=== PATIENT | female | born 1965 | race Caucasian/White ===

== ENCOUNTER 2018-06-06 13:19 | Inpatient (IN) | payer MEDICARE ==
[2018-06-06] VITALS (11 sets, daily range): BP systolic 134–181; BP diastolic 75–103; BMI 54.3
[~2018-06-06] VITALS: Ht 157.5 cm; Wt 132.0 kg
--- NOTE | ~2018-06-06 | MORECARE ---
CASE MANAGEMENT DISCHARGE SUMMARY PATIENT: DARLINE HUDDLESTON UNIT: [id number] ADM DATE: 06/06/18 AGE: 53 : 65 SEX: F ROOM/BED: D.2235 AUTHOR: RIGO,DOC PHYSICIAN: REFERRING PHYSICIAN: KACY HENSON MD DATE OF SERVICE: 06/12/18 Discharge Plan Patient Name: DARLINE HUDDLESTON Facility: [facility]:[place] : 1965 Planned Disposition: Home Anticipated Discharge Date: Discharge Date: Expected LOS: Initial Reviewer: [email or web address] Initial Review Date: 06/06/2018 Generated: 06/12/18 1:59 pm Comments DCP- Discharge Planning Updated by [email or web address]: Yomaira Lenz on 06/12/18 11:[address] Met with patient, she does not have home oxygen. Walk test ordered and I spoke with Javon with RT. Her DME company for CPAP and her nebulizer is [employer]. I will order oxygen if she qualifies. CM will continue to follow and assist with discharge planning/needs. DCP- Discharge Planning Updated by [email or web address]: Isabel Olivo on 06/09/18 5:[address] Patient Name: DARLINE HUDDLESTON Admission Status: ER Accout number: [id number] Admission Date: 06-06-2018 : 1965 Admission Diagnosis: Attending: KACY HENSON Current LOS: 3 Anticipated DC Date: Planned Disposition: Home Primary Insurance: MEDICARE A & B Discharge Planning Comments: CM met with patient at bedside. Patient plans on returning to her home. She states that she lives alone. She does have home 02 , nebulizer and a cane. Patient denies any discharge needs at this time. CM will continue to follow and assist as needed with discharge planning / needs. Nitroglycerin Neutralizer: Isabel Olivo DCPIA - Discharge Planning Initial Assessment Updated by [email or web address]: Isabel Olivo on 06/09/18 6:26 pm * Is the patient Alert and Oriented? Yes * How many steps to enter\exit or inside your home? * PCP Dr Glass * Pharmacy [facility] * Preadmission Environment Home Alone * ADLs Independent * Equipment Nebulizer * Other Equipment 02 , cane * List name and contact numbers for known caregivers / representatives who currently or will assist patient after discharge: Christina Flower [phone] * Verbal permission to speak to the caregivers and representatives has been obtained from the patient. N/A * Community resources currently utilized None * Additional services required to return to the preadmission environment? No * Can the patient safely return to the preadmission environment? Yes * Has this patient been hospitalized within the prior 30 days at any hospital? No Last DP export: 06/09/18 5:30 p Patient Name: DARLINE HUDDLESTON Page 58059 at 1259 All edits/amendments must be made on the electronic document DICTATION DATE: 06/12/181257 MESH CUTTER: ESCOBAR 06/12/181257 RPT#: [id number] DC DATE: STATUS: ADM IN [facility] [address] [place] [address] END OF REPORT
--- NOTE | ~2018-06-06 | CN ---
PATIENT NAME:DARLINE LOPEZ MEDICAL RECORD: [id number] : 65 LOCATION:[id number] ADMIT DATE: 06/06/18 ACCOUNT: [id number] CONSULTING PHYSICIAN: BRYAN HARDIN MD REFERRING PHYSICIAN: KACY HENSON MD DATE OF CONSULTATION: 06/07/2018 CONSULT REQUESTING PHYSICIAN: Kacy Henson MD REASON FOR CONSULTATION: Acute exacerbation of COPD, pneumonia. HISTORY OF PRESENT ILLNESS: Ms. Lopez is a 53-year-old female who has a history of obstructive sleep apnea, COPD. According to the patient, she is sick for the last 2 weeks, but this week she has a low-grade fever and her breathing was getting worse. EMS was called and the patient was brought into the ER. She was put on BiPAP. Now, she is feeling a little bit better. She coughed without much sputum production. Denies any chest pain. She has gained significant amount of weight over the last few weeks. REVIEW OF SYSTEMS: As in history of present illness. PAST MEDICAL HISTORY: 1. Obstructive sleep apnea, on CPAP. 2. COPD. 3. Diabetes mellitus. 4. Chronic back ache. ALLERGIES: There are no known drug allergy. MEDICATIONS: On [employer] is reviewed. PERSONAL AND SOCIAL HISTORY: The patient is an ex-smoker. She is a nondrinker. FAMILY HISTORY: Noncontributory. PHYSICAL EXAMINATION: GENERAL: Now, the patient is lying comfortably in bed. She is not in acute distress. VITAL SIGNS: The blood pressure is 159/88, pulse is 83, respiration is 20, temperature is 98.4, and SpO2 is 97% on 35% BiPAP. HEENT: Conjunctivae are pink. Sclerae are not icteric. NECK: Supple, no JVD. CHEST: There are wheeze on forceful expiration. There are crackles at the left base. HEART: Rhythm regular, normal sound, no murmur. ABDOMEN: Soft, bowel sounds present. No hepatosplenomegaly. RECTAL: Deferred. EXTREMITIES: No cyanosis, no clubbing. There is 1+ pedal edema. CENTRAL NERVOUS SYSTEM: The patient is awake and alert. There are no obvious cranial nerve abnormality. The gait was not tested. CHEST RADIOGRAPH: There is a patchy infiltrate in the left mid lung and left lower lobe. The D-dimer is positive. CONSULT REPORT [id number] DARLINE LOPEZ OTHER LABORATORY DATA: CBC: The WBC is 10.1, hemoglobin 10.8, hematocrit 35, the platelet count 140. Chemistry: Sodium 136, potassium 4.5, BUN is 13, creatinine 0.7. ABG: The pH is 7.37, pCO2 of 52.6, pO2 is 77, bicarbonate is 30.7. IMPRESSION: 1. Acute hypoxic respiratory failure. 2. Acute exacerbation of COPD. 3. Pneumonia, left mid lung, most likely community-acquired pneumonia. 4. Dyspnea on exertion. 5. Obstructive sleep apnea. 6. Morbid obesity. 7. Positive D-dimer, rule out PTE. RECOMMENDATION: 1. Continue Levaquin. I will add Rocephin IV to cover for Gram-negative laith and CAP. 2. Methylprednisolone IV. 3. Brovana, budesonide nebulizer. 4. Albuterol/ipratropium nebulizer. 5. Check ultrasound of the lower extremity. 6. Lovenox noted. 7. The patient can use her own CPAP machine. Dr. Henson, thank you for involving me in the care of Ms. Lopez. TRANSINT:[id number] Voice Confirmation ID: [id number] DOCUMENT ID: [id number] BRYAN HARDIN MD CC: [id number] DICTATION DATE: 06/07/18 1151 VOCATIONAL PSYCHOLOGIST: 06/07/18 1359 ADM IN [facility] [address] [place] [address]
--- NOTE | ~2018-06-06 | MORECARE ---
CASE MANAGEMENT DISCHARGE SUMMARY PATIENT: DARLINE HUDDLESTON UNIT: [id number] ADM DATE: 06/06/18 AGE: 53 : 65 SEX: F ROOM/BED: D.2725 AUTHOR: RIGO,DOC PHYSICIAN: REFERRING PHYSICIAN: KACY HENSON MD DATE OF SERVICE: 06/13/18 Discharge Plan Patient Name: DARLINE HUDDLESTON Facility: [facility]:[place] : 1965 Planned Disposition: Home Anticipated Discharge Date: Discharge Date: Expected LOS: Initial Reviewer: [email or web address] Initial Review Date: 06/06/2018 Generated: 06/13/18 12:30 pm Comments DCP- Discharge Planning Updated by [email or web address]: Yomaira Lenz on 06/13/18 10:[address] Received order for discharge. States her sister is picking her up at 3:00. perinatal coordinator informed. Refuses home health. States "I get around pretty good and my sister can help me if I need it." She does have her portable oxygen, I told her she needed to notify [employer] when she leaves for home oxygen to be set up. CM will continue to follow and assist with discharge planning/needs. DCP- Discharge Planning Updated by [email or web address]: Yomaira Lenz on 06/12/18 3:[address] Portable oxygen has been delivered to patient for home use. CM will continue to follow and assist with discharge planning/needs. DCP- Discharge Planning Updated by [email or web address]: Yomaira Lenz on 06/12/18 1:[address] She does qualify for home oxygen per walk test. I called [employer], they are delivering it to her room today. Clinical faxed to [facility]. CM will continue to follow and assist with discharge planning/needs. DCP- Discharge Planning Updated by [email or web address]: Yomaira Lenz on 06/12/18 11:[address] Met with patient, she does not have home oxygen. Walk test ordered and I spoke with Javon with RT. Her DME company for CPAP and her nebulizer is [employer]. I will order oxygen if she qualifies. CM will continue to follow and assist with discharge planning/needs. DCP- Discharge Planning Updated by [email or web address]: Isabel Olivo on 06/09/18 5:[address] Patient Name: DARLINE HUDDLESTON Admission Status: ER Accout number: [id number] Admission Date: 06-06-2018 : 1965 Admission Diagnosis: Attending: KACY HENSON Current LOS: 3 Anticipated DC Date: Planned Disposition: Home Primary Insurance: MEDICARE A & B Discharge Planning Comments: CM met with patient at bedside. Patient plans on returning to her home. She states that she lives alone. She does have home 02 , nebulizer and a cane. Patient denies any discharge needs at this time. CM will continue to follow and assist as needed with discharge planning / needs. Manuscripts Archivist: Isabel Olivo DCPIA - Discharge Planning Initial Assessment Updated by [email or web address]: Isabel Olivo on 06/09/18 6:26 pm * Is the patient Alert and Oriented? Yes * How many steps to enter\\exit or inside your home? * PCP Dr Glass * Pharmacy [facility] [place] * Preadmission Environment Home Alone * ADLs Independent * Equipment Nebulizer * Other Equipment 02 , cane * List name and contact numbers for known caregivers / representatives who currently or will assist patient after discharge: Christina Flower [phone] * Verbal permission to speak to the caregivers and representatives has been obtained from the patient. N/A * Community resources currently utilized None * Additional services required to return to the preadmission environment? No * Can the patient safely return to the preadmission environment? Yes * Has this patient been hospitalized within the prior 30 days at any hospital? No Coverage Notice Reviewer: [id number] Thierno Lenz Notice Issued Date-Time: 06/13/2018 11:07 Notice Type: IM Discharge Notice Notice Delivered To: Patient Relationship to Patient: Self Fluorescent Solution Mixer Name: Delivery Method: HAND - Hand Delivered Luli Days: Prior Verbal Notification: Recipient Understood Notice: Yes Recipient Signature: Yes Med Rec Note Co-signed by Attending: Coverage Notice Comment: IMM explained, signed, copy given, original placed in MR Last DP export: 06/12/18 3:08 p Patient Name: DARLINE HUDDLESTON Page 24814 at 1131 All edits/amendments must be made on the electronic document DICTATION DATE: 06/13/181129 RESEARCH ASSISTANT PROFESSOR: ESCOBAR 06/13/18 113 RPT#: [id number] NE DATE: STATUS: ADM IN [facility] [address] [place] [address] END OF REPORT
--- NOTE | ~2018-06-06 | MORECARE ---
CASE MANAGEMENT DISCHARGE SUMMARY PATIENT: DARLINE HUDDLESTON UNIT: [id number] ADM DATE: 06/06/18 AGE: 53 : 65 SEX: F ROOM/BED: D.2235 AUTHOR: NATALIYA SIERRA PHYSICIAN: REFERRING PHYSICIAN: KACY HENSON MD DATE OF SERVICE: 06/12/18 Discharge Plan Patient Name: DARLINE HUDDLESTON Facility: [facility]:[place] : 1965 Planned Disposition: Home Anticipated Discharge Date: Discharge Date: Expected LOS: Initial Reviewer: [email or web address] Initial Review Date: 06/06/2018 Generated: 06/12/18 5:08 pm Comments DCP- Discharge Planning Updated by [email or web address]: Yomaira Lenz on 06/12/18 3:[address] Portable oxygen has been delivered to patient for home use. CM will continue to follow and assist with discharge planning/needs. DCP- Discharge Planning Updated by [email or web address]: Yomaira Lenz on 06/12/18 1:[address] She does qualify for home oxygen per walk test. I called [facility], they are delivering it to her room today. Clinical faxed to [facility]. CM will continue to follow and assist with discharge planning/needs. DCP- Discharge Planning Updated by [email or web address]: Yomaira Lenz on 06/12/18 11:[address] Met with patient, she does not have home oxygen. Walk test ordered and I spoke with Javon with RT. Her DME company for CPAP and her nebulizer is [employer]. I will order oxygen if she qualifies. CM will continue to follow and assist with discharge planning/needs. DCP- Discharge Planning Updated by [email or web address]: Isabel Olivo on 06/09/18 5:[address] Patient Name: DARLINE HUDDLESTON Admission Status: ER Accout number: [id number] Admission Date: 06-06-2018 : 1965 Admission Diagnosis: Attending: KACY HENSON Current LOS: 3 Anticipated DC Date: Planned Disposition: Home Primary Insurance: MEDICARE A & B Discharge Planning Comments: CM met with patient at bedside. Patient plans on returning to her home. She states that she lives alone. She does have home 02 , nebulizer and a cane. Patient denies any discharge needs at this time. CM will continue to follow and assist as needed with discharge planning / needs. Stablehand: Isabel Olivo DCPIA - Discharge Planning Initial Assessment Updated by [email or web address]: Isabel Olivo on 06/09/18 6:26 pm * Is the patient Alert and Oriented? Yes * How many steps to enter\exit or inside your home? * PCP Dr Glass * Pharmacy [facility] [place] * Preadmission Environment Home Alone * ADLs Independent * Equipment Nebulizer * Other Equipment 02 , cane * List name and contact numbers for known caregivers / representatives who currently or will assist patient after discharge: Christina Flower [phone] * Verbal permission to speak to the caregivers and representatives has been obtained from the patient. N/A * Community resources currently utilized None * Additional services required to return to the preadmission environment? No * Can the patient safely return to the preadmission environment? Yes * Has this patient been hospitalized within the prior 30 days at any hospital? No Last DP export: 06/12/18 1:15 p Patient Name: DARLINE HUDDLESTON Page 01675 at 1608 All edits/amendments must be made on the electronic document DICTATION DATE: 06/12/181607 SSN/SSBN WEAPONS EQUIPMENT OPERATOR: ESCOBAR 06/12/181607 RPT#: [id number] DC DATE: STATUS: ADM IN [facility] [address] [place] [address] END OF REPORT
--- NOTE | ~2018-06-06 | MORECARE ---
CASE MANAGEMENT DISCHARGE SUMMARY PATIENT: DARLINE HUDDLESTON UNIT: [id number] ADM DATE: 06/06/18 AGE: 53 : 65 SEX: F ROOM/BED: D.2313 AUTHOR: RIGO,DOC PHYSICIAN: REFERRING PHYSICIAN: KACY HENSON MD DATE OF SERVICE: 06/09/18 Discharge Plan Patient Name: DARLINE HUDDLESTON Facility: [facility]:[place] : 1965 Planned Disposition: Home Anticipated Discharge Date: Discharge Date: Expected LOS: Initial Reviewer: [email or web address] Initial Review Date: 06/06/2018 Generated: 06/09/18 7:30 pm Comments DCP- Discharge Planning Updated by [email or web address]: Isabel Olivo on 06/09/18 5:[address] Patient Name: DARLINE HUDDLESTON Admission Status: ER Accout number: [id number] Admission Date: 06-06-2018 : 1965 Admission Diagnosis: Attending: KACY HENSON Current LOS: 3 Anticipated DC Date: Planned Disposition: Home Primary Insurance: MEDICARE A & B Discharge Planning Comments: CM met with patient at bedside. Patient plans on returning to her home. She states that she lives alone. She does have home 02 , nebulizer and a cane. Patient denies any discharge needs at this time. CM will continue to follow and assist as needed with discharge planning / needs. Forwarder Operator: Isabel Olivo DCPIA - Discharge Planning Initial Assessment Updated by [email or web address]: Isabel Olivo on 06/09/18 6:26 pm * Is the patient Alert and Oriented? Yes * How many steps to enter\exit or inside your home? * PCP Dr Glass * Pharmacy [facility] [place] * Preadmission Environment Home Alone * ADLs Independent * Equipment Nebulizer * Other Equipment 02 , cane * List name and contact numbers for known caregivers / representatives who currently or will assist patient after discharge: Christina Flower [phone] * Verbal permission to speak to the caregivers and representatives has been obtained from the patient. N/A * Community resources currently utilized None * Additional services required to return to the preadmission environment? No * Can the patient safely return to the preadmission environment? Yes * Has this patient been hospitalized within the prior 30 days at any hospital? No Patient Name: DARLINE HUDDLESTON Page 84544 at 1830 All edits/amendments must be made on the electronic document DICTATION DATE: 06/09/181828 MIRROR MAKER: ESCOBAR 06/09/181828 RPT#: [id number] DC DATE: STATUS: ADM IN [facility] [address] [place] [address] END OF REPORT
--- NOTE | ~2018-06-06 | MORECARE ---
CASE MANAGEMENT DISCHARGE SUMMARY PATIENT: DARLINE HUDDLESTON UNIT: [id number] ADM DATE: 06/06/18 AGE: 53 : 65 SEX: F ROOM/BED: D.2235 AUTHOR: RIGO,DOC PHYSICIAN: REFERRING PHYSICIAN: KACY HENSON MD DATE OF SERVICE: 06/12/18 Discharge Plan Patient Name: DARLINE HUDDLESTON Facility: [facility]:[place] : 1965 Planned Disposition: Home Anticipated Discharge Date: Discharge Date: Expected LOS: Initial Reviewer: [id number] Initial Review Date: 06/06/2018 Generated: 06/12/18 3:15 pm Comments DCP- Discharge Planning Updated by [email or web address]: Yomaira Lenz on 06/12/18 1:[address] She does qualify for home oxygen per walk test. I called [employer], they are delivering it to her room today. Clinical faxed to [facility]. CM will continue to follow and assist with discharge planning/needs. DCP- Discharge Planning Updated by [email or web address]: Yomaira Lenz on 06/12/18 11:[address] Met with patient, she does not have home oxygen. Walk test ordered and I spoke with Javon with RT. Her DME company for CPAP and her nebulizer is [employer]. I will order oxygen if she qualifies. CM will continue to follow and assist with discharge planning/needs. DCP- Discharge Planning Updated by [email or web address]: Isabel Olivo on 06/09/18 5:[address] Patient Name: DARLINE HUDDLESTON Admission Status: ER Accout number: [id number] Admission Date: 06-06-2018 : 1965 Admission Diagnosis: Attending: KACY HENSON Current LOS: 3 Anticipated DC Date: Planned Disposition: Home Primary Insurance: MEDICARE A & B Discharge Planning Comments: CM met with patient at bedside. Patient plans on returning to her home. She states that she lives alone. She does have home 02 , nebulizer and a cane. Patient denies any discharge needs at this time. CM will continue to follow and assist as needed with discharge planning / needs. Pricing Consultant: Isabel Olivo DCPIA - Discharge Planning Initial Assessment Updated by [email or web address]: Isabel Olivo on 06/09/18 6:26 pm * Is the patient Alert and Oriented? Yes * How many steps to enter\exit or inside your home? * PCP Dr Glass * Pharmacy [facility] [place] * Preadmission Environment Home Alone * ADLs Independent * Equipment Nebulizer * Other Equipment 02 , cane * List name and contact numbers for known caregivers / representatives who currently or will assist patient after discharge: Christina Flower [phone] * Verbal permission to speak to the caregivers and representatives has been obtained from the patient. N/A * Community resources currently utilized None * Additional services required to return to the preadmission environment? No * Can the patient safely return to the preadmission environment? Yes * Has this patient been hospitalized within the prior 30 days at any hospital? No External Providers [facility] Next Contact Date: Service Request Date: Service Type: Resolution: Reviewer: Comments: Last DP export: 06/12/18 11:59 a Patient Name: DARLINE HUDDLESTON Page 81703 at 1415 All edits/amendments must be made on the electronic document DICTATION DATE: 06/12/181414 RIG MECHANIC: ESCOBAR 06/12/181414 RPT#: [id number] [place] DATE: STATUS: ADM IN [place] [address] [place] [address] END OF REPORT
[2018-06-06] MEDS ORDERED: NOVOLOG100 UNIT/1 SQ (13:27)
[2018-06-06] MEDS ORDERED: ZOFRAN ODT4 MG/UDTAB PO (13:27)
[2018-06-06] MEDS ORDERED: LEVEMIR IN100 UNITS/ SC (13:27)
[2018-06-06] MEDS ORDERED: NORCO 10-325 TA1 TAB PO (13:27)
[2018-06-06] MEDS ORDERED: ZOLOFT100 MG PO (13:28)
[2018-06-06] MEDS ORDERED: PROPYLTHIOURACI50 MG PO (13:28)
[2018-06-06] MEDS ORDERED: OXYBUTYNIN10 MG/BOTT PO (13:28)
[2018-06-06] MEDS ORDERED: TESSALON PERLE100 MG PO (13:28)
[2018-06-06] MEDS ORDERED: VICTOZA0.6 MG/0.1 SQ (13:29)
[2018-06-06] MEDS ORDERED: VENTOLIN HFA18 GM INH (13:29)
[2018-06-06 14:20] LABS: BASOPHILS 0.4 % (0-2); EOSINOPHILS 0.7 % (0-7); HEMOGLOBIN 10.8 g/dL (12-16); IMMATURE GRANULOCYTES 0.3 % (0-5); LYMPHOCYTES 11.4 % (15-50); MCH 27.9 pg (26.0-34.0); MCHC 30.9 g/dL (31.0-37.0); MCV 90.4 fL (80.0-100.0); MEAN PLATELET VOLUME 11.1 fL (7.4-10.4); MONOCYTES 8.6 % (2-11); NEUTROPHILS 78.6 % (40-80); PLATELET COUNT 140 10x3/uL (130-400); RBC 3.87 10x6/uL (4.00-5.40); RDW 15.2 % (11.5-14.5); WBC 10.1 10x3/uL (4.8-10.8)
[2018-06-06 14:31] LABS: APTT 28.7 SECONDS (22.8-39.4); INR 1.13 (0.85-1.17)
[2018-06-06 14:36] LABS: ALKALINE PHOSPHATASE 84 U/L (46-116); ALT (SGPT) 36 U/L (10-68); BILIRUBIN - TOTAL 0.35 mg/dL (0.2-1.3); CALC OSMOLALITY 281 mosm/kg (275-300); CHLORIDE - SERUM 104 mmol/L (98-107); CREATININE - SERUM 0.8 mg/dL (0.6-1.3); GLUCOSE 191 mg/dL (74-106); POTASSIUM - SERUM 4.4 mmol/L (3.5-5.1); PROTEIN - SERUM 7.1 g/dL (6.4-8.2); SODIUM 138 mmol/L (136-145); UREA NITROGEN 15 mg/dL (7-18); eGFR NON AFRICAN AMERICAN 79 mL/min (90-120)
[2018-06-06 14:46] LABS: CKMB 1.2 U/L (0.0-3.6); CREATINE KINASE 311 UL (21-215); PRO BNP 155 pg/mL (0-125); TROPONIN-I < 0.017 ng/mL (0.000-0.060)
[2018-06-06 15:55] LABS: APPEARANCE CLEAR (CLEAR); BILIRUBIN NEGATIVE (NEGATIVE); COLOR YELLOW (YELLOW); GLUCOSE NEGATIVE (NEGATIVE); KETONE NEGATIVE (NEGATIVE); NITRITE NEGATIVE (NEGATIVE); PROTEIN NEGATIVE (NEGATIVE); UROBILINOGEN NORMAL (NORMAL)
[2018-06-06 15:56] LABS: BACTERIA FEW /hpf (NONE SEEN); EPITHELIAL CELLS 0-5 /hpf (0-5); RED CELLS - URINE 0-5 /hpf (0-5); WHITE CELLS - URINE 0-5 /hpf (0-5)
[2018-06-07] VITALS (24 sets, daily range): BP systolic 130–175; BP diastolic 76–107; BMI 54.1
[2018-06-07 04:02] LABS: ALBUMIN 3.1 g/dL (3.4-5.0); ALKALINE PHOSPHATASE 85 U/L (46-116); CALCIUM 8.4 mg/dL (8.5-10.1); CARBON DIOXIDE 29.3 mmol/L (21.0-32.0); CHLORIDE - SERUM 99 mmol/L (98-107); CREATININE - SERUM 0.7 mg/dL (0.6-1.3); MAGNESIUM - SERUM 2.1 mg/dL (1.8-2.4); POTASSIUM - SERUM 4.5 mmol/L (3.5-5.1); PROTEIN - SERUM 7.6 g/dL (6.4-8.2); SODIUM 136 mmol/L (136-145); UREA NITROGEN 13 mg/dL (7-18); eGFR NON AFRICAN AMERICAN > 90 mL/min (90-120)
[2018-06-07 04:07] LABS: ALT (SGPT) 48 U/L (10-68); CALC OSMOLALITY 280 mosm/kg (275-300); GLUCOSE 260 mg/dL (74-106)
[2018-06-07 04:10] LABS: BASOPHILS 0.3 % (0-2); EOSINOPHILS 0 % (0-7); HEMATOCRIT 37.9 % (36.0-48.0); HEMOGLOBIN 11.9 g/dL (12-16); IMMATURE GRANULOCYTES 0.6 % (0-5); LYMPHOCYTES 7.6 % (15-50); MCHC 31.4 g/dL (31.0-37.0); MCV 89.2 fL (80.0-100.0); MEAN PLATELET VOLUME 11.7 fL (7.4-10.4); MONOCYTES 2.8 % (2-11); NEUTROPHILS 88.7 % (40-80); PLATELET COUNT 156 10x3/uL (130-400); RBC 4.25 10x6/uL (4.00-5.40); RDW 14.8 % (11.5-14.5); WBC 10.2 10x3/uL (4.8-10.8)
[2018-06-08] VITALS (25 sets, daily range): BP systolic 94–164; BP diastolic 66–118; Ht 157.5 cm; Wt 132.0 kg
[2018-06-08 04:30] LABS: BASOPHILS 0.1 % (0-2); EOSINOPHILS 0 % (0-7); HEMATOCRIT 37.6 % (36.0-48.0); HEMOGLOBIN 11.8 g/dL (12-16); IMMATURE GRANULOCYTES 0.6 % (0-5); LYMPHOCYTES 8.8 % (15-50); MCHC 31.4 g/dL (31.0-37.0); MCV 89.1 fL (80.0-100.0); MEAN PLATELET VOLUME 11.3 fL (7.4-10.4); MONOCYTES 6.2 % (2-11); NEUTROPHILS 84.3 % (40-80); PLATELET COUNT 153 10x3/uL (130-400); RBC 4.22 10x6/uL (4.00-5.40); RDW 14.7 % (11.5-14.5)
[2018-06-08 04:31] LABS: WBC 15.6 10x3/uL (4.8-10.8)
[2018-06-08 04:59] LABS: ALBUMIN 2.9 g/dL (3.4-5.0); ANION GAP 11.5 mmol/L (8-16); BILIRUBIN - TOTAL 0.29 mg/dL (0.2-1.3); CALCIUM 8.6 mg/dL (8.5-10.1); MAGNESIUM - SERUM 2.4 mg/dL (1.8-2.4); POTASSIUM - SERUM 4.5 mmol/L (3.5-5.1); PROTEIN - SERUM 6.9 g/dL (6.4-8.2)
[2018-06-08 05:00] LABS: CREATININE - SERUM 0.9 mg/dL (0.6-1.3)
[2018-06-09] VITALS (15 sets, daily range): BP systolic 130–166; BP diastolic 76–98
[2018-06-09 04:23] LABS: BASOPHILS 0.2 % (0-2); EOSINOPHILS 0 % (0-7); HEMATOCRIT 37.4 % (36.0-48.0); HEMOGLOBIN 11.6 g/dL (12-16); IMMATURE GRANULOCYTES 1.4 % (0-5); LYMPHOCYTES 9.4 % (15-50); MCH 27.9 pg (26.0-34.0); MCV 89.9 fL (80.0-100.0); MEAN PLATELET VOLUME 11.8 fL (7.4-10.4); MONOCYTES 5.6 % (2-11); NEUTROPHILS 83.4 % (40-80); PLATELET COUNT 176 10x3/uL (130-400); RBC 4.16 10x6/uL (4.00-5.40); RDW 14.7 % (11.5-14.5); WBC 19.4 10x3/uL (4.8-10.8)
[2018-06-09 04:45] LABS: ALBUMIN 2.7 g/dL (3.4-5.0); ALKALINE PHOSPHATASE 81 U/L (46-116); ALT (SGPT) 35 U/L (10-68); BILIRUBIN - TOTAL 0.17 mg/dL (0.2-1.3); CALCIUM 8.6 mg/dL (8.5-10.1); CARBON DIOXIDE 29.6 mmol/L (21.0-32.0); CHLORIDE - SERUM 103 mmol/L (98-107); CREATININE - SERUM 0.8 mg/dL (0.6-1.3); MAGNESIUM - SERUM 2.3 mg/dL (1.8-2.4); POTASSIUM - SERUM 4.2 mmol/L (3.5-5.1); SODIUM 139 mmol/L (136-145); UREA NITROGEN 27 mg/dL (7-18); eGFR NON AFRICAN AMERICAN 79 mL/min (90-120)
[2018-06-09 04:46] LABS: CALC OSMOLALITY 293 mosm/kg (275-300); GLUCOSE 302 mg/dL (74-106)
[2018-06-10 03:00] VITALS: BP 147/85
[2018-06-10 04:47] LABS: BASOPHILS 0.2 % (0-2); EOSINOPHILS 0 % (0-7); HEMATOCRIT 38.7 % (36.0-48.0); LYMPHOCYTES 11.5 % (15-50); MCH 28.1 pg (26.0-34.0); MCV 90.6 fL (80.0-100.0); MEAN PLATELET VOLUME 11.3 fL (7.4-10.4); MONOCYTES 7.1 % (2-11); NEUTROPHILS 78.2 % (40-80); PLATELET COUNT 186 10x3/uL (130-400); RBC 4.27 10x6/uL (4.00-5.40); RDW 14.6 % (11.5-14.5); WBC 19.8 10x3/uL (4.8-10.8)
[2018-06-10 05:06] LABS: ALBUMIN 2.6 g/dL (3.4-5.0); ALKALINE PHOSPHATASE 73 U/L (46-116); ALT (SGPT) 33 U/L (10-68); BILIRUBIN - TOTAL 0.17 mg/dL (0.2-1.3); CALCIUM 8.6 mg/dL (8.5-10.1); CARBON DIOXIDE 31.3 mmol/L (21.0-32.0); CREATININE - SERUM 0.8 mg/dL (0.6-1.3); GLUCOSE 274 mg/dL (74-106); MAGNESIUM - SERUM 2.2 mg/dL (1.8-2.4); PROTEIN - SERUM 6.9 g/dL (6.4-8.2); UREA NITROGEN 30 mg/dL (7-18); eGFR NON AFRICAN AMERICAN 79 mL/min (90-120)
[2018-06-10 07:00] VITALS: BP 164/89
[2018-06-10 07:10] LABS: CALC OSMOLALITY 298 mosm/kg (275-300); CHLORIDE - SERUM 105 mmol/L (98-107); POTASSIUM - SERUM 4.6 mmol/L (3.5-5.1); SODIUM 142 mmol/L (136-145)
[2018-06-10 08:00] VITALS: BP 172/99
[2018-06-10 11:00] VITALS: BP 177/98
[2018-06-10 21:31] VITALS: BP 141/71
[2018-06-11 06:19] VITALS: BP 132/69
[2018-06-11 06:27] LABS: BASOPHILS 0.2 % (0-2); EOSINOPHILS 0.1 % (0-7); HEMATOCRIT 38.4 % (36.0-48.0); IMMATURE GRANULOCYTES 5.6 % (0-5); LYMPHOCYTES 15.2 % (15-50); MCHC 31.3 g/dL (31.0-37.0); MCV 89.7 fL (80.0-100.0); MEAN PLATELET VOLUME 11.3 fL (7.4-10.4); MONOCYTES 8.2 % (2-11); NEUTROPHILS 70.7 % (40-80); PLATELET COUNT 186 10x3/uL (130-400); RBC 4.28 10x6/uL (4.00-5.40); RDW 14.4 % (11.5-14.5); WBC 19.9 10x3/uL (4.8-10.8)
[2018-06-11 06:45] LABS: ALBUMIN 2.8 g/dL (3.4-5.0); ALKALINE PHOSPHATASE 73 U/L (46-116); ALT (SGPT) 32 U/L (10-68); BILIRUBIN - TOTAL 0.17 mg/dL (0.2-1.3); CALCIUM 8.8 mg/dL (8.5-10.1); CARBON DIOXIDE 30.4 mmol/L (21.0-32.0); CREATININE - SERUM 0.8 mg/dL (0.6-1.3); GLUCOSE 262 mg/dL (74-106); UREA NITROGEN 29 mg/dL (7-18); eGFR NON AFRICAN AMERICAN 79 mL/min (90-120)
[2018-06-11 07:03] LABS: CALC OSMOLALITY 293 mosm/kg (275-300); CHLORIDE - SERUM 103 mmol/L (98-107); POTASSIUM - SERUM 4.5 mmol/L (3.5-5.1); SODIUM 140 mmol/L (136-145)
[2018-06-11 09:08] VITALS: BP 176/78
[2018-06-11 12:13] VITALS: BP 156/76
[2018-06-11 12:17] LABS: IMMUNOGLOBULIN A 332 mg/dL (87-352); IMMUNOGLOBULIN G 1069 mg/dL (700-1600)
[2018-06-11 17:07] VITALS: BP 140/74
[2018-06-11 20:45] VITALS: BP 173/83
[2018-06-12 01:09] VITALS: BP 164/74
[2018-06-12 04:49] VITALS: BP 154/70
[2018-06-12 05:23] LABS: ALBUMIN 2.8 g/dL (3.4-5.0); ALKALINE PHOSPHATASE 68 U/L (46-116); ALT (SGPT) 32 U/L (10-68); BILIRUBIN - TOTAL 0.28 mg/dL (0.2-1.3); CALCIUM 8.8 mg/dL (8.5-10.1); CARBON DIOXIDE 36.7 mmol/L (21.0-32.0); CHLORIDE - SERUM 101 mmol/L (98-107); CREATININE - SERUM 0.8 mg/dL (0.6-1.3); PHOSPHOROUS 4.7 mg/dL (2.5-4.9); POTASSIUM - SERUM 4.6 mmol/L (3.5-5.1); PROTEIN - SERUM 7.1 g/dL (6.4-8.2); SODIUM 143 mmol/L (136-145); UREA NITROGEN 26 mg/dL (7-18); eGFR NON AFRICAN AMERICAN 79 mL/min (90-120)
[2018-06-12 05:25] LABS: CALC OSMOLALITY 293 mosm/kg (275-300); GLUCOSE 176 mg/dL (74-106)
[2018-06-12 05:37] LABS: BASOPHILS 0.2 % (0-2); EOSINOPHILS 0 % (0-7); HEMOGLOBIN 12.6 g/dL (12-16); IMMATURE GRANULOCYTES 6.4 % (0-5); LYMPHOCYTES 14.5 % (15-50); MCHC 31.5 g/dL (31.0-37.0); MCV 88.9 fL (80.0-100.0); MEAN PLATELET VOLUME 11.3 fL (7.4-10.4); MONOCYTES 7.1 % (2-11); NEUTROPHILS 71.8 % (40-80); PLATELET COUNT 183 10x3/uL (130-400); RDW 14.2 % (11.5-14.5); WBC 20.8 10x3/uL (4.8-10.8)
[2018-06-12 08:33] VITALS: BP 185/94
[2018-06-12 14:35] VITALS: BP 156/82
[2018-06-12 20:31] VITALS: BP 162/69
[2018-06-12 21:08] LABS: IMMUNOGLOBULIN E 383 IU/mL (0-100)
[2018-06-13 00:50] VITALS: BP 135/77
[2018-06-13 05:03] VITALS: BP 164/74
[2018-06-13 08:57] VITALS: BP 105/57
[2018-06-13] MEDS ORDERED: OMNICEF300 MG PO (10:41)
[2018-06-13] MEDS ORDERED: LISINOPRIL10 MG PO (10:43)
[2018-06-13] MEDS ORDERED: PREDNISONE10 MG PO (10:49)
[2018-06-13 12:48] VITALS: BP 93/50
== END 2018-06-13 18:05 | disposition home or self-care (01) | DRG 193 ==
LOC: D.ER 13:19 → D.EDHOLD 16:10 → D.ICU 16:10 → D.MS 06-10 16:15
PROVIDERS: Family Medicine; Internal Medicine Pulmonary Disease
PROC: 5A09357 Assistance with Respiratory Ventilation, Less than 24 Consecutive Hours, Continuous Positive Airway Pressure (ICD-10-PCS; principal; 2018-06-06)
DX: J18.9 Pneumonia, unspecified organism (principal); J96.01 Acute respiratory failure with hypoxia; J96.02 Acute respiratory failure with hypercapnia; Z68.43 Body mass index [BMI] 50.0-59.9, adult; J47.1 Bronchiectasis with (acute) exacerbation; I11.0 Hypertensive heart disease with heart failure; I50.9 Heart failure, unspecified; E66.01 Morbid (severe) obesity due to excess calories; G47.33 Obstructive sleep apnea (adult) (pediatric); E11.9 Type 2 diabetes mellitus without complications; G25.2 Other specified forms of tremor; G89.29 Other chronic pain; E04.9 Nontoxic goiter, unspecified; Z86.59 Personal history of other mental and behavioral disorders

== ENCOUNTER 2018-06-30 00:07 | Inpatient (IN) | payer MEDICARE ==
[2018-06-30] VITALS (7 sets, daily range): BP systolic 101–144; BP diastolic 56–89; Ht 157.5 cm; Wt 124.5 kg
[~2018-06-30] VITALS: Ht 157.5 cm; Wt 124.5 kg
--- NOTE | ~2018-06-30 | MORECARE ---
CASE MANAGEMENT DISCHARGE SUMMARY PATIENT: DARLINE HUDDLESTON UNIT: [id number] ADM DATE: 06/30/18 AGE: 53 : 65 SEX: F ROOM/BED: D.2202 AUTHOR: NATALIYA SIERRA PHYSICIAN: REFERRING PHYSICIAN: MIL FUNEZ MD DATE OF SERVICE: 07/03/18 Discharge Plan Patient Name: DARLINE HUDDLESTON Facility: [facility]:[place] : 1965 Planned Disposition: Home Anticipated Discharge Date: Discharge Date: 07/03/2018 Expected LOS: 0 Initial Reviewer: [email or web address] Initial Review Date: 06/30/2018 Generated: 07/03/18 5:07 pm Comments DCP- Discharge Planning Updated by [email or web address]: Yomaira Delfin on 07/03/18 11:[address] Received order for discharge. States she is going home and one of her friends will pick her up. She has her portable oxygen here. States she has oxygen and nebulizer from [employer] States "I don't think I need it though, my oxygen level is always good without it." States she receives her neb meds from the pharmacy and it is 100% paid. Declines home health. States "I have big dogs and I don't need it." CM will continue to follow and assist with discharge planning/needs. DCP- Discharge Planning Updated by [email or web address]: Susan Benson on 06/30/18 11:[address] Patient Name: DARLINE HUDDLESTON Admission Status: ER Accout number: [id number] Admission Date: 06-30-2018 : 1965 Admission Diagnosis: Attending: MIL FUNEZ Current LOS: 1 Anticipated DC Date: Planned Disposition: Home Primary Insurance: MEDICARE A & B Discharge Planning Comments: CM met with patient to assess discharge planning needs. Patient stated that she lives independently at home where she plans to return. She states that she will drive herself home. She does have portable O2 from [employer]. She also has a nebulizer and grab bars in her shower. She stated that she does not want home health. There are 5 steps to enter in her home. She states that her home is safe to return home. CM will continue to follow and assist with DC planning as needed Nurse Clinical: Susan Benson DCPIA - Discharge Planning Initial Assessment Updated by [email or web address]: Susan Benson on 06/30/18 12:17 pm * Is the patient Alert and Oriented? Yes * How many steps to enter\\exit or inside your home? * PCP Lisa reed apn * Pharmacy [facility] * Preadmission Environment Home Alone * ADLs Independent * Equipment Grab Bars Nebulizer Oxygen * Other Equipment portable O2 ONLY- [place] * List name and contact numbers for known caregivers / representatives who currently or will assist patient after discharge: Marisol Flower (sister) [phone] * Verbal permission to speak to the caregivers and representatives has been obtained from the patient. N/A * Community resources currently utilized None * Additional services required to return to the preadmission environment? No * Can the patient safely return to the preadmission environment? Yes * Has this patient been hospitalized within the prior 30 days at any hospital? Yes Coverage Notice Reviewer: [id number] Thierno Lenz Notice Issued Date-Time: 07/03/2018 12:17 Notice Type: IM Discharge Notice Notice Delivered To: Patient Relationship to Patient: Self Director Medical Affairs Name: Delivery Method: HAND - Hand Delivered Luli Days: Prior Verbal Notification: Recipient Understood Notice: Yes Recipient Signature: Yes Med Rec Note Co-signed by Attending: Coverage Notice Comment: IMM explained, signed, copy given, original placed in MR Last DP export: 07/03/18 11:23 Patient Name: DARLINE HUDDLESTON Page 20697 at 1607 All edits/amendments must be made on the electronic document DICTATION DATE: 07/03/18 1606 DATA VIRTUALIZATION CONSULTANT: ESCOBAR 07/03/18 1606 RPT#: [id number] DC DATE:07/03/18 STATUS: DIS IN [facility] [address] [facility] [address] END OF REPORT
--- NOTE | ~2018-06-30 | CN ---
PATIENT NAME:DARLINE LOPEZ MEDICAL RECORD: [id number] : 65 LOCATION:D[facility] [address] ADMIT DATE: 06/30/18 ACCOUNT: [id number] CONSULTING PHYSICIAN: BRYAN HARDIN MD REFERRING PHYSICIAN: MIL FUNEZ MD DATE OF CONSULTATION: 07/01/2018 REQUESTING PHYSICIAN: Keith Ibarra MD REASON FOR CONSULTATION: Acute exacerbation of chronic obstructive pulmonary disease, tracheobronchitis. HISTORY OF PRESENT ILLNESS: Ms. Lopez is a 53-year-old female, very well known to me. The patient was hospitalized in first week of June with pneumonia as well as acute exacerbation of COPD. The patient discharged home. According to the patient, as her steroid finished, she developed worsening shortness of breath and coughing. She was given a course of antibiotic and she was not getting any better. The patient came into the ER and admitted with a questionable pneumonia, COPD exacerbation. REVIEW OF SYSTEMS: As in history of present illness. PAST MEDICAL HISTORY: 1. Obstructive sleep apnea. 2. Chronic obstructive pulmonary disease. 3. Pneumonia. 4. Diabetes mellitus. 5. Chronic backache. 6. Morbid obesity. ALLERGIES: There are no known drug allergy. MEDICATIONS: On Alaris is reviewed. PERSONAL AND SOCIAL HISTORY: The patient is an ex-smoker. She is a nondrinker. FAMILY HISTORY: Noncontributory. PHYSICAL EXAMINATION: GENERAL: The patient is now lying comfortably in bed. She is not in acute distress. VITAL SIGNS: The blood pressure is 118/69, pulse is 109, respiration is 20, temperature 97.9, SpO2 of 99% on 2 liters nasal cannula. HEENT: Conjunctivae are pink. Sclerae are not icteric. NECK: Neck is supple, no JVD. CHEST: The chest excursion is minimal on both sides. There are wheeze on forceful expiration. HEART: Rhythm regular, normal sound, no murmur. ABDOMEN: Abdomen is soft, bowel sounds present. No hepatosplenomegaly. RECTAL: Deferred. EXTREMITIES: No cyanosis, no clubbing, no pedal edema. SKIN: The skin is warm, normal turgor. CENTRAL NERVOUS SYSTEM: The patient is awake and alert. There are no obvious cranial nerve abnormality. The gait was not tested. CONSULT REPORT [id number] DARLINE LOPEZ CHEST RADIOGRAPH: There is no acute infiltrate. LABORATORY DATA: CBC on admission, the WBC was 9.6, hemoglobin 12.1, hematocrit 38.5, the platelet count is 143. The repeat WBC is 16.6. ABG: The pH is 7.39, pCO2 of 49.2, the pO2 is 76, bicarbonate is 30. IMPRESSION: 1. Cujwl-wp-ixcrikv hypoxic respiratory failure. 2. Acute bronchitis. No pneumonia on the 2 chest x-rays. 3. Leukocytosis. 4. Acute febrile illness. 5. Obstructive sleep apnea. The patient is using her CPAP machine regularly. 6. Morbid obesity. RECOMMENDATION: 1. Start Brovana and budesonide nebulizer. 2. Albuterol and ipratropium nebulizer. 3. Continue Levaquin, adjust the dosage. 4. Methylprednisolone IV. 5. Check alpha-1. 6. Follow up labs and chest radiograph. 7. The patient can use her own BiPAP machine. Dr. Ibarra, thank you for involving me in the care of Ms. Lopez. TRANSINT:[id number] Voice Confirmation ID: [id number] DOCUMENT ID: [id number] BRYAN HARDIN MD at 1507 CC: [id number] DICTATION DATE: 07/01/181626 COUNCILOR: 07/01/18 1655 ADM IN [place] [address] [place] [address]
--- NOTE | ~2018-06-30 | MORECARE ---
CASE MANAGEMENT DISCHARGE SUMMARY PATIENT: DARLINE HUDDLESTON UNIT: [id number] ADM DATE: 06/30/18 AGE: 53 : 65 SEX: F ROOM/BED: D.2202 AUTHOR: RIGODOC PHYSICIAN: REFERRING PHYSICIAN: MIL FUNEZ MD DATE OF SERVICE: 06/30/18 Discharge Plan Patient Name: DARLINE HUDDLESTON Facility: [facility]:[place] : 1965 Planned Disposition: Home Anticipated Discharge Date: Discharge Date: Expected LOS: Initial Reviewer: [email or web address] Initial Review Date: 06/30/2018 Generated: 06/30/18 1:22 pm Comments DCP- Discharge Planning Updated by [email or web address]: Susan Benson on 06/30/18 11:[address] Patient Name: DARLINE HUDDLESTON Admission Status: ER Accout number: [id number] Admission Date: 06-30-2018 : 1965 Admission Diagnosis: Attending: MIL FUNEZ Current LOS: 1 Anticipated DC Date: Planned Disposition: Home Primary Insurance: MEDICARE A & B Discharge Planning Comments: CM met with patient to assess discharge planning needs. Patient stated that she lives independently at home where she plans to return. She states that she will drive herself home. She does have portable O2 from [employer]. She also has a nebulizer and grab bars in her shower. She stated that she does not want home health. There are 5 steps to enter in her home. She states that her home is safe to return home. CM will continue to follow and assist with DC planning as needed Car Oiler: Susan Benson DCPIA - Discharge Planning Initial Assessment Updated by [email or web address]: Susan Benson on 06/30/18 12:17 pm * Is the patient Alert and Oriented? Yes * How many steps to enter\exit or inside your home? * PCP Lisa reed apn * Pharmacy [facility] * Preadmission Environment Home Alone * ADLs Independent * Equipment Grab Bars Nebulizer Oxygen * Other Equipment portable O2 ONLY- Bryanna * List name and contact numbers for known caregivers / representatives who currently or will assist patient after discharge: Marisol Mundo (sister) [phone] * Verbal permission to speak to the caregivers and representatives has been obtained from the patient. N/A * Community resources currently utilized None * Additional services required to return to the preadmission environment? No * Can the patient safely return to the preadmission environment? Yes * Has this patient been hospitalized within the prior 30 days at any hospital? Yes Patient Name: DARLINE HUDDLESTON Page 13447 at 1222 All edits/amendments must be made on the electronic document DICTATION DATE: 06/30/18 1221 INFORMATION ENGINEER: ESCOBAR 06/30/18 1221 RPT#: [id number] DC DATE: STATUS: ADM IN [facility] [address] [place] [address] END OF REPORT
--- NOTE | ~2018-06-30 | MORECARE ---
CASE MANAGEMENT DISCHARGE SUMMARY PATIENT: DARLINE HUDDLESTON UNIT: [id number] ADM DATE: 06/30/18 AGE: 53 : 65 SEX: F ROOM/BED: D.2202 AUTHOR: NATALIYA SIERRA PHYSICIAN: REFERRING PHYSICIAN: MIL FUNEZ MD DATE OF SERVICE: 07/03/18 Discharge Plan Patient Name: DARLINE HUDDLESTON Facility: [facility]:[place] : 1965 Planned Disposition: Home Anticipated Discharge Date: Discharge Date: Expected LOS: Initial Reviewer: [email or web address] Initial Review Date: 06/30/2018 Generated: 07/03/18 1:23 pm Comments DCP- Discharge Planning Updated by [email or web address]: Yomaira Delfin on 07/03/18 11:[address] Received order for discharge. States she is going home and one of her friends will pick her up. She has her portable oxygen here. States she has oxygen and nebulizer from [employer]. States "I don't think I need it though, my oxygen level is always good without it." States she receives her neb meds from the pharmacy and it is 100% paid. Declines home health. States "I have big dogs and I don't need it." CM will continue to follow and assist with discharge planning/needs. DCP- Discharge Planning Updated by [email or web address]: Susan Benson on 06/30/18 11:[address] Patient Name: DARLINE HUDDLESTON Admission Status: ER Accout number: [id number] Admission Date: 06-30-2018 : 1965 Admission Diagnosis: Attending: MIL FUNEZ Current LOS: 1 Anticipated DC Date: Planned Disposition: Home Primary Insurance: MEDICARE A & B Discharge Planning Comments: CM met with patient to assess discharge planning needs. Patient stated that she lives independently at home where she plans to return. She states that she will drive herself home. She does have portable O2 from [employer]. She also has a nebulizer and grab bars in her shower. She stated that she does not want home health. There are 5 steps to enter in her home. She states that her home is safe to return home. CM will continue to follow and assist with DC planning as needed Liquor Establishment Manager: Susan Benson DCPIA - Discharge Planning Initial Assessment Updated by [email or web address]: Susan Benson on 06/30/18 12:17 pm * Is the patient Alert and Oriented? Yes * How many steps to enter\\exit or inside your home? * PCP Lisa reed apn * Pharmacy [facility] * Preadmission Environment Home Alone * ADLs Independent * Equipment Grab Bars Nebulizer Oxygen * Other Equipment portable O2 ONLY- Bryanna * List name and contact numbers for known caregivers / representatives who currently or will assist patient after discharge: Marisol Flower (sister) [phone] * Verbal permission to speak to the caregivers and representatives has been obtained from the patient. N/A * Community resources currently utilized None * Additional services required to return to the preadmission environment? No * Can the patient safely return to the preadmission environment? Yes * Has this patient been hospitalized within the prior 30 days at any hospital? Yes Coverage Notice Reviewer: [email or web address] Thierno Lenz Notice Issued Date-Time: 07/03/2018 12:17 Notice Type: IM Discharge Notice Notice Delivered To: Patient Relationship to Patient: Self Agricultural Economist Name: Delivery Method: HAND - Hand Delivered Luli Days: Prior Verbal Notification: Recipient Understood Notice: Yes Recipient Signature: Yes Med Rec Note Co-signed by Attending: Coverage Notice Comment: IMM explained, signed, copy given, original placed in MR Last DP export: 06/30/18 11:22 Patient Name: DARLINE HUDDLESTON Page 18598 at 1223 All edits/amendments must be made on the electronic document DICTATION DATE: 07/03/18 1223 DISH MAKER: ESCOBAR 07/03/18 1223 RPT#: [id number] DC DATE: STATUS: ADM IN [facility] [address] [place] [address] END OF REPORT
[~2018-06-30 00:07] MED LIST: LEVEMIR IN100 UNITS/ SC; LISINOPRIL10 MG PO; NORCO 10-325 TA1 TAB PO; NOVOLOG100 UNIT/1 SQ; OMNICEF300 MG PO; OXYBUTYNIN10 MG/BOTT PO; PREDNISONE10 MG PO; PROPYLTHIOURACI50 MG PO; TESSALON PERLE100 MG PO; VENTOLIN HFA18 GM INH; VICTOZA0.6 MG/0.1 SQ; ZOFRAN ODT4 MG/UDTAB PO; ZOLOFT100 MG PO
[2018-06-30 00:32] LABS: BASOPHILS 0.2 % (0-2); EOSINOPHILS 6.6 % (0-7); HEMATOCRIT 38.5 % (36.0-48.0); HEMOGLOBIN 12.1 g/dL (12-16); IMMATURE GRANULOCYTES 0.3 % (0-5); LYMPHOCYTES 28.5 % (15-50); MCH 27.9 pg (26.0-34.0); MCHC 31.4 g/dL (31.0-37.0); MCV 88.7 fL (80.0-100.0); MEAN PLATELET VOLUME 10.9 fL (7.4-10.4); MONOCYTES 8.8 % (2-11); NEUTROPHILS 55.6 % (40-80); RBC 4.34 10x6/uL (4.00-5.40); RDW 15.1 % (11.5-14.5); WBC 9.6 10x3/uL (4.8-10.8)
[2018-06-30 00:40] LABS: PLATELET COUNT 143 10x3/uL (130-400)
[2018-06-30 00:41] LABS: ALBUMIN 3.1 g/dL (3.4-5.0); ANION GAP 11.1 mmol/L (8-16); BILIRUBIN - TOTAL 0.31 mg/dL (0.2-1.3); CALCIUM 9.1 mg/dL (8.5-10.1); CREATININE - SERUM 0.9 mg/dL (0.6-1.3); POTASSIUM - SERUM 4.1 mmol/L (3.5-5.1); PROTEIN - SERUM 7.1 g/dL (6.4-8.2)
[2018-06-30] MEDS ORDERED: LISINOPRIL5 MG PO (05:02)
[2018-06-30] MEDS ORDERED: LYRICA100 MG PO ×2 (05:05→05:06)
[2018-07-01] VITALS (7 sets, daily range): BP systolic 105–135; BP diastolic 51–71
[2018-07-01 06:11] LABS: BASOPHILS 0.1 % (0-2); EOSINOPHILS 0 % (0-7); HEMATOCRIT 36.2 % (36.0-48.0); HEMOGLOBIN 11.3 g/dL (12-16); IMMATURE GRANULOCYTES 0.4 % (0-5); LYMPHOCYTES 7.4 % (15-50); MCH 27.6 pg (26.0-34.0); MCHC 31.2 g/dL (31.0-37.0); MCV 88.5 fL (80.0-100.0); MEAN PLATELET VOLUME 10.6 fL (7.4-10.4); MONOCYTES 5.9 % (2-11); NEUTROPHILS 86.2 % (40-80); PLATELET COUNT 149 10x3/uL (130-400); RBC 4.09 10x6/uL (4.00-5.40); RDW 15.1 % (11.5-14.5)
[2018-07-01 06:19] LABS: WBC 16.6 10x3/uL (4.8-10.8)
[2018-07-01 06:36] LABS: CALC OSMOLALITY 289 mosm/kg (275-300); CALCIUM 8.8 mg/dL (8.5-10.1); CARBON DIOXIDE 25.6 mmol/L (21.0-32.0); CHLORIDE - SERUM 104 mmol/L (98-107); CREATININE - SERUM 0.8 mg/dL (0.6-1.3); GLUCOSE 259 mg/dL (74-106); POTASSIUM - SERUM 4.3 mmol/L (3.5-5.1); SODIUM 140 mmol/L (136-145); UREA NITROGEN 19 mg/dL (7-18); eGFR NON AFRICAN AMERICAN 79 mL/min (90-120)
[2018-07-02 04:18] LABS: BASOPHILS 0 % (0-2); EOSINOPHILS 0 % (0-7); HEMATOCRIT 34.6 % (36.0-48.0); HEMOGLOBIN 10.8 g/dL (12-16); IMMATURE GRANULOCYTES 0.4 % (0-5); LYMPHOCYTES 9.4 % (15-50); MCHC 31.2 g/dL (31.0-37.0); MCV 89.6 fL (80.0-100.0); MEAN PLATELET VOLUME 10.8 fL (7.4-10.4); MONOCYTES 6.1 % (2-11); NEUTROPHILS 84.1 % (40-80); PLATELET COUNT 165 10x3/uL (130-400); RBC 3.86 10x6/uL (4.00-5.40); RDW 15.2 % (11.5-14.5); WBC 16.2 10x3/uL (4.8-10.8)
[2018-07-02 04:37] LABS: ALBUMIN 2.5 g/dL (3.4-5.0); ALKALINE PHOSPHATASE 60 U/L (46-116); ALT (SGPT) 20 U/L (10-68); BILIRUBIN - TOTAL 0.17 mg/dL (0.2-1.3); CALC OSMOLALITY 292 mosm/kg (275-300); CALCIUM 8.4 mg/dL (8.5-10.1); CARBON DIOXIDE 28.1 mmol/L (21.0-32.0); CHLORIDE - SERUM 106 mmol/L (98-107); CREATININE - SERUM 0.8 mg/dL (0.6-1.3); GLUCOSE 287 mg/dL (74-106); POTASSIUM - SERUM 4.5 mmol/L (3.5-5.1); PROTEIN - SERUM 6.2 g/dL (6.4-8.2); SODIUM 140 mmol/L (136-145); eGFR NON AFRICAN AMERICAN 79 mL/min (90-120)
[2018-07-02 04:48] LABS: UREA NITROGEN 24 mg/dL (7-18)
[2018-07-02 08:17] VITALS: BP 129/93
[2018-07-02 12:30] VITALS: BP 121/74
[2018-07-02 16:20] VITALS: BP 126/80
[2018-07-02 21:34] VITALS: BP 140/78
[2018-07-03 00:44] VITALS: BP 191/77
[2018-07-03 01:24] VITALS: BP 151/78
[2018-07-03 04:41] LABS: BASOPHILS 0 % (0-2); EOSINOPHILS 0.1 % (0-7); HEMATOCRIT 36.2 % (36.0-48.0); HEMOGLOBIN 11.1 g/dL (12-16); IMMATURE GRANULOCYTES 1.1 % (0-5); LYMPHOCYTES 15.5 % (15-50); MCH 27.2 pg (26.0-34.0); MCHC 30.7 g/dL (31.0-37.0); MCV 88.7 fL (80.0-100.0); MEAN PLATELET VOLUME 11.3 fL (7.4-10.4); MONOCYTES 8.5 % (2-11); NEUTROPHILS 74.8 % (40-80); PLATELET COUNT 188 10x3/uL (130-400); RBC 4.08 10x6/uL (4.00-5.40); RDW 15.4 % (11.5-14.5)
[2018-07-03 04:49] LABS: WBC 11.8 10x3/uL (4.8-10.8)
[2018-07-03 04:58] LABS: ALBUMIN 2.7 g/dL (3.4-5.0); ALKALINE PHOSPHATASE 74 U/L (46-116); BILIRUBIN - TOTAL 0.21 mg/dL (0.2-1.3); CALCIUM 8.6 mg/dL (8.5-10.1); CARBON DIOXIDE 27.1 mmol/L (21.0-32.0); CHLORIDE - SERUM 104 mmol/L (98-107); CREATININE - SERUM 0.8 mg/dL (0.6-1.3); POTASSIUM - SERUM 4.3 mmol/L (3.5-5.1); PROTEIN - SERUM 6.4 g/dL (6.4-8.2); SODIUM 139 mmol/L (136-145); UREA NITROGEN 24 mg/dL (7-18); eGFR NON AFRICAN AMERICAN 79 mL/min (90-120)
[2018-07-03 05:02] LABS: ALT (SGPT) 28 U/L (10-68); CALC OSMOLALITY 288 mosm/kg (275-300); GLUCOSE 217 mg/dL (74-106)
[2018-07-03 05:10] VITALS: BP 180/74
[2018-07-03 08:48] VITALS: BP 130/72
[2018-07-03] MEDS ORDERED: TESSALON PERLE100 MG PO (11:13)
[2018-07-03] MEDS ORDERED: BROVANA15 MCG/2 M INH (11:13)
[2018-07-03] MEDS ORDERED: COLACE100 MG PO (11:13)
[2018-07-03] MEDS ORDERED: MUCINEX DM ER1 EAC1 PO (11:13)
[2018-07-03] MEDS ORDERED: LEVAQUIN750 MG PO (11:14)
[2018-07-03] MEDS ORDERED: PREDNISONE10 MG PO (11:14)
[2018-07-03 12:45] VITALS: BP 153/85
== END 2018-07-03 15:12 | disposition short-term general hospital (02) | DRG 189 ==
LOC: D.ER 00:07 → D.MS 01:39
PROVIDERS: Emergency Medicine; Family Medicine
DX: J96.01 Acute respiratory failure with hypoxia (principal); J44.0 Chronic obstructive pulmonary disease with (acute) lower respiratory infection; Z68.43 Body mass index [BMI] 50.0-59.9, adult; E11.65 Type 2 diabetes mellitus with hyperglycemia; E66.01 Morbid (severe) obesity due to excess calories; F25.9 Schizoaffective disorder, unspecified; J20.9 Acute bronchitis, unspecified

== ENCOUNTER 2018-07-04 00:36 | Inpatient (IN) | payer MEDICARE ==
[~2018-07-04] VITALS: Ht 157.5 cm; Wt 125.5 kg
[2018-07-04] VITALS (26 sets, daily range): BP systolic 92–200; BP diastolic 57–121; BMI 55.1; BMI 55.0
[~2018-07-04 00:36] MED LIST changes: +BROVANA15 MCG/2 M INH; +COLACE100 MG PO; +LEVAQUIN750 MG PO; +LISINOPRIL5 MG PO; +LYRICA100 MG PO; +MUCINEX DM ER1 EAC1 PO
[2018-07-04 01:18] LABS: HEMATOCRIT 45.2 % (36.0-48.0); HEMOGLOBIN 13.8 g/dL (12-16); MCH 27.7 pg (26.0-34.0); MCHC 30.5 g/dL (31.0-37.0); MCV 90.8 fL (80.0-100.0); MEAN PLATELET VOLUME 11.2 fL (7.4-10.4); PLATELET COUNT 286 10x3/uL (130-400); RBC 4.98 10x6/uL (4.00-5.40); RDW 15.3 % (11.5-14.5); WBC 25.6 10x3/uL (4.8-10.8)
[2018-07-04 01:34] LABS: ALBUMIN 3.3 g/dL (3.4-5.0); ALKALINE PHOSPHATASE 125 U/L (46-116); ALT (SGPT) 59 U/L (10-68); BILIRUBIN - TOTAL 0.15 mg/dL (0.2-1.3); CALC OSMOLALITY 293 mosm/kg (275-300); CALCIUM 8.8 mg/dL (8.5-10.1); CARBON DIOXIDE 28.5 mmol/L (21.0-32.0); CHLORIDE - SERUM 103 mmol/L (98-107); CKMB 2.4 U/L (0.0-3.6); GLUCOSE 305 mg/dL (74-106); POTASSIUM - SERUM 4.9 mmol/L (3.5-5.1); PRO BNP 306 pg/mL (0-125); PROTEIN - SERUM 7.9 g/dL (6.4-8.2); SODIUM 140 mmol/L (136-145); TROPONIN-I 0.022 ng/mL (0.000-0.060); UREA NITROGEN 24 mg/dL (7-18); eGFR NON AFRICAN AMERICAN 61 mL/min (90-120)
[2018-07-04 01:40] LABS: APPEARANCE CLEAR (CLEAR); COLOR YELLOW (YELLOW); GLUCOSE 50 mg/dL (NEGATIVE); KETONE NEGATIVE (NEGATIVE); NITRITE NEGATIVE (NEGATIVE); PROTEIN NEGATIVE (NEGATIVE); SPECIFIC GRAVITY 1.015 (1.005-1.020)
[2018-07-04 01:41] LABS: BILIRUBIN NEGATIVE (NEGATIVE); UROBILINOGEN NORMAL (NORMAL)
[2018-07-04 01:48] LABS: BASOPHILS 8 % (0-2); EOSINOPHILS 2 % (0-7); LYMPHOCYTES 39 % (15-50); MONOCYTES 4 % (2-11); NEUTROPHILS 47 % (40-80); PLATELET ESTIMATE NORMAL
[2018-07-05] VITALS (24 sets, daily range): BP systolic 96–166; BP diastolic 54–109; Ht 157.5 cm; Wt 125.5 kg
[2018-07-05 04:10] LABS: BASOPHILS 0.2 % (0-2); EOSINOPHILS 0.3 % (0-7); HEMATOCRIT 35.6 % (36.0-48.0); HEMOGLOBIN 11.1 g/dL (12-16); LYMPHOCYTES 7.4 % (15-50); MCH 28.2 pg (26.0-34.0); MCHC 31.2 g/dL (31.0-37.0); MCV 90.6 fL (80.0-100.0); MEAN PLATELET VOLUME 11.5 fL (7.4-10.4); MONOCYTES 5.9 % (2-11); NEUTROPHILS 84.2 % (40-80); PLATELET COUNT 152 10x3/uL (130-400); RBC 3.93 10x6/uL (4.00-5.40); RDW 15.3 % (11.5-14.5); WBC 11.3 10x3/uL (4.8-10.8)
[2018-07-05 04:18] LABS: CALC OSMOLALITY 283 mosm/kg (275-300); CALCIUM 8.1 mg/dL (8.5-10.1); CHLORIDE - SERUM 102 mmol/L (98-107); CREATININE - SERUM 0.8 mg/dL (0.6-1.3); GLUCOSE 325 mg/dL (74-106); POTASSIUM - SERUM 5.2 mmol/L (3.5-5.1); SODIUM 134 mmol/L (136-145); UREA NITROGEN 21 mg/dL (7-18); eGFR NON AFRICAN AMERICAN 79 mL/min (90-120)
[2018-07-06] VITALS (16 sets, daily range): BP systolic 131–176; BP diastolic 78–99
[2018-07-06 07:58] LABS: BASOPHILS 0.1 % (0-2); EOSINOPHILS 0.1 % (0-7); HEMATOCRIT 36.9 % (36.0-48.0); HEMOGLOBIN 12.1 g/dL (12-16); IMMATURE GRANULOCYTES 2.3 % (0-5); MCH 28.1 pg (26.0-34.0); MCHC 32.8 g/dL (31.0-37.0); MONOCYTES 5.3 % (2-11); NEUTROPHILS 81.2 % (40-80); PLATELET COUNT 168 10x3/uL (130-400); RDW 15.3 % (11.5-14.5)
[2018-07-06 08:00] LABS: MCV 85.8 fL (80.0-100.0); WBC 15.9 10x3/uL (4.8-10.8)
[2018-07-06 08:19] LABS: CALC OSMOLALITY 297 mosm/kg (275-300); CALCIUM 8.9 mg/dL (8.5-10.1); CARBON DIOXIDE 28.6 mmol/L (21.0-32.0); CHLORIDE - SERUM 106 mmol/L (98-107); CREATININE - SERUM 0.8 mg/dL (0.6-1.3); GLUCOSE 303 mg/dL (74-106); POTASSIUM - SERUM 4.7 mmol/L (3.5-5.1); SODIUM 143 mmol/L (136-145); UREA NITROGEN 18 mg/dL (7-18); eGFR NON AFRICAN AMERICAN 79 mL/min (90-120)
[2018-07-07] VITALS: BP 174/99
[2018-07-07 04:00] VITALS: BP 184/74
[2018-07-07 06:39] LABS: BASOPHILS 0.1 % (0-2); EOSINOPHILS 0.4 % (0-7); HEMATOCRIT 36.8 % (36.0-48.0); HEMOGLOBIN 11.7 g/dL (12-16); IMMATURE GRANULOCYTES 4.8 % (0-5); LYMPHOCYTES 22.3 % (15-50); MCH 28.2 pg (26.0-34.0); MCHC 31.8 g/dL (31.0-37.0); MEAN PLATELET VOLUME 11.1 fL (7.4-10.4); MONOCYTES 9.1 % (2-11); NEUTROPHILS 63.3 % (40-80); PLATELET COUNT 166 10x3/uL (130-400); RBC 4.15 10x6/uL (4.00-5.40); RDW 15.8 % (11.5-14.5); WBC 14.9 10x3/uL (4.8-10.8)
[2018-07-07 06:42] LABS: CALC OSMOLALITY 299 mosm/kg (275-300); CALCIUM 9.2 mg/dL (8.5-10.1); CARBON DIOXIDE 30.4 mmol/L (21.0-32.0); CHLORIDE - SERUM 107 mmol/L (98-107); CREATININE - SERUM 0.8 mg/dL (0.6-1.3); GLUCOSE 312 mg/dL (74-106); SODIUM 143 mmol/L (136-145); UREA NITROGEN 21 mg/dL (7-18); eGFR NON AFRICAN AMERICAN 79 mL/min (90-120)
[2018-07-07 06:44] LABS: MCV 88.7 fL (80.0-100.0)
[2018-07-07 09:39] VITALS: BP 151/91
[2018-07-07 13:21] VITALS: BP 166/75
--- NOTE | 2018-07-07 15:15 | MORECARE ---
CASE MANAGEMENT DISCHARGE SUMMARY PATIENT: DARLINE HUDDLESTON UNIT: [id number] ADM DATE: 07/04/18 AGE: 53 : 65 SEX: F ROOM/BED: D.2235 AUTHOR: NATALIYA SIERRA PHYSICIAN: REFERRING PHYSICIAN: ALEXYS CRUZ MD DATE OF SERVICE: 07/07/18 Discharge Plan Patient Name: DARLINE HUDDLESTON [facility] [facility] 1965 Planned Disposition: Home with Home Health Anticipated Discharge Date: Discharge Date: Expected LOS: Initial Reviewer: [email or web address] Initial Review Date: 07/07/2018 Generated: 07/07/18 4:15 pm DCPIA - Discharge Planning Initial Assessment Updated by [email or web address]: Yomaira Lenz on 07/07/18 3:13 pm * Is the patient Alert and Oriented? Yes * How many steps to enter\exit or inside your home? 5/0 * PCP Lisa Glass APN with Dr. Ayesha Burdick * Pharmacy [facility] on [address] * Preadmission Environment Home Alone * ADLs Independent * Equipment Grab Bars Nebulizer Other * Other Equipment Portable oxygen * List name and contact numbers for known caregivers / representatives who currently or will assist patient after discharge: Marisol Flower sister - [phone] [facility] - [phone] Devika Littlejohn [facility] - [phone] [facility] * Verbal permission to speak to the caregivers and representatives has been obtained from the patient. Yes * Community resources currently utilized None * Please name any agencies selected above. [facility] for portable oxygen * Additional services required to return to the preadmission environment? Yes * Can the patient safely return to the preadmission environment? Yes * Has this patient been hospitalized within the prior 30 days at any hospital? Yes Patient Name: DARLINE HUDDLESTON Page 12911 at 1516 All edits/amendments must be made on the electronic document DICTATION DATE: 07/07/18 1519 FURNACE COOLER: ESCOBAR 07/07/18 1513 RPT#: [id number] DC DATE: STATUS: ADM IN [facility] [address] [place] [address] END OF REPORT
--- NOTE | 2018-07-07 15:25 | MORECARE ---
CASE MANAGEMENT DISCHARGE SUMMARY PATIENT: DARLINE HUDDLESTON UNIT: [id number] ADM DATE: 07/04/18 AGE: 53 : 65 SEX: F ROOM/BED: D.6105 AUTHOR: NATALIYA SIERRA PHYSICIAN: REFERRING PHYSICIAN: ALEXYS CRUZ MD DATE OF SERVICE: 07/07/18 Discharge Plan Patient Name: DARLINE HUDDLESTON Facility: [facility]:[place] : 1965 Planned Disposition: Home with Home Health Anticipated Discharge Date: Discharge Date: Expected LOS: Initial Reviewer: [email or web address] Initial Review Date: 07/07/2018 Generated: 07/07/18 4:25 pm Comments DCP- Discharge Planning Updated by [email or web address]: Yomaira Lenz on 07/07/18 2:[address] Patient Name: DARLINE HUDDLESTON Admission Status: ER Accout number: [id number] Admission Date: 07-04-2018 : 1965 Admission Diagnosis:ACUTE RESPIRATORY FAILURE WITH HYPOXIA Attending: ALEXYS CRUZ Current LOS: 3 Anticipated DC Date: Planned Disposition: Home with Home Health Primary Insurance: MEDICARE A & B Discharge Planning Comments: CM met with patient and her family per request to discuss discharge planning. She was home from the hospital for 6 hours before returning with respiratory failure. She states she has CPAP and portable oxygen from [employer]. States will use [facility] for oxygen needs. She states she may need a BIPAP or Trilogy. I called [employer], but they are closed for the day. I will call back on Saturday once order is received for Trilogy or BIPAP. Patient states she will use another company if needed for Trilogy. She asked for information on POA, I gave her an Advanced Directive packet with the number to HIM for notary if needed. Life Alert information with number provided. I told her to check with [facility] about applying for HUD housing. Family in the room states they will get the application for her. Her sister asked if she could have dietary counseling and patient agrees. Dietary consult ordered. I will continue to follow along and order Trilogy or BIPAP if needed. She will also need a walk test for oxygen (she already has portable oxygen from [employer]). Cm will continue to follow and assist with discharge planning/needs. Animal Trapper: Yomaira Lenz DCPIA - Discharge Planning Initial Assessment Updated by [email or web address]: Yomaira Delfin on 07/07/18 3:13 pm * Is the patient Alert and Oriented? Yes * How many steps to enter\\exit or inside your home? 5/0 * PCP Lisa Glass APN with Dr. Ayesha Burdick * Pharmacy [facility] on [address] * Preadmission Environment Home Alone * ADLs Independent * Equipment Grab Bars Nebulizer Other * Other Equipment Portable oxygen * List name and contact numbers for known caregivers / representatives who currently or will assist patient after discharge: Marisol Flower sister - [phone] [place] Chris - sister - [phone] Devika Littlejohn mother - [phone] [facility] * Verbal permission to speak to the caregivers and representatives has been obtained from the patient. Yes * Community resources currently utilized None * Please name any agencies selected above. [facility] for portable oxygen * Additional services required to return to the preadmission environment? Yes * Can the patient safely return to the preadmission environment? Yes * Has this patient been hospitalized within the prior 30 days at any hospital? Yes Last DP export: 07/07/18 2:15 Patient Name: DARLINE HUDDLESTON Page 91439 at 1525 All edits/amendments must be made on the electronic document DICTATION DATE: 07/07/181524 PBX INSPECTOR: ESCOBAR 07/07/181524 RPT#: [id number] DC DATE: STATUS: ADM IN [facility] [address] [place] [address] END OF REPORT
[2018-07-07 17:20] VITALS: BP 168/95
[2018-07-08 00:08] VITALS: BP 177/76
[2018-07-08 04:22] VITALS: BP 171/89
[2018-07-08 07:23] LABS: BASOPHILS 0.1 % (0-2); EOSINOPHILS 0.1 % (0-7); HEMATOCRIT 35.8 % (36.0-48.0); HEMOGLOBIN 11.1 g/dL (12-16); MCH 27.5 pg (26.0-34.0); MCV 88.8 fL (80.0-100.0); MEAN PLATELET VOLUME 11.3 fL (7.4-10.4); MONOCYTES 8.7 % (2-11); NEUTROPHILS 69.1 % (40-80); PLATELET COUNT 168 10x3/uL (130-400); RBC 4.03 10x6/uL (4.00-5.40); RDW 15.4 % (11.5-14.5); WBC 15.2 10x3/uL (4.8-10.8)
[2018-07-08 07:43] LABS: CARBON DIOXIDE 27.5 mmol/L (21.0-32.0); CREATININE - SERUM 0.9 mg/dL (0.6-1.3); POTASSIUM - SERUM 4.5 mmol/L (3.5-5.1)
[2018-07-08 08:40] VITALS: BP 181/94
[2018-07-08 12:40] VITALS: BP 161/98
[2018-07-08 16:00] VITALS: BP 138/61
[2018-07-08 20:00] VITALS: BP 115/58
[2018-07-09] VITALS: BP 161/84
[2018-07-09 04:00] VITALS: BP 144/66
[2018-07-09 05:57] LABS: HEMATOCRIT 40.3 % (36.0-48.0); HEMOGLOBIN 12.5 g/dL (12-16); MCH 27.7 pg (26.0-34.0); MCV 89.4 fL (80.0-100.0); MEAN PLATELET VOLUME 11.1 fL (7.4-10.4); PLATELET COUNT 150 10x3/uL (130-400); RBC 4.51 10x6/uL (4.00-5.40); RDW 15.2 % (11.5-14.5); WBC 16.1 10x3/uL (4.8-10.8)
[2018-07-09 06:59] LABS: CALC OSMOLALITY 296 mosm/kg (275-300); CARBON DIOXIDE 29.4 mmol/L (21.0-32.0); CHLORIDE - SERUM 102 mmol/L (98-107); CREATININE - SERUM 0.8 mg/dL (0.6-1.3); GLUCOSE 364 mg/dL (74-106); POTASSIUM - SERUM 4.7 mmol/L (3.5-5.1); SODIUM 139 mmol/L (136-145); UREA NITROGEN 25 mg/dL (7-18); eGFR NON AFRICAN AMERICAN 79 mL/min (90-120)
[2018-07-09 08:09] LABS: ANISOCYTOSIS OCC; LYMPHOCYTES 20 % (15-50); MONOCYTES 9 % (2-11); NEUTROPHILS 61 % (40-80); PLATELET ESTIMATE NORMAL
[2018-07-09 08:51] VITALS: BP 179/84
--- NOTE | 2018-07-09 10:39 | MORECARE ---
CASE MANAGEMENT DISCHARGE SUMMARY PATIENT: DARLINE HUDDLESTON UNIT: [id number] ADM DATE: 07/04/18 AGE: 53 : 65 SEX: F ROOM/BED: D.2235 AUTHOR: NATALIYA SIERRA PHYSICIAN: REFERRING PHYSICIAN: ALEXYS CRUZ MD DATE OF SERVICE: 07/09/18 Discharge Plan Patient Name: DARLINE HUDDLESTON Facility: [facility]:[place] : 1965 Planned Disposition: Home with Home Health Anticipated Discharge Date: Discharge Date: Expected LOS: Initial Reviewer: [email or web address] Initial Review Date: 07/07/2018 Generated: 07/09/18 11:39 am Comments DCP- Discharge Planning Updated by [id number]: Yomaira Lenz on 07/09/18 9:[address] Spoke with Callie, they will be her oxygen provider and will call if they need clinical sent. I spoke with Darlene with [employer] and she will be here today for Trilogy ([facility] does not supply Trilogy). Clinical faxed to [employer]. CM will continue to follow and assist with discharge planning/needs. DCP- Discharge Planning Updated by [email or web address]: Yomaira Lenz on 07/07/18 2:[address] Patient Name: DARLINE HUDDLESTON Admission Status: ER Accout number: [id number] Admission Date: 07-04-2018 : 1965 Admission Diagnosis:ACUTE RESPIRATORY FAILURE WITH HYPOXIA Attending: ALEXYS CRUZ Current LOS: 3 Anticipated DC Date: Planned Disposition: Home with Home Health Primary Insurance: MEDICARE A & B Discharge Planning Comments: CM met with patient and her family per request to discuss discharge planning. She was home from the hospital for 6 hours before returning with respiratory failure. She states she has CPAP and portable oxygen from [employer]. States will use [employer] for oxygen needs. She states she may need a BIPAP or Trilogy. I called [employer], but they are closed for the day. I will call back on Saturday once order is received for Trilogy or BIPAP. Patient states she will use another company if needed for Trilogy. She asked for information on POA, I gave her an Advanced Directive packet with the number to HIM for notary if needed. Life Alert information with number provided. I told her to check with [facility] about applying for HUD housing. Family in the room states they will get the application for her. Her sister asked if she could have dietary counseling and patient agrees. Dietary consult ordered. I will continue to follow along and order Trilogy or BIPAP if needed. She will also need a walk test for oxygen (she already has portable oxygen from [employer]). Cm will continue to follow and assist with discharge planning/needs. Classifying Machine Operator: Yomaira Delfin DCPIA - Discharge Planning Initial Assessment Updated by [id number]: Yomaira Delfin on 07/07/18 3:13 pm * Is the patient Alert and Oriented? Yes * How many steps to enter\\exit or inside your home? 5/0 * PCP Lisa Glass APN with Dr. Ayesha Burdick * Pharmacy [facility] on [address] * Preadmission Environment Home Alone * ADLs Independent * Equipment Grab Bars Nebulizer Other * Other Equipment Portable oxygen * List name and contact numbers for known caregivers / representatives who currently or will assist patient after discharge: Marisol Flower - sister - [phone] Sandra Chris - sister - [phone] Devika Littlejohn - mother - [phone] [facility] * Verbal permission to speak to the caregivers and representatives has been obtained from the patient. Yes * Community resources currently utilized None * Please name any agencies selected above. [facility] for portable oxygen * Additional services required to return to the preadmission environment? Yes * Can the patient safely return to the preadmission environment? Yes * Has this patient been hospitalized within the prior 30 days at any hospital? Yes External Providers External Provider: [facility] Next Contact Date: Service Request Date: Service Type: Resolution: Reviewer: Comments: Last DP export: 07/07/18 2:25 Patient Name: DARLINE HUDDLESTON Page 36641 at 1039 All edits/amendments must be made on the electronic document DICTATION DATE: 07/09/18 1038 DOOR MACHINE OPERATOR: ESCOBAR 07/09/18 1038 RPT#: [id number] DC DATE: STATUS: ADM IN [facility] [address] [place] [address] END OF REPORT
--- NOTE | 2018-07-09 13:03 | MORECARE ---
CASE MANAGEMENT DISCHARGE SUMMARY PATIENT: DARLINE HUDDLESTON UNIT: [id number] ADM DATE: 07/04/18 AGE: 53 : 65 SEX: F ROOM/BED: D.2235 AUTHOR: NATALIYA SIERRA PHYSICIAN: REFERRING PHYSICIAN: ALEXYS CRUZ MD DATE OF SERVICE: 07/09/18 Discharge Plan Patient Name: DARLINE HUDDLESTON Facility: [facility]:[place] : 1965 Planned Disposition: Home with Home Health Anticipated Discharge Date: Discharge Date: Expected LOS: Initial Reviewer: [id number] Initial Review Date: 07/07/2018 Generated: 07/09/18 2:02 pm Comments DCP- Discharge Planning Updated by [email or web address]: Yomaira Lenz on 07/09/18 9:[address] Spoke with Callie, they will be her oxygen provider and will call if they need clinical sent. I spoke with Darlene with [employer] and she will be here today for Trilogy ([employer] does not supply Trilogy). Clinical faxed to [employer]. CM will continue to follow and assist with discharge planning/needs. DCP- Discharge Planning Updated by [email or web address]: Yomaira Lenz on 07/07/18 2:[address] Patient Name: DARLINE HUDDLESTON Admission Status: ER Accout number: [id number] Admission Date: 07-04-2018 : 1965 Admission Diagnosis:ACUTE RESPIRATORY FAILURE WITH HYPOXIA Attending: ALEXYS CRUZ Current LOS: 3 Anticipated DC Date: Planned Disposition: Home with Home Health Primary Insurance: MEDICARE A & B Discharge Planning Comments: CM met with patient and her family per request to discuss discharge planning. She was home from the hospital for 6 hours before returning with respiratory failure. She states she has CPAP and portable oxygen from [employer]. States will use [facility] for oxygen needs. She states she may need a BIPAP or Trilogy. I called [employer], but they are closed for the day. I will call back on Saturday once order is received for Trilogy or BIPAP. Patient states she will use another company if needed for Trilogy. She asked for information on POA, I gave her an Advanced Directive packet with the number to HIM for notary if needed. Life Alert information with number provided. I told her to check with [facility] about applying for HUD housing. Family in the room states they will get the application for her. Her sister asked if she could have dietary counseling and patient agrees. Dietary consult ordered. I will continue to follow along and order Trilogy or BIPAP if needed. She will also need a walk test for oxygen (she already has portable oxygen from [employer]). Cm will continue to follow and assist with discharge planning/needs. Relief Worker: Yomaira Mccartydamir DCPIA - Discharge Planning Initial Assessment Updated by [email or web address]: Yomaira Delfin on 07/07/18 3:13 pm * Is the patient Alert and Oriented? Yes * How many steps to enter\\exit or inside your home? 5/0 * PCP Lisa Glass APN with Dr. Ayesha Burdick * Pharmacy [facility] on [address] * Preadmission Environment Home Alone * ADLs Independent * Equipment Grab Bars Nebulizer Other * Other Equipment Portable oxygen * List name and contact numbers for known caregivers / representatives who currently or will assist patient after discharge: Marisol Flower - sister - [phone] [place] Chris - sister - [phone] Devika Littlejohn - mother - [phone] [facility] * Verbal permission to speak to the caregivers and representatives has been obtained from the patient. Yes * Community resources currently utilized None * Please name any agencies selected above. [facility] for portable oxygen * Additional services required to return to the preadmission environment? Yes * Can the patient safely return to the preadmission environment? Yes * Has this patient been hospitalized within the prior 30 days at any hospital? Yes External Providers External Provider: [facility] Next Contact Date: Service Request Date: Service Type: Resolution: Reviewer: Comments: External Provider: [facility] Next Contact Date: Service Request Date: Service Type: Resolution: Reviewer: Comments: Last DP export: 07/09/18 9:39 am Patient Name: DARLINE HUDDLESTON Page [id number] at 1303 All edits/amendments must be made on the electronic document DICTATION DATE: 07/09/18 1302 OSTRICH FARM WORKER: DM 07/09/18 1302 RPT#: [id number] DC DATE: STATUS: ADM IN [facility] [address] [place] [address] END OF REPORT
--- NOTE | 2018-07-09 13:20 | MORECARE ---
CASE MANAGEMENT DISCHARGE SUMMARY PATIENT: DARLINE HUDDLESTON UNIT: [id number] ADM DATE: 07/04/18 AGE: 53 : 65 SEX: F ROOM/BED: D.2235 AUTHOR: NATALIYA SIERRA PHYSICIAN: REFERRING PHYSICIAN: ALEXYS CRUZ MD DATE OF SERVICE: 07/09/18 Discharge Plan Patient Name: DARLINE HUDDLESTON Facility: [facility]:[place] : 1965 Planned Disposition: Home with Home Health Anticipated Discharge Date: Discharge Date: Expected LOS: Initial Reviewer: [email or web address] Initial Review Date: 07/07/2018 Generated: 07/09/18 2:20 pm Comments DCP- Discharge Planning Updated by [id number]: Yomaira Delfin on 07/09/18 12:[address] Spoke with patient and she is wanting information on personal care. I called [facility] and asked if Echo could see the patient and fill out an application for personal care. Echo will see her tomorrow. I called [facility] and set up home health for when patient is discharged. They will see her Saturday if she is discharged by then, I spoke with Angela. CM will continue to follow and assist with discharge planning/needs. DCP- Discharge Planning Updated by [id number]: Yomaira Delfin on 07/09/18 9:[address] Spoke with [facility], they will be her oxygen provider and will call if they need clinical sent. I spoke with Darlene with [facility] and she will be here today for Trilogy ([facility] does not supply Trilogy). Clinical faxed to [facility]. CM will continue to follow and assist with discharge planning/needs. DCP- Discharge Planning Updated by [id number]: Yomaira Delfin on 07/07/18 2:[address] Patient Name: DARLINE HUDDLESTON Admission Status: ER Accout number: [id number] Admission Date: 07-04-2018 : 1965 Admission Diagnosis:ACUTE RESPIRATORY FAILURE WITH HYPOXIA Attending: ALEXYS CRUZ Current LOS: 3 Anticipated DC Date: Planned Disposition: Home with Home Health Primary Insurance: MEDICARE A & B Discharge Planning Comments: CM met with patient and her family per request to discuss discharge planning. She was home from the hospital for 6 hours before returning with respiratory failure. She states she has CPAP and portable oxygen from [facility]. States will use [facility] for oxygen needs. She states she may need a BIPAP or Trilogy. I called [employer], but they are closed for the day. I will call back on Saturday once order is received for Trilogy or BIPAP. Patient states she will use another company if needed for Trilogy. She asked for information on POA, I gave her an Advanced Directive packet with the number to HIM for notary if needed. Life Alert information with number provided. I told her to check with [facility] about applying for HUD housing. Family in the room states they will get the application for her. Her sister asked if she could have dietary counseling and patient agrees. Dietary consult ordered. I will continue to follow along and order Trilogy or BIPAP if needed. She will also need a walk test for oxygen (she already has portable oxygen from [employer]). Cm will continue to follow and assist with discharge planning/needs. Sap Basis: Yomaira Lenz DCPIA - Discharge Planning Initial Assessment Updated by [email or web address]: Yomaira Lenz on 07/07/18 3:13 pm * Is the patient Alert and Oriented? Yes * How many steps to enter\\exit or inside your home? 5/0 * PCP Lisa Glass APN with Dr. Ayesha Burdick * Pharmacy [facility] on [address] * Preadmission Environment Home Alone * ADLs Independent * Equipment Grab Bars Nebulizer Other * Other Equipment Portable oxygen * List name and contact numbers for known caregivers / representatives who currently or will assist patient after discharge: Marisol Flower - sister - [phone] [place] Chris - sister - [phone] Devika Littlejohn - mother - [phone] [facility] Chris [facility] * Verbal permission to speak to the caregivers and representatives has been obtained from the patient. Yes * Community resources currently utilized None * Please name any agencies selected above. [facility] for portable oxygen * Additional services required to return to the preadmission environment? Yes * Can the patient safely return to the preadmission environment? Yes * Has this patient been hospitalized within the prior 30 days at any hospital? Yes External Providers External Provider: [facility] Next Contact Date: Service Request Date: Service Type: Resolution: Reviewer: Comments: Last DP export: 07/09/18 12:03 pm Patient Name: DARLINE HUDDLESTON Page [id number] at 1320 All edits/amendments must be made on the electronic document DICTATION DATE: 07/09/18 1320 GYROSCOPE REPAIRER: ESCOBAR 07/09/18 1320 RPT#: [id number] DC DATE: STATUS: ADM IN [facility] [address] [place] [address] END OF REPORT
[2018-07-09 16:00] VITALS: BP 135/63
[2018-07-09 21:55] VITALS: BP 147/80
[2018-07-10 02:09] VITALS: BP 152/79
[2018-07-10 06:34] LABS: BASOPHILS 0.2 % (0-2); EOSINOPHILS 0.1 % (0-7); HEMATOCRIT 35.4 % (36.0-48.0); HEMOGLOBIN 11.2 g/dL (12-16); IMMATURE GRANULOCYTES 5.1 % (0-5); LYMPHOCYTES 15.7 % (15-50); MCH 27.8 pg (26.0-34.0); MCHC 31.6 g/dL (31.0-37.0); MCV 87.8 fL (80.0-100.0); MONOCYTES 7.3 % (2-11); NEUTROPHILS 71.6 % (40-80); PLATELET COUNT 133 10x3/uL (130-400); RBC 4.03 10x6/uL (4.00-5.40); RDW 15.1 % (11.5-14.5); WBC 18.2 10x3/uL (4.8-10.8)
[2018-07-10 06:48] LABS: CALC OSMOLALITY 291 mosm/kg (275-300); CALCIUM 8.7 mg/dL (8.5-10.1); CARBON DIOXIDE 29.6 mmol/L (21.0-32.0); CHLORIDE - SERUM 103 mmol/L (98-107); CREATININE - SERUM 0.7 mg/dL (0.6-1.3); GLUCOSE 277 mg/dL (74-106); POTASSIUM - SERUM 4.2 mmol/L (3.5-5.1); SODIUM 140 mmol/L (136-145); UREA NITROGEN 22 mg/dL (7-18); eGFR NON AFRICAN AMERICAN > 90 mL/min (90-120)
[2018-07-10 08:10] VITALS: BP 142/83
--- NOTE | 2018-07-10 12:14 | MORECARE ---
CASE MANAGEMENT DISCHARGE SUMMARY PATIENT: DARLINE HUDDLESTON UNIT: [id number] ADM DATE: 07/04/18 AGE: 53 : 65 SEX: F ROOM/BED: D.2235 AUTHOR: NATALIYA SIERRA PHYSICIAN: REFERRING PHYSICIAN: ALEXYS CRUZ MD DATE OF SERVICE: 07/10/18 Discharge Plan Patient Name: DARLINE HUDDLESTON Facility: [facility]:[place] : 1965 Planned Disposition: Home with Home Health Anticipated Discharge Date: Discharge Date: Expected LOS: Initial Reviewer: [email or web address] Initial Review Date: 07/07/2018 Generated: 07/10/18 1:14 pm Comments DCP- Discharge Planning Updated by [email or web address]: Yomaira Lenz on 07/10/18 11:[address] Faxed signed order for oxygen to [facility]. Spoke with Darlene with [employer] and she will be out today with the Trilogy. Echo with [facility] is here assisting with application for personal care. CM will continue to follow and assist with discharge planning/needs. DCP- Discharge Planning Updated by [email or web address]: Yomaira Lenz on 07/09/18 12:[address] Spoke with patient and she is wanting information on personal care. I called [facility] and asked if Echo could see the patient and fill out an application for personal care. Echo will see her tomorrow. I called [facility] and set up home health for when patient is discharged. They will see her Saturday if she is discharged by then, I spoke with Angela. CM will continue to follow and assist with discharge planning/needs. DCP- Discharge Planning Updated by [email or web address]: Yomaira Lenz on 07/09/18 9:[address] Spoke with Callie, they will be her oxygen provider and will call if they need clinical sent. I spoke with Darlene with [facility] and she will be here today for Trilogy ([facility] does not supply Trilogy). Clinical faxed to [facility] [employer]. CM will continue to follow and assist with discharge planning/needs. DCP- Discharge Planning Updated by [email or web address]: Yomaira Lenz on 07/07/18 2:[address] Patient Name: DARLINE HUDDLESTON Admission Status: ER Accout number: [id number] Admission Date: 07-04-2018 : 1965 Admission Diagnosis:ACUTE RESPIRATORY FAILURE WITH HYPOXIA Attending: ALEXYS CRUZ Current LOS: 3 Anticipated DC Date: Planned Disposition: Home with Home Health Primary Insurance: MEDICARE A & B Discharge Planning Comments: CM met with patient and her family per request to discuss discharge planning. She was home from the hospital for 6 hours before returning with respiratory failure. She states she has CPAP and portable oxygen from [employer]. States will use [facility] for oxygen needs. She states she may need a BIPAP or Trilogy. I called [facility], but they are closed for the day. I will call back on Saturday once order is received for Trilogy or BIPAP. Patient states she will use another company if needed for Trilogy. She asked for information on POA, I gave her an Advanced Directive packet with the number to HIM for notary if needed. Life Alert information with number provided. I told her to check with [facility] about applying for HUD housing. Family in the room states they will get the application for her. Her sister asked if she could have dietary counseling and patient agrees. Dietary consult ordered. I will continue to follow along and order Trilogy or BIPAP if needed. She will also need a walk test for oxygen (she already has portable oxygen from [employer]). Cm will continue to follow and assist with discharge planning/needs. Corporate Development Associate: Yomaira Lenz DCPIA - Discharge Planning Initial Assessment Updated by [id number]: Yomaira Lenz on 07/07/18 3:13 pm * Is the patient Alert and Oriented? Yes * How many steps to enter\\exit or inside your home? 5/0 * PCP Lisa Glass APN with Dr. Ayesha Burdick * Pharmacy [facility] on [address] * Preadmission Environment Home Alone * ADLs Independent * Equipment Grab Bars Nebulizer Other * Other Equipment Portable oxygen * List name and contact numbers for known caregivers / representatives who currently or will assist patient after discharge: Marisol Flower - sister - [phone] [place] Chris - sister - [phone] Devika Littlejohn - mother - [phone] Bill Chris - IG[employer] * Verbal permission to speak to the caregivers and representatives has been obtained from the patient. Yes * Community resources currently utilized None * Please name any agencies selected above. [facility] for portable oxygen * Additional services required to return to the preadmission environment? Yes * Can the patient safely return to the preadmission environment? Yes * Has this patient been hospitalized within the prior 30 days at any hospital? Yes Last DP export: 07/09/18 12:20 pm Patient Name: DARLINE HUDDLESTON Page 26782 at 1214 All edits/amendments must be made on the electronic document DICTATION DATE: 07/10/18 1213 COMPLIANCE AIDE: ESCOBAR 07/10/18 1213 RPT#: [id number] DC DATE: STATUS: ADM IN [facility] [address] [place] [address] END OF REPORT
[2018-07-10 12:16] VITALS: BP 148/80
[2018-07-10 16:09] VITALS: BP 126/57
[2018-07-10 20:00] VITALS: BP 148/63
[2018-07-11] VITALS: BP 124/79
[2018-07-11 04:00] VITALS: BP 182/93
[2018-07-11 07:50] LABS: BASOPHILS 0.2 % (0-2); EOSINOPHILS 0.2 % (0-7); HEMATOCRIT 36.2 % (36.0-48.0); HEMOGLOBIN 11.2 g/dL (12-16); IMMATURE GRANULOCYTES 4.5 % (0-5); LYMPHOCYTES 15.7 % (15-50); MCH 27.7 pg (26.0-34.0); MCHC 30.9 g/dL (31.0-37.0); MCV 89.6 fL (80.0-100.0); MEAN PLATELET VOLUME 11.9 fL (7.4-10.4); MONOCYTES 6.6 % (2-11); NEUTROPHILS 72.8 % (40-80); PLATELET COUNT 133 10x3/uL (130-400); RBC 4.04 10x6/uL (4.00-5.40); RDW 15.1 % (11.5-14.5); WBC 18.8 10x3/uL (4.8-10.8)
[2018-07-11 08:32] LABS: CALC OSMOLALITY 294 mosm/kg (275-300); CALCIUM 8.7 mg/dL (8.5-10.1); CARBON DIOXIDE 29.5 mmol/L (21.0-32.0); CHLORIDE - SERUM 102 mmol/L (98-107); CREATININE - SERUM 0.8 mg/dL (0.6-1.3); GLUCOSE 279 mg/dL (74-106); SODIUM 141 mmol/L (136-145); UREA NITROGEN 23 mg/dL (7-18); eGFR NON AFRICAN AMERICAN 79 mL/min (90-120)
--- NOTE | 2018-07-11 10:26 | MORECARE ---
CASE MANAGEMENT DISCHARGE SUMMARY PATIENT: DARLINE HUDDLESTON UNIT: [id number] ADM DATE: 07/04/18 AGE: 53 : 65 SEX: F ROOM/BED: D.2235 AUTHOR: RIGO,DOC PHYSICIAN: REFERRING PHYSICIAN: ALEXYS CRUZ MD DATE OF SERVICE: 07/11/18 Discharge Plan Patient Name: DARLINE HUDDLESTON Facility: [facility]:[place] : 1965 Planned Disposition: Home with Home Health Anticipated Discharge Date: Discharge Date: Expected LOS: Initial Reviewer: [email or web address] Initial Review Date: 07/07/2018 Generated: 07/11/18 11:26 am Comments DCP- Discharge Planning Updated by [id number]: Yomaira Lenz on 07/11/18 9:[address] Hutchinson stated she will not go home until Saturday. I called [facility] and informed them that she may not be discharging today. She did use her Trilogy last night and states she felt better this morning after wearing it. CM will continue to follow and assist with discharge planning/needs. DCP- Discharge Planning Updated by [id number]: Yomaira Lenz on 07/10/18 11:[address] Faxed signed order for oxygen to [facility]. Spoke with Darlene with [employer] and she will be out today with the Trilogy. Echo with [facility] is here assisting with application for personal care. CM will continue to follow and assist with discharge planning/needs. DCP- Discharge Planning Updated by [email or web address]: Yomaira Lenz on 07/09/18 12:[address] Spoke with patient and she is wanting information on personal care. I called [facility] and asked if Echo could see the patient and fill out an application for personal care. Echo will see her tomorrow. I called [facility] and set up home health for when patient is discharged. They will see her Saturday if she is discharged by then, I spoke with Angela. CM will continue to follow and assist with discharge planning/needs. DCP- Discharge Planning Updated by [email or web address]: Yomaira Lenz on 07/09/18 9:[address] Spoke with [facility], they will be her oxygen provider and will call if they need clinical sent. I spoke with Darlene with [facility] and she will be here today for Trilogy ([facility] does not supply Trilogy). Clinical faxed to [facility]. CM will continue to follow and assist with discharge planning/needs. DCP- Discharge Planning Updated by [email or web address]: Yomaira Delfin on 07/07/18 2:[address] Patient Name: DARLINE HUDDLESTON Admission Status: ER Accout number: [id number] Admission Date: 07-04-2018 : 1965 Admission Diagnosis:ACUTE RESPIRATORY FAILURE WITH HYPOXIA Attending: ALEXYS CRUZ Current LOS: 3 Anticipated DC Date: Planned Disposition: Home with Home Health Primary Insurance: MEDICARE A & B Discharge Planning Comments: CM met with patient and her family per request to discuss discharge planning. She was home from the hospital for 6 hours before returning with respiratory failure. She states she has CPAP and portable oxygen from [employer]. States will use [facility] for oxygen needs. She states she may need a BIPAP or Trilogy. I called [employer], but they are closed for the day. I will call back on Saturday once order is received for Trilogy or BIPAP. Patient states she will use another company if needed for Trilogy. She asked for information on POA, I gave her an Advanced Directive packet with the number to HIM for notary if needed. Life Alert information with number provided. I told her to check with [facility] about applying for HUD housing. Family in the room states they will get the application for her. Her sister asked if she could have dietary counseling and patient agrees. Dietary consult ordered. I will continue to follow along and order Trilogy or BIPAP if needed. She will also need a walk test for oxygen (she already has portable oxygen from [employer]). Cm will continue to follow and assist with discharge planning/needs. Finisher Accordion: Yomaira Delfin DCPIA - Discharge Planning Initial Assessment Updated by [email or web address]: Yomaira Delfin on 07/07/18 3:13 pm * Is the patient Alert and Oriented? Yes * How many steps to enter\\exit or inside your home? 5/0 * PCP Lisa Glass APN with Dr. Ayesha Burdick * Pharmacy [facility] on [address] * Preadmission Environment Home Alone * ADLs Independent * Equipment Grab Bars Nebulizer Other * Other Equipment Portable oxygen * List name and contact numbers for known caregivers / representatives who currently or will assist patient after discharge: Marisol Flower - sister - [phone] [place] Chris - sister - [phone] Devika Littlejohn - mother - [phone] Bill Chris - IGNACIO * Verbal permission to speak to the caregivers and representatives has been obtained from the patient. Yes * Community resources currently utilized None * Please name any agencies selected above. [facility] for portable oxygen * Additional services required to return to the preadmission environment? Yes * Can the patient safely return to the preadmission environment? Yes * Has this patient been hospitalized within the prior 30 days at any hospital? Yes Last DP export: 07/10/18 11:14 am Patient Name: DARLINE HUDDLESTON Page [id number] at 1026 All edits/amendments must be made on the electronic document DICTATION DATE: 07/11/18 1025 ELECTRICIAN CONTROL EQUIPMENT: ESCOBAR 07/11/18 1025 RPT#: [id number] DC DATE: STATUS: ADM IN [facility] [address] [place] [address] END OF REPORT
[2018-07-11 11:42] VITALS: BP 153/85
[2018-07-11 16:13] VITALS: BP 169/87
--- NOTE | 2018-07-11 16:27 | MORECARE ---
CASE MANAGEMENT DISCHARGE SUMMARY PATIENT: DARLINE HUDDLESTON UNIT: [id number] ADM DATE: 07/04/18 AGE: 53 : 65 SEX: F ROOM/BED: D.2235 AUTHOR: RIGO,DOC PHYSICIAN: REFERRING PHYSICIAN: ALEXYS CRUZ MD DATE OF SERVICE: 07/11/18 Discharge Plan Patient Name: DARLINE HUDDLESTON Facility: [facility]:[place] : 1965 Planned Disposition: Home with Home Health Anticipated Discharge Date: Discharge Date: Expected LOS: Initial Reviewer: [email or web address] Initial Review Date: 07/07/2018 Generated: 07/11/18 5:27 pm Comments DCP- Discharge Planning Updated by [id number]: Yomaira Lenz on 07/11/18 3:[address] I have faxed the walk test to [facility]. They will fax me an order for Dr. Calabrese to sign once they get his progress note on home oxygen. They are setting up her home oxygen at 1700 today. She already has her portable oxygen and her trilogy in the room. CM to fax Dr. Calabrese's signed order and progress note when it is received. Sneha at [facility] states we can do this post discharge since her oxygen will already be set up. CM to continue to follow and assist with discharge planning/needs. CM will need to fax [facility] the discharge summary. DCP- Discharge Planning Updated by [id number]: Yomaira Lenz on 07/11/18 9:[address]. Hutchinson stated she will not go home until Saturday. I called [facility] and informed them that she may not be discharging today. She did use her Trilogy last night and states she felt better this morning after wearing it. CM will continue to follow and assist with discharge planning/needs. DCP- Discharge Planning Updated by [email or web address]: Yomaira Lenz on 07/10/18 11:[address] Faxed signed order for oxygen to [facility]. Spoke with Darlene with [employer] and she will be out today with the Trilogy. Echo with [facility] [employer] is here assisting with application for personal care. CM will continue to follow and assist with discharge planning/needs. DCP- Discharge Planning Updated by [id number]: Yomaira Lenz on 07/09/18 12:[address] Spoke with patient and she is wanting information on personal care. I called [facility] and asked if Echo could see the patient and fill out an application for personal care. Echo will see her tomorrow. I called [facility] and set up home health for when patient is discharged. They will see her Saturday if she is discharged by then, I spoke with Angela. CM will continue to follow and assist with discharge planning/needs. DCP- Discharge Planning Updated by [id number]: Yomaira Lenz on 07/09/18 9:[address] Spoke with [facility], they will be her oxygen provider and will call if they need clinical sent. I spoke with Darlene with [employer] and she will be here today for Trilogy ([facility] does not supply Trilogy). Clinical faxed to [employer]. CM will continue to follow and assist with discharge planning/needs. DCP- Discharge Planning Updated by [id number]: Yomaira Lenz on 07/07/18 2:[address] Patient Name: DARLINE HUDDLESTON Admission Status: ER Accout number: [id number] Admission Date: 07-04-2018 : 1965 Admission Diagnosis:ACUTE RESPIRATORY FAILURE WITH HYPOXIA Attending: ALEXYS CRUZ Current LOS: 3 Anticipated DC Date: Planned Disposition: Home with Home Health Primary Insurance: MEDICARE A & B Discharge Planning Comments: CM met with patient and her family per request to discuss discharge planning. She was home from the hospital for 6 hours before returning with respiratory failure. She states she has CPAP and portable oxygen from [employer]. States will use [facility] for oxygen needs. She states she may need a BIPAP or Trilogy. I called [employer], but they are closed for the day. I will call back on Saturday once order is received for Trilogy or BIPAP. Patient states she will use another company if needed for Trilogy. She asked for information on POA, I gave her an Advanced Directive packet with the number to HIM for notary if needed. Life Alert information with number provided. I told her to check with [facility] about applying for HUD housing. Family in the room states they will get the application for her. Her sister asked if she could have dietary counseling and patient agrees. Dietary consult ordered. I will continue to follow along and order Trilogy or BIPAP if needed. She will also need a walk test for oxygen (she already has portable oxygen from [employer]). Cm will continue to follow and assist with discharge planning/needs. Basket Machine Operator: Yomaira Mccartydamir DCPIA - Discharge Planning Initial Assessment Updated by [email or web address]: Yomaira Mccartydamir on 07/07/18 3:13 pm * Is the patient Alert and Oriented? Yes * How many steps to enter\\exit or inside your home? 5/0 * PCP Lisa Glass APN with Dr. Ayesha Burdick * Pharmacy [facility] on [address] * Preadmission Environment Home Alone * ADLs Independent * Equipment Grab Bars Nebulizer Other * Other Equipment Portable oxygen * List name and contact numbers for known caregivers / representatives who currently or will assist patient after discharge: Marisol Flower sister - [phone] [facility] - [phone] Devika Littlejohn mother - [phone] [facility] * Verbal permission to speak to the caregivers and representatives has been obtained from the patient. Yes * Community resources currently utilized None * Please name any agencies selected above. [facility] for portable oxygen * Additional services required to return to the preadmission environment? Yes * Can the patient safely return to the preadmission environment? Yes * Has this patient been hospitalized within the prior 30 days at any hospital? Yes Last DP export: 07/11/18 9:26 am Patient Name: ADRLINE HUDDLESTON Page [id number] at 1627 All edits/amendments must be made on the electronic document DICTATION DATE: 07/11/181626 QUALITY INSPECTOR: ESCOBAR 07/11/181626 RPT#: [id number] DC DATE: STATUS: ADM IN [facility] [address] [place] [address] END OF REPORT
[2018-07-11 20:28] VITALS: BP 149/69
[2018-07-12 04:58] VITALS: BP 124/71
[2018-07-12 07:35] LABS: BASOPHILS 0.1 % (0-2); EOSINOPHILS 0.6 % (0-7); HEMATOCRIT 37.2 % (36.0-48.0); HEMOGLOBIN 11.3 g/dL (12-16); IMMATURE GRANULOCYTES 4.3 % (0-5); LYMPHOCYTES 18.2 % (15-50); MCH 27.3 pg (26.0-34.0); MCHC 30.4 g/dL (31.0-37.0); MCV 89.9 fL (80.0-100.0); MEAN PLATELET VOLUME 11.4 fL (7.4-10.4); NEUTROPHILS 68.8 % (40-80); PLATELET COUNT 137 10x3/uL (130-400); RBC 4.14 10x6/uL (4.00-5.40); RDW 15.4 % (11.5-14.5); WBC 17.9 10x3/uL (4.8-10.8)
[2018-07-12 07:47] LABS: ANION GAP 9.6 mmol/L (8-16); CREATININE - SERUM 0.9 mg/dL (0.6-1.3); POTASSIUM - SERUM 3.6 mmol/L (3.5-5.1)
[2018-07-12 08:34] VITALS: BP 153/44
[2018-07-12] MEDS ORDERED: PREDNISONE20 MG PO (10:40)
[2018-07-12] MEDS ORDERED: SYMBICORT 16010.2 GM INH (14:18)
[2018-07-12] MEDS ORDERED: ALBUTEROL2.5 MG/3 M INH ×2 (14:18→15:13)
[2018-07-12] MEDS ORDERED: ATROVENT 0.02%2.5 ML UPD ×2 (14:18→15:13)
--- NOTE | 2018-07-15 07:24 | MORECARE ---
CASE MANAGEMENT DISCHARGE SUMMARY PATIENT: DARLINE HUDDLESTON UNIT: [id number] ADM DATE: 07/04/18 AGE: 53 : 65 SEX: F ROOM/BED: D.2235 AUTHOR: RIGO,DOC PHYSICIAN: REFERRING PHYSICIAN: ALEXYS CRUZ MD DATE OF SERVICE: 07/15/18 Discharge Plan Patient Name: DARLINE HUDDLESTON Facility: [facility]:[place] : 1965 Planned Disposition: Home with Home Health Anticipated Discharge Date: Discharge Date: 07/12/2018 Expected LOS: 0 Initial Reviewer: [email or web address] Initial Review Date: 07/07/2018 Generated: 07/15/18 8:24 am Comments DCP- Discharge Planning Updated by [email or web address]: Yomaira Lenz on 07/11/18 3:[address] I have faxed the walk test to [facility]. They will fax me an order for Dr. Calabrese to sign once they get his progress note on home oxygen. They are setting up her home oxygen at 1700 today. She already has her portable oxygen and her trilogy in the room. CM to fax Dr. Calabrese's signed order and progress note when it is received. Sneha at [facility] states we can do this post discharge since her oxygen will already be set up. CM to continue to follow and assist with discharge planning/needs. CM will need to fax [facility] the discharge summary. DCP- Discharge Planning Updated by [email or web address]: Yomaira Lenz on 07/11/18 9:[address] Hutchinson stated she will not go home until Saturday. I called [facility] and informed them that she may not be discharging today. She did use her Trilogy last night and states she felt better this morning after wearing it. CM will continue to follow and assist with discharge planning/needs. DCP- Discharge Planning Updated by [email or web address]: Yomaira Lenz on 07/10/18 11:[address] Faxed signed order for oxygen to [facility]. Spoke with Darlene with [facility] [employer] and she will be out today with the Trilogy. Echo with [facility] is here assisting with application for personal care. CM will continue to follow and assist with discharge planning/needs. DCP- Discharge Planning Updated by [id number]: Yomaira Lenz on 07/09/18 12:[address] Spoke with patient and she is wanting information on personal care. I called [facility] and asked if Echo could see the patient and fill out an application for personal care. Echo will see her tomorrow. I called [facility] and set up home health for when patient is discharged. They will see her Saturday if she is discharged by then, I spoke with Angela. CM will continue to follow and assist with discharge planning/needs. DCP- Discharge Planning Updated by [email or web address]: Yomaira Lenz on 07/09/18 9:[address] Spoke with [facility], they will be her oxygen provider and will call if they need clinical sent. I spoke with Darlene with [facility] and she will be here today for Trilogy ([facility] does not supply Trilogy). Clinical faxed to [facility]. CM will continue to follow and assist with discharge planning/needs. DCP- Discharge Planning Updated by [email or web address]: Yomaira Lenz on 07/07/18 2:[address] Patient Name: DARLINE HUDDLESTON Admission Status: ER Accout number: [id number] Admission Date: 07-04-2018 : 1965 Admission Diagnosis:ACUTE RESPIRATORY FAILURE WITH HYPOXIA Attending: ALEXYS CRUZ Current LOS: 3 Anticipated DC Date: Planned Disposition: Home with Home Health Primary Insurance: MEDICARE A & B Discharge Planning Comments: CM met with patient and her family per request to discuss discharge planning. She was home from the hospital for 6 hours before returning with respiratory failure. She states she has CPAP and portable oxygen from [facility]. States will use [facility] for oxygen needs. She states she may need a BIPAP or Trilogy. I called [facility], but they are closed for the day. I will call back on Saturday once order is received for Trilogy or BIPAP. Patient states she will use another company if needed for Trilogy. She asked for information on POA, I gave her an Advanced Directive packet with the number to HIM for notary if needed. Life Alert information with number provided. I told her to check with [facility] about applying for HUD housing. Family in the room states they will get the application for her. Her sister asked if she could have dietary counseling and patient agrees. Dietary consult ordered. I will continue to follow along and order Trilogy or BIPAP if needed. She will also need a walk test for oxygen (she already has portable oxygen from [employer]). Cm will continue to follow and assist with discharge planning/needs. Aquaculture Farmer: Yomaira Mccartydamir DCPIA - Discharge Planning Initial Assessment Updated by [id number]: Yomaira Mccartydamir on 07/07/18 3:13 pm * Is the patient Alert and Oriented? Yes * How many steps to enter\exit or inside your home? 5/0 * PCP Lisa Glass APN with Dr. Ayesha Burdick * Pharmacy [facility] on [address] * Preadmission Environment Home Alone * ADLs Independent * Equipment Grab Bars Nebulizer Other * Other Equipment Portable oxygen * List name and contact numbers for known caregivers / representatives who currently or will assist patient after discharge: aMrisol Flower sister - [phone] [facility] sister - [phone] Devika Littlejohn mother - [phone] [facility] * Verbal permission to speak to the caregivers and representatives has been obtained from the patient. Yes * Community resources currently utilized None * Please name any agencies selected above. [facility] for portable oxygen * Additional services required to return to the preadmission environment? Yes * Can the patient safely return to the preadmission environment? Yes * Has this patient been hospitalized within the prior 30 days at any hospital? Yes Last DP export: 07/11/18 3:27 pm Patient Name: DARLINE HUDDLESTON Page [id number] at 0724 All edits/amendments must be made on the electronic document DICTATION DATE: 07/15/18722 SOCIAL SCIENCES PROFESSOR: ESCOBAR 07/15/18722 RPT#: [id number] DC DATE:07/12/18 STATUS: DIS IN [facility] [address] [place] [address] END OF REPORT
--- NOTE | 2018-07-16 19:45 | CN ---
PATIENT NAME:DARLINE LOPEZ MEDICAL RECORD: [id number] : 65 LOCATION:D.MS Jeffrey2235 ADMIT DATE: 07/04/18 ACCOUNT: [id number] CONSULTING PHYSICIAN: BRYAN HARDIN MD REFERRING PHYSICIAN: KEITH IBARRA MD DATE OF CONSULTATION: 07/04/2018 CONSULT REQUESTING PHYSICIAN: Keith Ibarra MD REASON FOR CONSULTATION: Acute hypoxic hypercapnic respiratory failure, vent management. HISTORY OF PRESENT ILLNESS: Ms. Lopez is a 53-year-old female who was just discharged from the hospital, I believe, yesterday and the patient brought in last night to the hospital with acute mental status changes and workup showed the patient acute hypoxic hypercapnic respiratory failure. The patient was intubated in the ER. Now, the patient is orally intubated and sedated. The history was taken by talking to the nursing staff, reviewing the patient's note and talking to Dr. Ibarra. REVIEW OF SYSTEMS: As in history of present illness. PAST MEDICAL HISTORY: 1. COPD with recurrent exacerbation. 2. Obstructive sleep apnea. 3. Obesity hypoventilation syndrome. 4. History of pneumonia. 5. Diabetes mellitus type 2. 6. Chronic backache. 7. Morbid obesity. ALLERGIES: NO KNOWN DRUG ALLERGY. MEDICATIONS: [facility] is reviewed. PERSONAL AND SOCIAL HISTORY: The patient is an ex-smoker. She is a nondrinker. FAMILY HISTORY: Noncontributory. PHYSICAL EXAMINATION: GENERAL: The patient is now lying comfortably, but she is in mild respiratory distress. VITAL SIGNS: The blood pressure is 100/73, pulse is 91, respirations 20, temperature is 98.4, SpO2 is 98%. She is on assist control mechanical ventilation. HEENT: Conjunctivae are pink. Sclerae are not icteric. NECK: Supple, no JVD. CHEST: The chest excursion is minimal on both sides. There is a basal crackle. No wheezing. HEART: Rhythm regular, normal sound, no murmur. ABDOMEN: Soft, bowel sounds present. No hepatosplenomegaly. RECTAL: Deferred. EXTREMITIES: No cyanosis, no clubbing, no pedal edema. CENTRAL NERVOUS SYSTEM: The patient is awake and alert. There are no obvious cranial nerve abnormalities. The gait was not tested. CONSULT REPORT [id number] DYCUS,DARLINE D CHEST RADIOGRAPH: There is increased interstitial marking. The ET tube is in good position. There is no consolidation. OTHER LABORATORY DATA: CBC: WBC 25.6, hemoglobin 13.8, hematocrit 45.2, the platelet count 286. Chemistry: Sodium 140, potassium 4.9, chloride 103, BUN 24, creatinine is 1, bicarbonate is 28.5, glucose 305. IMPRESSION: 1. Acute hypoxic hypercapnic respiratory failure. 2. Respiratory acidosis. 3. Acute exacerbation of chronic obstructive pulmonary disease. 4. Leukocytosis. 5. Obstructive sleep apnea. 6. Possible tracheobronchitis, rule out pneumonia. 7. Acute mental status changes secondary to hypercarbia. 8. Mildly elevated ammonia level. 9. Obesity hypoventilation syndrome. 10. Morbid obesity. RECOMMENDATION: 1. We will continue mechanical ventilation, adjust the setting. If stable, we will start weaning her tomorrow morning. 2. Brovana, budesonide nebulizer, albuterol/ipratropium nebulizer. 3. Methylprednisolone IV. 4. Continue Zosyn empiric antibiotics. 5. Methylprednisolone IV. 6. Lactulose. 7. Adjust the IV fluid. 8. NG tube feeding. 9. DVT and GI bleed prophylaxis. 10. Discussed with RN/RT, reviewed x-ray and labs. Discussed with Dr. Ibarra. Thank you for involving me in the care of Ms. Lopez. TRANSINT:[id number] Voice Confirmation ID: [id number] DOCUMENT ID: [id number] BRYAN HARDIN MD at 1945 CC: [id number] DICTATION DATE: 07/04/18 141 UNIFIED COMMUNICATIONS ENGINEER: 07/04/18 2212 DIS IN 07/12/18 [place] [id number] [place] [address]
== END 2018-07-12 14:51 | disposition home health service (06) | DRG 208 ==
LOC: D.ER 00:36 → D.ICU 02:33 → D.EDHOLD 02:33 → D.MS 02:33 → D.ICU 02:49 → D.MS 07-06 20:46
PROVIDERS: Emergency Medicine; Internal Medicine Nephrology; ADMIT Emergency Medicine
PROC: 5A1945Z Respiratory Ventilation, 24-96 Consecutive Hours (ICD-10-PCS; principal; 2018-07-04)
PROC: 0BH17EZ Insertion of Endotracheal Airway into Trachea, Via Natural or Artificial Opening (ICD-10-PCS; 2018-07-04)
PROC: 5A09557 Assistance with Respiratory Ventilation, Greater than 96 Consecutive Hours, Continuous Positive Airway Pressure (ICD-10-PCS; 2018-07-05)
DX: J96.02 Acute respiratory failure with hypercapnia (principal); J18.9 Pneumonia, unspecified organism; J44.1 Chronic obstructive pulmonary disease with (acute) exacerbation; E66.2 Morbid (severe) obesity with alveolar hypoventilation; Z68.43 Body mass index [BMI] 50.0-59.9, adult; J96.01 Acute respiratory failure with hypoxia; E11.9 Type 2 diabetes mellitus without complications; F25.9 Schizoaffective disorder, unspecified

== ENCOUNTER 2018-07-31 17:37 | Inpatient (IN) | payer MEDICARE ==
[~2018-07-31] VITALS: Ht 157.5 cm; Wt 127.0 kg
--- NOTE | ~2018-07-31 | CN ---
PATIENT NAME:DARLINE LOPEZ MEDICAL RECORD: [id number] : 65 LOCATION:D.M3 D.1209 ADMIT DATE: 08/01/18 ACCOUNT: [id number] CONSULTING PHYSICIAN: BRYAN HARDIN MD REFERRING PHYSICIAN: VERONICA RODGERS MD DATE OF CONSULTATION: 08/01/2018 CONSULT REQUESTING PHYSICIAN: Dr. Rodgers. REASON FOR CONSULTATION: Acute exacerbation of COPD. HISTORY OF PRESENT ILLNESS: Ms. Lopez is a 53-year-old female who is almost admitted every month for COPD exacerbation. The last time she was admitted, she was intubated on mechanical ventilation. According to the patient, when she finished the steroid, she developed shortness of breath, wheezing, and coughing. I have seen her in my office last week. She has some cellulitis and she was given a course of Keflex. REVIEW OF SYSTEMS: As in history of present illness. PAST MEDICAL HISTORY: 1. Ulnzp-rk-gllsynv hypoxic hypercarbic respiratory failure. 2. COPD with recurrent exacerbation. 3. Obstructive sleep apnea. 4. Obesity hypoventilation syndrome. 5. History of pneumonia. 6. Diabetes mellitus type 2. 7. Chronic backache. 8. Morbid obesity. ALLERGIES: She has no known drug allergies. MEDICATIONS: Grafoid is reviewed. PERSONAL AND SOCIAL HISTORY: The patient is an ex-smoker. She is a nondrinker. FAMILY HISTORY: Noncontributory. PHYSICAL EXAMINATION: GENERAL: Now, the patient is lying comfortably in bed. She is not in acute distress. VITAL SIGNS: The blood pressure is 152/95, pulse is 107, respiration is 22, temperature 98.4, SpO2 is 98% on 2 liters nasal cannula. HEENT: Conjunctivae are pink. Sclerae are not icteric. NECK: Supple, no JVD. CHEST: The chest excursion is minimal on both sides. There is a wheeze on forceful expiration. HEART: Rhythm regular, normal sound, no murmur. ABDOMEN: Soft, bowel sounds present. No hepatosplenomegaly. RECTAL: Deferred. EXTREMITIES: No cyanosis, no clubbing and 1+ pedal edema. SKIN: There is erythema of the left lower extremity. IMAGING: CTA of the chest did not show any pulmonary embolism. There is no pneumonia. There is some nodular infiltrate that has been improving comparing CONSULT REPORT [id number] DARLINE LOPEZ to the previous CT scan. The ultrasound of the lower extremity was negative for any DVT. OTHER LABORATORY DATA: CBC: WBC was 10.2, hemoglobin 10.6, hematocrit 34.4, and platelet count was 176. Chemistry: Sodium 140, potassium 4.3, BUN is 17, creatinine 0.7. IMPRESSION: 1. Acute exacerbation of chronic obstructive pulmonary disease. 2. Tracheobronchitis. 3. Dtahx-go-obvbigi hypoxic respiratory failure. 4. Morbid obesity. 5. Obstructive sleep apnea. 6. Cellulitis of the left lower extremity. RECOMMENDATION: 1. Continue albuterol and ipratropium nebulizer, Brovana and budesonide nebulizer. Start methylprednisolone IV. 2. Empiric antibiotic, clindamycin. 3. Supplemental oxygen. 4. Trilogy at night. 5. Singulair and Daliresp. Dr. Rodgers, thank you for involving me in the care of Ms. Lopez. TRANSINT:[id number] Voice Confirmation ID: [id number] DOCUMENT ID: [id number] BRYAN HARDIN MD CC: [id number] DICTATION DATE: 08/01/181911 SERGER: 08/02/18101 ADM IN [facility] [address] [id number]
[~2018-07-31 17:37] MED LIST changes: +ALBUTEROL2.5 MG/3 M INH; +ATROVENT 0.02%2.5 ML UPD; +PREDNISONE20 MG PO; +SYMBICORT 16010.2 GM INH
[2018-07-31] MEDS ORDERED: DALIRESP500 MCG PO (17:44)
[2018-07-31 18:16] LABS: BASOPHILS 0.4 % (0-2); EOSINOPHILS 3.2 % (0-7); HEMATOCRIT 34.4 % (36.0-48.0); HEMOGLOBIN 10.6 g/dL (12-16); IMMATURE GRANULOCYTES 0.8 % (0-5); LYMPHOCYTES 26.8 % (15-50); MCH 27.7 pg (26.0-34.0); MCHC 30.8 g/dL (31.0-37.0); MCV 89.8 fL (80.0-100.0); MONOCYTES 8.2 % (2-11); NEUTROPHILS 60.6 % (40-80); RBC 3.83 10x6/uL (4.00-5.40); RDW 15.7 % (11.5-14.5); WBC 10.2 10x3/uL (4.8-10.8)
[2018-07-31 18:25] LABS: PLATELET COUNT 176 10x3/uL (130-400)
[2018-07-31 18:34] LABS: ALKALINE PHOSPHATASE 85 U/L (46-116); ALT (SGPT) 25 U/L (10-68); BILIRUBIN - TOTAL 0.21 mg/dL (0.2-1.3); CALC OSMOLALITY 283 mosm/kg (275-300); CALCIUM 8.6 mg/dL (8.5-10.1); CARBON DIOXIDE 29.4 mmol/L (21.0-32.0); CHLORIDE - SERUM 104 mmol/L (98-107); CREATININE - SERUM 0.7 mg/dL (0.6-1.3); GLUCOSE 152 mg/dL (74-106); POTASSIUM - SERUM 4.3 mmol/L (3.5-5.1); PROTEIN - SERUM 7.1 g/dL (6.4-8.2); SODIUM 140 mmol/L (136-145); UREA NITROGEN 17 mg/dL (7-18); eGFR NON AFRICAN AMERICAN > 90 mL/min (90-120)
[2018-07-31 18:45] LABS: CKMB 0.4 U/L (0.0-3.6); CREATINE KINASE 49 UL (21-215); PRO BNP 43 pg/mL (0-125); TROPONIN-I < 0.017 ng/mL (0.000-0.060)
--- NOTE | 2018-07-31 20:36 | NUR ---
PT TO RADIOLOGY.
--- NOTE | 2018-07-31 20:54 | NUR ---
PT RETURNED FROM RADIOLOGY.
--- NOTE | 2018-07-31 22:37 | NUR ---
PT GIVEN BLANKET, DENIES ANY FURTHER NEEDS. FRIEND AT BEDSIDE.
[2018-08-01 00:01] VITALS: BP 130/74; BMI 51.3
--- NOTE | 2018-08-01 00:45 | NUR ---
PT RECIEVED FROM ER VIA WC WITH HOSPITAL STAFF AT BEDSIDE. ALERT AND ORIENTED X4. RESPIRATIONS LABORED, SHALLOW. O2 @ 2L NC. TOLERATING WELL. VITAL SIGNS STABLE AND AFEBRILE. PT REQUESTED UPDRAFT. NOTIFIED RESPIRATORY. NO VISUAL CUES OF DISTRESS NOTED. DENIES ANY OTHER NEEDS AT THIS TIME. BED LOW, SIDE RAILS UP X2. CALL LIGHT IN REACH. WILL CONTINUE TO MONITOR.
--- NOTE | 2018-08-01 07:45 | NUR ---
AM ROUNDS COMPLETED. INTRODUCED MYSELF TO PT PRIMARY RN FOR TODAYS SHIFT. PT IS A&O SITTING UP IN BED RESTING QUIETLY. SHIFT ASSESSMENT COMPLETED. PT INQUIRING ABOUT HER HOME MEDICATIONS BEING RESTARTED. WILL DISCUSS WITH PRIMARY AND GET THEM RESTARTED. PT VOICED THANKS AND DENIES ANY CURRENT PAIN OR NEEDS AT THIS TIME. CL IN REACH, BED IN LOWEST, SIDE RAILS X2. WILL CTM.
[2018-08-01 08:00] VITALS: BP 119/64
[2018-08-01] MEDS ORDERED: ZETIA10 MG PO (10:03)
[2018-08-01 12:00] VITALS: BP 167/86
[2018-08-01 12:02] LABS: BASOPHILS 0.2 % (0-2); EOSINOPHILS 1.3 % (0-7); HEMATOCRIT 34.9 % (36.0-48.0); HEMOGLOBIN 10.9 g/dL (12-16); IMMATURE GRANULOCYTES 0.5 % (0-5); MCH 27.9 pg (26.0-34.0); MCHC 31.2 g/dL (31.0-37.0); MCV 89.3 fL (80.0-100.0); MEAN PLATELET VOLUME 11.2 fL (7.4-10.4); PLATELET COUNT 181 10x3/uL (130-400); RBC 3.91 10x6/uL (4.00-5.40); RDW 15.5 % (11.5-14.5)
[2018-08-01 12:12] LABS: CALCIUM 8.8 mg/dL (8.5-10.1); CARBON DIOXIDE 29.5 mmol/L (21.0-32.0); CHLORIDE - SERUM 104 mmol/L (98-107); CREATININE - SERUM 0.6 mg/dL (0.6-1.3); POTASSIUM - SERUM 4.2 mmol/L (3.5-5.1); SODIUM 141 mmol/L (136-145); eGFR NON AFRICAN AMERICAN > 90 mL/min (90-120)
[2018-08-01 12:14] LABS: CALC OSMOLALITY 286 mosm/kg (275-300); GLUCOSE 225 mg/dL (74-106); UREA NITROGEN 10 mg/dL (7-18)
--- NOTE | 2018-08-01 12:41 | NUR ---
PTS L.FA PIV INFILTRATED. D/C WITH CATHETER TIP FULLY INTACT. WILL RESITE AFTER SHE EATS. PROVIDED PT WITH PRN PAIN MEDICATION REQUESTED. FSBS 222 PROVIDED WITH INSULIN PER SS. WAITING TO GIVE REMAINING HOME MEDICATIONS WHEN PHARMACY PROVIDES. NO FURTHER NEEDS AT THIS TIME. WILL CTM.
--- NOTE | 2018-08-01 13:20 | NUR ---
STILL WAITING ON PHARMACY TO PROVIDE PTS HOME MEDICATIONS. PAGED THEM AGAIN AND THEY STATE THEY WILL BRING BY SHORTLY.
[2018-08-01 13:40] VITALS: Ht 157.5 cm; Wt 127.0 kg
--- NOTE | 2018-08-01 14:29 | NUR ---
PAGED PHARMACY AGAIN AND STILL HAVE NOT REC'D PTS MEDICATIONS THAT ARE NOW 4 HRS LATE. WILL NOTIFY PHYSICIAN TO SEE IF WE NEED TO JUST START NEXT DOSE.
[2018-08-01 16:00] VITALS: BP 152/95
--- NOTE | 2018-08-01 16:27 | NUR ---
FSBS 264 PROVIDED PT WITH INSULIN PER SS. NEW 20 GUAGE PIV INSERTED TO L.FA X2 STICKS. INITIATED IV ANBX ORDERED. PT SITTING UP IN BED RESTING QUIETLY STATES SHE IS FEELING ALRIGHT. DENIES ANY CURRENT PAIN OR NEEDS. CL IN REACH, BED IN LOWEST, SIDE RAILS X2. WILL CPOC.
[2018-08-01 19:00] VITALS: BP 123/69
--- NOTE | 2018-08-01 19:16 | NUR ---
PT IN BED PROVIDED YOHANA PER REQUEST. DENIES FURTHER NEEDS AT THIS TIME.
[2018-08-02] VITALS: BP 130/73
[2018-08-02 04:00] VITALS: BP 139/64
[2018-08-02 06:23] LABS: BASOPHILS 0.2 % (0-2); EOSINOPHILS 0 % (0-7); HEMATOCRIT 35.7 % (36.0-48.0); LYMPHOCYTES 7.2 % (15-50); MCH 27.5 pg (26.0-34.0); MCHC 30.8 g/dL (31.0-37.0); MCV 89.3 fL (80.0-100.0); MEAN PLATELET VOLUME 11.3 fL (7.4-10.4); MONOCYTES 1.5 % (2-11); NEUTROPHILS 90.1 % (40-80); PLATELET COUNT 192 10x3/uL (130-400); RDW 15.6 % (11.5-14.5); WBC 10.5 10x3/uL (4.8-10.8)
[2018-08-02 06:46] LABS: ALBUMIN 3.1 g/dL (3.4-5.0); BILIRUBIN - TOTAL 0.22 mg/dL (0.2-1.3); CALCIUM 8.7 mg/dL (8.5-10.1); PROTEIN - SERUM 7.5 g/dL (6.4-8.2)
[2018-08-02 06:49] LABS: CREATININE - SERUM 0.9 mg/dL (0.6-1.3)
[2018-08-02 07:57] VITALS: BP 142/76
--- NOTE | 2018-08-02 08:09 | NUR ---
PT LAYING IN BED RESTING WITH EYES OPEN, RESPIRATIONS EVEN AND UNLABORED, NO S/S OF DISTRESS NOTED. LUNGS CLEAR TO AUSCULTATION. BILAT LOWER LOBES DIMINISHED SOUNDING. PT A BIT SOB DUE TO JUST HAVING GOTTEN UP TO USE THE BATHROOM. O2 NOTED AT 2L VIA NC. C/O PAIN IN BILAT LEGS AND LOWER BACK, PT MEDICATED WITH NORCO 10 PER EMAR ORDER. DENIES FURTHER NEEDS. BED LOW AND LOCKED, SR UP X2, CL IN EASY REACH.
--- NOTE | 2018-08-02 11:19 | MORECARE ---
CASE MANAGEMENT DISCHARGE SUMMARY PATIENT: DARLINE HUDDLESTON UNIT: [id number] ADM DATE: 08/01/18 AGE: 53 : 65 SEX: F ROOM/BED: D.1209 AUTHOR: NATALIYA SIERRA PHYSICIAN: REFERRING PHYSICIAN: VERONICA RODGERS MD DATE OF SERVICE: 08/02/18 Discharge Plan Patient Name: DARLINE HUDDLESTON [facility] : 1965 Planned Disposition: Home Anticipated Discharge Date: Discharge Date: Expected LOS: Initial Reviewer: [email or web address] Initial Review Date: 08/02/2018 Generated: 08/02/18 12:19 pm Comments DCP- Discharge Planning Updated by [email or web address]: Alba Hobbs on 08/02/18 9:[address] 1020 RECEIVED TC FROM MACEY WITH [facility] REGARDING PATIENT'S ADMITTING DIAGNOSIS. UPDATE PROVIDED. PATIENT IS CURRENT / [employer] [facility]. CM TO FOLLOW FOR ASSISTANCE WITH DISCHARGE PLANNING. Patient Name: DARLINE HUDDLESTON Page [phone] at 1119 All edits/amendments must be made on the electronic document DICTATION DATE: 08/02/181118 ROPE CUTTER: ESCOBAR 08/02/18 111 RPT#: [id number] DC DATE: STATUS: ADM IN [facility] [address] [place] [address] END OF REPORT
[2018-08-02 12:00] VITALS: BP 137/76
--- NOTE | 2018-08-02 14:12 | NUR ---
PT HERE FOR DYSPNEA AND CELLULITIS FOR THIS VISIT PT DENIES NEEDS AT THIS TIME WILL CONTINUE TO MONITOR
--- NOTE | 2018-08-02 14:44 | NUR ---
HIGH BLOOD SUGARS BROUGHT TO THE ATTENTION OF DR. RODGERS. DR. RODGERS CHANGED SLIDING SCALE TO HIGH. VOICES THAT SHE WOULD LIKE A SHOWER, PT PERSUADED TO BED BATH PER PT HAVING SOB AND DIFFICULTIES BREATHING WHEN UP AND MOVING. DENIES FURTHER NEEDS. CL IN EASY REACH.
--- NOTE | 2018-08-02 19:19 | NUR ---
PT IN BED. PROVIDED SHERBERT, LINENS, AND A NEW GOWN PER REQUEST. PT ALSO REQUESTS A "HAIR WASHING BAG" UNABLE TO MEET REQUEST DUE TO LACK OF SUPPLIES. PT DENIES FURTHER NEEDS AT THIS TIME.
--- NOTE | 2018-08-03 07:46 | NUR ---
PT LAYING IN BED RESTING WITH EYES CLOSED, AWOKEN EASILY TO VERBAL STIMULI. RESPIRATIONS EVEN AND UNLABORED, NO S/S OF DISTRESS NOTED. LCTA. DENIES NEEDS AT THIS TIME. SOB NOTED WHEN PT IS UP AND MOVING. BED LOW AND LOCKED, SR UP X2, CL IN EASY REACH. WILL CONTINUE TO MONITOR.
[2018-08-03 08:00] VITALS: BP 147/71
[2018-08-03 08:39] LABS: HEMATOCRIT 36.8 % (36.0-48.0); HEMOGLOBIN 11.5 g/dL (12-16); MCH 27.7 pg (26.0-34.0); MCHC 31.3 g/dL (31.0-37.0); MCV 88.7 fL (80.0-100.0); PLATELET COUNT 216 10x3/uL (130-400); RBC 4.15 10x6/uL (4.00-5.40); RDW 15.8 % (11.5-14.5); WBC 21.5 10x3/uL (4.8-10.8)
[2018-08-03 08:50] LABS: CALCIUM 9.2 mg/dL (8.5-10.1); CARBON DIOXIDE 27.6 mmol/L (21.0-32.0); CHLORIDE - SERUM 102 mmol/L (98-107); CREATININE - SERUM 0.8 mg/dL (0.6-1.3); SODIUM 139 mmol/L (136-145); UREA NITROGEN 19 mg/dL (7-18); eGFR NON AFRICAN AMERICAN 79 mL/min (90-120)
[2018-08-03 08:51] LABS: CALC OSMOLALITY 289 mosm/kg (275-300); GLUCOSE 270 mg/dL (74-106)
[2018-08-03 09:13] LABS: LYMPHOCYTES 8 % (15-50); MONOCYTES 1 % (2-11); NEUTROPHILS 89 % (40-80); PLATELET ESTIMATE NORMAL
[2018-08-03 12:00] VITALS: BP 126/61
[2018-08-03 16:00] VITALS: BP 116/58
[2018-08-03 20:39] VITALS: BP 125/67
[2018-08-04] VITALS (7 sets, daily range): BP systolic 106–153; BP diastolic 46–89
--- NOTE | 2018-08-04 00:31 | NUR ---
A/OX4. RAMOS. SITTING ON SIDE OF BED. CPAP MACHINE IN ROOM. DENIES NEEDS AT THIS TIME. WILL CONTINUE POC.
[2018-08-04 07:55] LABS: BASOPHILS 0.2 % (0-2); EOSINOPHILS 0.1 % (0-7); HEMATOCRIT 35.9 % (36.0-48.0); HEMOGLOBIN 11.2 g/dL (12-16); IMMATURE GRANULOCYTES 1.5 % (0-5); MCH 27.8 pg (26.0-34.0); MCHC 31.2 g/dL (31.0-37.0); MCV 89.1 fL (80.0-100.0); MEAN PLATELET VOLUME 10.7 fL (7.4-10.4); MONOCYTES 7.5 % (2-11); NEUTROPHILS 67.7 % (40-80); PLATELET COUNT 203 10x3/uL (130-400); RBC 4.03 10x6/uL (4.00-5.40); RDW 16.3 % (11.5-14.5); WBC 18.8 10x3/uL (4.8-10.8)
[2018-08-04 08:15] LABS: CALCIUM 9.4 mg/dL (8.5-10.1); CARBON DIOXIDE 29.1 mmol/L (21.0-32.0); CHLORIDE - SERUM 105 mmol/L (98-107); CREATININE - SERUM 0.7 mg/dL (0.6-1.3); POTASSIUM - SERUM 4.3 mmol/L (3.5-5.1); SODIUM 144 mmol/L (136-145); eGFR NON AFRICAN AMERICAN > 90 mL/min (90-120)
[2018-08-04 08:18] LABS: CALC OSMOLALITY 292 mosm/kg (275-300); GLUCOSE 133 mg/dL (74-106); UREA NITROGEN 25 mg/dL (7-18)
[2018-08-04] MEDS ORDERED: CLEOCIN HCL300 MG PO (09:34)
--- NOTE | 2018-08-04 16:21 | MORECARE ---
CASE MANAGEMENT DISCHARGE SUMMARY PATIENT: DARLINE HUDDLESTON UNIT: [id number] ADM DATE: 08/01/18 AGE: 53 : 65 SEX: F ROOM/BED: D.1209 AUTHOR: NATALIYA SIERRA PHYSICIAN: REFERRING PHYSICIAN: VERONICA RODGERS MD DATE OF SERVICE: 08/04/18 Discharge Plan Patient Name: DARLINE HUDDLESTON Facility: [facility]:[place] : 1965 Planned Disposition: Home Anticipated Discharge Date: Discharge Date: Expected LOS: Initial Reviewer: [email or web address] Initial Review Date: 08/02/2018 Generated: 08/04/18 5:21 pm Comments DCP- Discharge Planning Updated by [email or web address]: Alba Hobbs on 08/04/18 3:[address] LATE ENTRY 1230 CM VISITED WITH THE PATIENT AT THE BEDSIDE. ADVISED SHE HAD DISCHARGE ORDERS FOR TODAY. SHE HAD NOT SEEN THE DOCTOR TODAY. PRIMARY NURSE TO CALL [facility] TO ADVISE OF D/C ORDER. WILL ALSO AWAIT PULMONARY VISIT. PATIENT IS SHORT OF BREATH TURNING IN BED. SPEAKING IN SHORT SENTENCES. HAS ONLY BEEN UP TO THE BATHROOM. SHE VOICES CONCERN BECAUSE SHE STILL FEELS SHORT OF BREATH. OXYGEN 2-3LITERS. SHE HAS HAD TWO RECENT READMISSIONS. SHE WILL HAVE HER SISTER OR FRIEND TO PROVIDE TRANSPORTATION WHEN DISCHARGED. [facility] PROVIDES HER HOME OXYGEN THERAPY BIOMED PROVIDED HER TRILOGY. PHARMACY- [facility] [address] [facility]- OXYGEN, TRILOGY, NEBULIZER, GLUCOMETER AND CANE. 1277 DR ALCALA VISITED AND ASSESSED THE PATIENT. SHE IS NOT CLEARED FOR DISCHARGE TODAY. CONTINUES W/ IV STEROIDS AND IVAB. HE NOTED SHE IS DYSPNEIC WITH MINIMAL ACTIVITY. SHE IS TO RESUME HOME HEALTH WITH [facility] AT DISCHARGE. DCP- Discharge Planning Updated by [email or web address]: Alba Hobbs on 08/02/18 9:[address] 1020 RECEIVED TC FROM MACEY WITH [employer] REGARDING PATIENT'S ADMITTING DIAGNOSIS. UPDATE PROVIDED. PATIENT IS CURRENT W/ [facility] HOME HEALTH. CM TO FOLLOW FOR ASSISTANCE WITH DISCHARGE PLANNING. DCPIA - Discharge Planning Initial Assessment Updated by [id number]: Mayra Marrufo on 08/02/18 11:19 am * Is the patient Alert and Oriented? Yes * PCP [facility] * Pharmacy [facility] [address] * Preadmission Environment Home Alone * ADLs Independent * Equipment Cane Nebulizer Oxygen * Other Equipment TRILOGY * List name and contact numbers for known caregivers / representatives who currently or will assist patient after discharge: FERCHO SHARMA, * Community resources currently utilized Home Health * Please name any agencies selected above. [facility] * Additional services required to return to the preadmission environment? No * Can the patient safely return to the preadmission environment? Yes * Has this patient been hospitalized within the prior 30 days at any hospital? Yes Last DP export: 08/02/18 10:19 a Patient Name: DARLINE HUDDLESTON Page 13815 at 1621 All edits/amendments must be made on the electronic document DICTATION DATE: 08/04/181619 BUCKLE ATTACHING MACHINE OPERATOR: ESCOBAR 08/04/181619 RPT#: [id number] DC DATE: STATUS: ADM IN [facility] [address] [place] [address] END OF REPORT
--- NOTE | 2018-08-04 16:24 | NUR ---
NORCO 10 PO GIVEN FOR LEVEL # 9 IN LOWER [place]
--- NOTE | 2018-08-04 19:05 | NUR ---
PATIENT IS RESTING IN HER BED. DENIES ANY NEEDS AT THIS TIME. BED IS DOWN LOW WIHT SIDE RIALS UP X2 AND CALL LIGHT IS IN REACH.
[2018-08-05 01:32] VITALS: BP 177/91
[2018-08-05 04:00] VITALS: BP 169/80
[2018-08-05 07:01] LABS: BASOPHILS 0.1 % (0-2); EOSINOPHILS 0 % (0-7); HEMATOCRIT 35.3 % (36.0-48.0); HEMOGLOBIN 10.9 g/dL (12-16); IMMATURE GRANULOCYTES 1.8 % (0-5); MCH 27.4 pg (26.0-34.0); MCHC 30.9 g/dL (31.0-37.0); MCV 88.7 fL (80.0-100.0); MEAN PLATELET VOLUME 11.1 fL (7.4-10.4); MONOCYTES 5.7 % (2-11); NEUTROPHILS 80.4 % (40-80); PLATELET COUNT 213 10x3/uL (130-400); RBC 3.98 10x6/uL (4.00-5.40); RDW 15.8 % (11.5-14.5)
[2018-08-05 07:08] LABS: CALC OSMOLALITY 288 mosm/kg (275-300); CALCIUM 9.1 mg/dL (8.5-10.1); CARBON DIOXIDE 31.5 mmol/L (21.0-32.0); CHLORIDE - SERUM 102 mmol/L (98-107); CREATININE - SERUM 0.8 mg/dL (0.6-1.3); GLUCOSE 229 mg/dL (74-106); SODIUM 139 mmol/L (136-145); UREA NITROGEN 24 mg/dL (7-18); eGFR NON AFRICAN AMERICAN 79 mL/min (90-120)
[2018-08-05 08:32] VITALS: BP 133/82
[2018-08-05] MEDS ORDERED: PREDNISONE20 MG PO (10:21)
--- NOTE | 2018-08-05 10:55 | NUR ---
Rehab Note- Acute Inpatient Rehab prescreen order received. Upon review of her medical record- the patient was signed off by PT upon evaluation on 08/01/18, the patient is too high level to qualify for inpatient acute rehab at this time. Will follow for any changes in physical mobility. Thank you for this referral! Jennifer Arana RN Clinical Liaison, [facility]
--- NOTE | 2018-08-05 11:27 | MORECARE ---
CASE MANAGEMENT DISCHARGE SUMMARY PATIENT: DARLINE HUDDLESTON UNIT: [id number] ADM DATE: 08/01/18 AGE: 53 : 65 SEX: F ROOM/BED: D.1209 AUTHOR: RIGO,DOC PHYSICIAN: REFERRING PHYSICIAN: VERONICA RODGERS MD DATE OF SERVICE: 08/05/18 Discharge Plan Patient Name: DARLINE HUDDLESTON Facility: [facility]:[place] : 1965 Planned Disposition: Home Anticipated Discharge Date: Discharge Date: Expected LOS: Initial Reviewer: [id number] Initial Review Date: 08/02/2018 Generated: 08/05/18 12:26 pm Comments DCP- Discharge Planning Updated by [id number]: Mayra Marrufo on 08/05/18 10:[address] Patient Name: DARLINE HUDDLESTON Admission Status: ER Accout number: [id number] Admission Date: 08-01-2018 : 1965 Admission Diagnosis: Attending: ANA MARIA, Current LOS: 4 Anticipated DC Date: Planned Disposition: Home Primary Insurance: MEDICARE A & B Discharge Planning Comments: CM MET WITH PATIENT AND HER PLAN IS TO DC TO HOME AND RESUME HH WITH [facility]. PATIENT DOES NOT WANT [facility]. CM WILL FOLLOW AND ASSIST. Horticultural Manager: Mayra Marrufo DCP- Discharge Planning Updated by [id number]: Alba Hobbs on 08/04/18 3:[address] LATE ENTRY 1230 CM VISITED WITH THE PATIENT AT THE BEDSIDE. ADVISED SHE HAD DISCHARGE ORDERS FOR TODAY. SHE HAD NOT SEEN THE DOCTOR TODAY. PRIMARY NURSE TO CALL [facility] TO ADVISE OF D/C ORDER. WILL ALSO AWAIT PULMONARY VISIT. PATIENT IS SHORT OF BREATH TURNING IN BED. SPEAKING IN SHORT SENTENCES. HAS ONLY BEEN UP TO THE BATHROOM. SHE VOICES CONCERN BECAUSE SHE STILL FEELS SHORT OF BREATH. OXYGEN 2-3LITERS. SHE HAS HAD TWO RECENT READMISSIONS. SHE WILL HAVE HER SISTER OR FRIEND TO PROVIDE TRANSPORTATION WHEN DISCHARGED. [employer] PROVIDES HER HOME OXYGEN THERAPY BIOMED PROVIDED HER TRILOGY. PHARMACY- [facility]- OXYGEN, TRILOGY, NEBULIZER, GLUCOMETER AND CANE. [address] DR ALCALA VISITED AND ASSESSED THE PATIENT. SHE IS NOT CLEARED FOR DISCHARGE TODAY. CONTINUES W/ IV STEROIDS AND IVAB. HE NOTED SHE IS DYSPNEIC WITH MINIMAL ACTIVITY. SHE IS TO RESUME HOME HEALTH WITH [facility] AT DISCHARGE. DCP- Discharge Planning Updated by [id number]: Alba Hobbs on 08/02/18 9:[address] 1020 RECEIVED TC FROM MACEY WITH [facility] REGARDING PATIENT'S ADMITTING DIAGNOSIS. UPDATE PROVIDED. PATIENT IS CURRENT W/ [facility]. CM TO FOLLOW FOR ASSISTANCE WITH DISCHARGE PLANNING. DCPIA - Discharge Planning Initial Assessment Updated by [id number]: Mayra Marrufo on 08/02/18 11:19 am * Is the patient Alert and Oriented? Yes * PCP ЕКАТЕРИНА VALENZUELA * Pharmacy [facility] [address] * Preadmission Environment Home Alone * ADLs Independent * Equipment Cane Nebulizer Oxygen * Other Equipment TRILOGY * List name and contact numbers for known caregivers / representatives who currently or will assist patient after discharge: FERCHO SHARMA, * Community resources currently utilized Home Health * Please name any agencies selected above. [facility] * Additional services required to return to the preadmission environment? No * Can the patient safely return to the preadmission environment? Yes * Has this patient been hospitalized within the prior 30 days at any hospital? Yes Coverage Notice Reviewer: [id number] - Mayra Niru Notice Issued Date-Time: 08/05/2018 11:23 Notice Type: IM Discharge Notice Notice Delivered To: Patient Relationship to Patient: Self Relay Telegrapher Name: Delivery Method: HAND - Hand Delivered Luli Days: Prior Verbal Notification: Recipient Understood Notice: Yes Recipient Signature: Yes Med Rec Note Co-signed by Attending: Coverage Notice Comment: Last DP export: 08/04/18 3:21 p Patient Name: DARLINE HUDDLESTON Page 35257 at 1127 All edits/amendments must be made on the electronic document DICTATION DATE: 08/05/181125 LIVE GAMES DEALER: ESCOBAR 08/05/181125 RPT#: [id number] DC DATE: STATUS: ADM IN [facility] [address] [place] [address] END OF REPORT
--- NOTE | 2018-08-05 11:48 | MORECARE ---
CASE MANAGEMENT DISCHARGE SUMMARY PATIENT: DARLINE HUDDLESTON UNIT: [id number] ADM DATE: 08/01/18 AGE: 53 : 65 SEX: F ROOM/BED: D.1209 AUTHOR: RIGO,DOC PHYSICIAN: REFERRING PHYSICIAN: VERONICA RODGERS MD DATE OF SERVICE: 08/05/18 Discharge Plan Patient Name: DARLINE HUDDLESTON Facility: [facility]:[place] : 1965 Planned Disposition: Home Anticipated Discharge Date: Discharge Date: Expected LOS: Initial Reviewer: [id number] Initial Review Date: 08/02/2018 Generated: 08/05/18 12:48 pm Comments DCP- Discharge Planning Updated by [id number]: Mayra Marrufo on 08/05/18 10:[address] Patient Name: DARLINE HUDDLESTON Admission Status: ER Accout number: [id number] Admission Date: 08-01-2018 : 1965 Admission Diagnosis: Attending: ANA MARIA, Current LOS: 4 Anticipated DC Date: Planned Disposition: Home Primary Insurance: MEDICARE A & B Discharge Planning Comments: PATIENT CHANGED HER MIND, STATES SHE WILL GO TO [facility] IF ACCEPTED. Drafter Civil Engineering: Mayra Marrufo DCP- Discharge Planning Updated by [id number]: Mayra Marrufo on 08/05/18 10:[address] Patient Name: DARLINE HUDDLESTON Admission Status: ER Accout number: [id number] Admission Date: 08-01-2018 : 1965 Admission Diagnosis: Attending: ANA MARIA, Current LOS: 4 Anticipated DC Date: Planned Disposition: Home Primary Insurance: MEDICARE A & B Discharge Planning Comments: CM MET WITH PATIENT AND HER PLAN IS TO DC TO HOME AND RESUME HH WITH [facility]. PATIENT DOES NOT WANT [facility]. CM WILL FOLLOW AND ASSIST. Drafter Civil Engineering: Mayra Marrufo DCP- Discharge Planning Updated by [id number]: Alba Hobbs on 08/04/18 3:[address] LATE ENTRY 1230 CM VISITED WITH THE PATIENT AT THE BEDSIDE. ADVISED SHE HAD DISCHARGE ORDERS FOR TODAY. SHE HAD NOT SEEN THE DOCTOR TODAY. PRIMARY NURSE TO CALL [facility] TO ADVISE OF D/C ORDER. WILL ALSO AWAIT PULMONARY VISIT. PATIENT IS SHORT OF BREATH TURNING IN BED. SPEAKING IN SHORT SENTENCES. HAS ONLY BEEN UP TO THE BATHROOM. SHE VOICES CONCERN BECAUSE SHE STILL FEELS SHORT OF BREATH. OXYGEN 2-3LITERS. SHE HAS HAD TWO RECENT READMISSIONS. SHE WILL HAVE HER SISTER OR FRIEND TO PROVIDE TRANSPORTATION WHEN DISCHARGED. [facility] PROVIDES HER HOME OXYGEN THERAPY BIOMED PROVIDED HER TRILOGY. PHARMACY- [facility] [address] DME- OXYGEN, TRILOGY, NEBULIZER, GLUCOMETER AND CANE. [address] DR ALCALA VISITED AND ASSESSED THE PATIENT. SHE IS NOT CLEARED FOR DISCHARGE TODAY. CONTINUES W/ IV STEROIDS AND IVAB. HE NOTED SHE IS DYSPNEIC WITH MINIMAL ACTIVITY. SHE IS TO RESUME HOME HEALTH WITH [facility] AT DISCHARGE. DCP- Discharge Planning Updated by [id number]: Alba Hobbs on 08/02/18 9:[address] 1020 RECEIVED TC FROM MACEY WITH [facility] REGARDING PATIENT'S ADMITTING DIAGNOSIS. UPDATE PROVIDED. PATIENT IS CURRENT W/ [facility]. CM TO FOLLOW FOR ASSISTANCE WITH DISCHARGE PLANNING. DCPIA - Discharge Planning Initial Assessment Updated by [id number]: Mayra Marrufo on 08/02/18 11:19 am * Is the patient Alert and Oriented? Yes * PCP ЕКАТЕРИНА VALENZUELA * Pharmacy [facility] [address] * Preadmission Environment Home Alone * ADLs Independent * Equipment Cane Nebulizer Oxygen * Other Equipment TRILOGY * List name and contact numbers for known caregivers / representatives who currently or will assist patient after discharge: FERCHO SHARMA, * Community resources currently utilized Home Health * Please name any agencies selected above. [facility] * Additional services required to return to the preadmission environment? No * Can the patient safely return to the preadmission environment? Yes * Has this patient been hospitalized within the prior 30 days at any hospital? Yes Coverage Notice Reviewer: [id number] - Mayra Marrufo Notice Issued Date-Time: 08/05/2018 11:23 Notice Type: IM Discharge Notice Notice Delivered To: Patient Relationship to Patient: Self Rehabilitation Technician Name: Delivery Method: HAND - Hand Delivered Luli Days: Prior Verbal Notification: Recipient Understood Notice: Yes Recipient Signature: Yes Med Rec Note Co-signed by Attending: Coverage Notice Comment: Last DP export: 08/05/18 10:27 a Patient Name: DARLINE HUDDLESTON Page 82121 at 1148 All edits/amendments must be made on the electronic document DICTATION DATE: 08/05/181146 MEDICAL RECEPTIONIST ASSISTANT: ESCOBAR 08/05/18 114 RPT#: [id number] DC DATE: STATUS: ADM IN [facility] [address] [place] [address] END OF REPORT
--- NOTE | 2018-08-05 13:29 | MORECARE ---
CASE MANAGEMENT DISCHARGE SUMMARY PATIENT: DARLINE HUDDLESTON UNIT: [id number] ADM DATE: 08/01/18 AGE: 53 : 65 SEX: F ROOM/BED: D.1209 AUTHOR: NATALIYA SIERRA PHYSICIAN: REFERRING PHYSICIAN: VERONICA RODGERS MD DATE OF SERVICE: 08/05/18 Discharge Plan Patient Name: DARLINE HUDDLESTON Facility: [facility]:[place] : 1965 Planned Disposition: Home Hlth Svc w Plan Readm Anticipated Discharge Date: Discharge Date: Expected LOS: Initial Reviewer: [id number] Initial Review Date: 08/02/2018 Generated: 08/05/18 2:29 pm Comments DCP- Discharge Planning Updated by [id number]: Mayra Marrufo on 08/05/18 12:[address] Patient Name: DARLINE HUDDLESTON Admission Status: ER Accout number: [id number] Admission Date: 08-01-2018 : 1965 Admission Diagnosis: Attending: ANA MARIA, Current LOS: 4 Anticipated DC Date: Planned Disposition: Home Hlth Svc w Plan Readm Primary Insurance: MEDICARE A & B Discharge Planning Comments: CM CALLED AND SPOKE WITH SOTERO AT [facility], SHE STATES PATIENT IS CURRENT WITH THEM AND SHE RECIEVES OT, PT AND NURSING. CM WILL FAX DC PAPERS TO [facility]. PATIENT CAN BE DC'D IF DR. ALCALA OKAYS HER DC TODAY. CM WILL FOLLOW AND ASSIST. Greens Tier: Mayra Marrufo DCP- Discharge Planning Updated by [id number]: Mayra Marrufo on 08/05/18 10:[address] Patient Name: DARLINE HUDDLESTON Admission Status: ER Accout number: [id number] Admission Date: 08-01-2018 : 1965 Admission Diagnosis: Attending: ANA MARIA, Current LOS: 4 Anticipated DC Date: Planned Disposition: Home Primary Insurance: MEDICARE A & B Discharge Planning Comments: PATIENT CHANGED HER MIND, STATES SHE WILL GO TO [facility] IF ACCEPTED. Greens Tier: Mayra Marrufo DCP- Discharge Planning Updated by [id number]: Mayra Marrufo on 08/05/18 10:[address] Patient Name: DARLINE HUDDLESTON Admission Status: ER Accout number: [id number] Admission Date: 08-01-2018 : 1965 Admission Diagnosis: Attending: ANA MARIA, Current LOS: 4 Anticipated DC Date: Planned Disposition: Home Primary Insurance: MEDICARE A & B Discharge Planning Comments: CM MET WITH PATIENT AND HER PLAN IS TO DC TO HOME AND RESUME HH WITH [facility]. PATIENT DOES NOT WANT [facility]. CM WILL FOLLOW AND ASSIST. Greens Tier: Mayra Marrufo DCP- Discharge Planning Updated by [id number]: Alba Hobbs on 08/04/18 3:[address] LATE ENTRY 1230 CM VISITED WITH THE PATIENT AT THE BEDSIDE. ADVISED SHE HAD DISCHARGE ORDERS FOR TODAY. SHE HAD NOT SEEN THE DOCTOR TODAY. PRIMARY NURSE TO CALL [facility] TO ADVISE OF D/C ORDER. WILL ALSO AWAIT PULMONARY VISIT. PATIENT IS SHORT OF BREATH TURNING IN BED. SPEAKING IN SHORT SENTENCES. HAS ONLY BEEN UP TO THE BATHROOM. SHE VOICES CONCERN BECAUSE SHE STILL FEELS SHORT OF BREATH. OXYGEN 2-3LITERS. SHE HAS HAD TWO RECENT READMISSIONS. SHE WILL HAVE HER SISTER OR FRIEND TO PROVIDE TRANSPORTATION WHEN DISCHARGED. [facility] PROVIDES HER HOME OXYGEN THERAPY BIOMED PROVIDED HER TRILOGY. PHARMACY- [facility] [address] DME- OXYGEN, TRILOGY, NEBULIZER, GLUCOMETER AND CANE. [address] DR ALCALA VISITED AND ASSESSED THE PATIENT. SHE IS NOT CLEARED FOR DISCHARGE TODAY. CONTINUES W/ IV STEROIDS AND IVAB. HE NOTED SHE IS DYSPNEIC WITH MINIMAL ACTIVITY. SHE IS TO RESUME HOME HEALTH WITH [facility] AT DISCHARGE. DCP- Discharge Planning Updated by [id number]: Alba Hobbs on 08/02/18 9:[address] 1020 RECEIVED TC FROM MACEY WITH [facility] [employer] [facility] [employer] REGARDING PATIENT'S ADMITTING DIAGNOSIS. UPDATE PROVIDED. PATIENT IS CURRENT W/ [facility]. CM TO FOLLOW FOR ASSISTANCE WITH DISCHARGE PLANNING. DCPIA - Discharge Planning Initial Assessment Updated by [id number]: Mayra Marrufo on 08/02/18 11:19 am * Is the patient Alert and Oriented? Yes * PCP ЕКАТЕРИНА VALENZUELA * Pharmacy [facility] [address] * Preadmission Environment Home Alone * ADLs Independent * Equipment Cane Nebulizer Oxygen * Other Equipment TRILOGY * List name and contact numbers for known caregivers / representatives who currently or will assist patient after discharge: FERCHO SHARMA, * Community resources currently utilized Home Health * Please name any agencies selected above. [facility] * Additional services required to return to the preadmission environment? No * Can the patient safely return to the preadmission environment? Yes * Has this patient been hospitalized within the prior 30 days at any hospital? Yes Coverage Notice Reviewer: [id number] Thierno Marrufo Notice Issued Date-Time: 08/05/2018 11:23 Notice Type: IM Discharge Notice Notice Delivered To: Patient Relationship to Patient: Self Clinical Pharmacy Technician Name: Delivery Method: HAND - Hand Delivered Luli Days: Prior Verbal Notification: Recipient Understood Notice: Yes Recipient Signature: Yes Med Rec Note Co-signed by Attending: Coverage Notice Comment: Last DP export: 08/05/18 10:48 a Patient Name: DARLINE HUDDLESTON Page 94985 at 1329 All edits/amendments must be made on the electronic document DICTATION DATE: 08/05/18 1328 AUTO MACHINIST: ESCOBAR 08/05/18 1328 RPT#: [id number] DC DATE: STATUS: ADM IN [facility] [address] [place] [address] END OF REPORT
--- NOTE | 2018-08-05 14:18 | MORECARE ---
CASE MANAGEMENT DISCHARGE SUMMARY PATIENT: DARLINE HUDDLESTON UNIT: [id number] ADM DATE: 08/01/18 AGE: 53 : 65 SEX: F ROOM/BED: D.1209 AUTHOR: NATALIYA SIERRA PHYSICIAN: REFERRING PHYSICIAN: VERONICA RODGERS MD DATE OF SERVICE: 08/05/18 Discharge Plan Patient Name: DARLINE HUDDLESTON Facility: [facility]:[place] : 1965 Planned Disposition: Home Hlth Svc w Plan Readm Anticipated Discharge Date: Discharge Date: Expected LOS: Initial Reviewer: [id number] Initial Review Date: 08/02/2018 Generated: 08/05/18 3:18 pm Comments DCP- Discharge Planning Updated by [id number]: Mayra Marrufo on 08/05/18 1:[address] Patient Name: DARLINE HUDDLESTON Admission Status: ER Accout number: [id number] Admission Date: 08-01-2018 : 1965 Admission Diagnosis: Attending: ANA MARIA, Current LOS: 4 Anticipated DC Date: Planned Disposition: Home Hlth Svc w Plan Readm Primary Insurance: MEDICARE A & B Discharge Planning Comments: CM SPOKE WITH DR. ALCALA AND HE STATES PATIENT IS READY FOR DC FROM HIS [place]. Flatwork Folder: Mayra Marrufo DCP- Discharge Planning Updated by [id number]: Mayra Marrufo on 08/05/18 12:[address] Patient Name: DARLINE HUDDLESTON Admission Status: ER Accout number: [id number] Admission Date: 08-01-2018 : 1965 Admission Diagnosis: Attending: ANA MARIA, Current LOS: 4 Anticipated DC Date: Planned Disposition: Home Hlth Svc w Plan Readm Primary Insurance: MEDICARE A & B Discharge Planning Comments: CM CALLED AND SPOKE WITH SOTERO AT [facility], SHE STATES PATIENT IS CURRENT WITH THEM AND SHE RECIEVES OT, PT AND NURSING. CM WILL FAX DC PAPERS TO [facility]. PATIENT CAN BE DC'D IF DR. ALCALA OKAYS HER DC TODAY. CM WILL FOLLOW AND ASSIST. Flatwork Folder: Mayra Marrufo DCP- Discharge Planning Updated by [id number]: Mayra Marrufo on 08/05/18 10:[address] Patient Name: DARLINE HUDDLESTON Admission Status: ER Accout number: [id number] Admission Date: 08-01-2018 : 1965 Admission Diagnosis: Attending: ANA MARIA, Current LOS: 4 Anticipated DC Date: Planned Disposition: Home Primary Insurance: MEDICARE A & B Discharge Planning Comments: PATIENT CHANGED HER MIND, STATES SHE WILL GO TO [facility] IF ACCEPTED. Flatwork Folder: Mayra Marrufo DCP- Discharge Planning Updated by [id number]: Mayra Marrufo on 08/05/18 10:[address] Patient Name: DARLINE HUDDLESTON Admission Status: ER Accout number: [id number] Admission Date: 08-01-2018 : 1965 Admission Diagnosis: Attending: ANA MARIA, Current LOS: 4 Anticipated DC Date: Planned Disposition: Home Primary Insurance: MEDICARE A & B Discharge Planning Comments: CM MET WITH PATIENT AND HER PLAN IS TO DC TO HOME AND RESUME WITH [facility]. PATIENT DOES NOT WANT [facility]. CM WILL FOLLOW AND ASSIST. Flatwork Folder: Mayra Marrufo DCP- Discharge Planning Updated by [id number]: Alba Hobbs on 08/04/18 3:[address] LATE ENTRY 1230 CM VISITED WITH THE PATIENT AT THE BEDSIDE. ADVISED SHE HAD DISCHARGE ORDERS FOR TODAY. SHE HAD NOT SEEN THE DOCTOR TODAY. PRIMARY NURSE TO CALL [facility] TO ADVISE OF D/C ORDER. WILL ALSO AWAIT PULMONARY VISIT. PATIENT IS SHORT OF BREATH TURNING IN BED. SPEAKING IN SHORT SENTENCES. HAS ONLY BEEN UP TO THE BATHROOM. SHE VOICES CONCERN BECAUSE SHE STILL FEELS SHORT OF BREATH. OXYGEN 2-3LITERS. SHE HAS HAD TWO RECENT READMISSIONS. SHE WILL HAVE HER SISTER OR FRIEND TO PROVIDE TRANSPORTATION WHEN DISCHARGED. [facility] PROVIDES HER HOME OXYGEN THERAPY BIOMED PROVIDED HER TRILOGY. PHARMACY- [facility] [address] DME- OXYGEN, TRILOGY, NEBULIZER, GLUCOMETER AND CANE. 15[address] DR ACLALA VISITED AND ASSESSED THE PATIENT. SHE IS NOT CLEARED FOR DISCHARGE TODAY. CONTINUES W/ IV STEROIDS AND IVAB. HE NOTED SHE IS DYSPNEIC WITH MINIMAL ACTIVITY. SHE IS TO RESUME HOME HEALTH WITH [facility] AT DISCHARGE. DCP- Discharge Planning Updated by [id number]: Alba Hobbs on 08/02/18 9:[address] 1020 RECEIVED TC FROM MACEY WITH [facility] REGARDING PATIENT'S ADMITTING DIAGNOSIS. UPDATE PROVIDED. PATIENT IS CURRENT W/ [facility]. CM TO FOLLOW FOR ASSISTANCE WITH DISCHARGE PLANNING. DCPIA - Discharge Planning Initial Assessment Updated by [email or web address]: Mayra Marrufo on 08/02/18 11:19 am * Is the patient Alert and Oriented? Yes * PCP ЕКАТЕРИНА VALENZUELA * [facility] [address] * Preadmission Environment Home Alone * ADLs Independent * Equipment Cane Nebulizer Oxygen * Other Equipment TRILOGY * List name and contact numbers for known caregivers / representatives who currently or will assist patient after discharge: FERCHO SHARMA, * Community resources currently utilized Home Health * Please name any agencies selected above. [facility] * Additional services required to return to the preadmission environment? No * Can the patient safely return to the preadmission environment? Yes * Has this patient been hospitalized within the prior 30 days at any hospital? Yes Coverage Notice Reviewer: [id number] - Mayra Marrufo Notice Issued Date-Time: 08/05/2018 11:23 Notice Type: IM Discharge Notice Notice Delivered To: Patient Relationship to Patient: Self Evp Business Development Name: Delivery Method: HAND - Hand Delivered Luli Days: Prior Verbal Notification: Recipient Understood Notice: Yes Recipient Signature: Yes Med Rec Note Co-signed by Attending: Coverage Notice Comment: Last DP export: 08/05/18 12:29 p Patient Name: DARLINE HUDDLESTON Page 36769 at 1418 All edits/amendments must be made on the electronic document DICTATION DATE: 08/05/181416 MILL TURNER: ESCOBAR 08/05/181416 RPT#: [id number] DC DATE: STATUS: ADM IN [facility] [address] [place] [address] END OF REPORT
--- NOTE | 2018-08-05 16:11 | MORECARE ---
CASE MANAGEMENT DISCHARGE SUMMARY PATIENT: DARLINE HUDDLESTON UNIT: [id number] ADM DATE: 08/01/18 AGE: 53 : 65 SEX: F ROOM/BED: D.1209 AUTHOR: NATALIYA SIERRA PHYSICIAN: REFERRING PHYSICIAN: VERONICA RODGERS MD DATE OF SERVICE: 08/05/18 Discharge Plan Patient Name: DARLINE HUDDLESTON Facility: [facility]:[place] : 1965 Planned Disposition: Home Hlth Svc w Plan Readm Anticipated Discharge Date: 08/05/18 Discharge Date: Expected LOS: 4 Initial Reviewer: [id number] Initial Review Date: 08/02/2018 Generated: 08/05/18 5:11 pm Comments DCP- Discharge Planning Updated by [id number]: Mayra Marrufo on 08/05/18 1:[address] Patient Name: DARLINE HUDDLESTON Admission Status: ER Accout number: [id number] Admission Date: 08-01-2018 : 1965 Admission Diagnosis: Attending: ANA MARIA, Current LOS: 4 Anticipated DC Date: Planned Disposition: Home Hlth Svc w Plan Readm Primary Insurance: MEDICARE A & B Discharge Planning Comments: CM SPOKE WITH DR. ALCALA AND HE STATES PATIENT IS READY FOR DC FROM HIS STAND POINT. Visual Merchandising Specialist: Mayra Marrufo DCP- Discharge Planning Updated by [id number]: Mayra Marrufo on 08/05/18 12:[address] Patient Name: DARLINE HUDDLESTON Admission Status: ER Accout number: [id number] Admission Date: 08-01-2018 : 1965 Admission Diagnosis: Attending: ANA MARIA, Current LOS: 4 Anticipated DC Date: Planned Disposition: Home Hlth Svc w Plan Readm Primary Insurance: MEDICARE A & B Discharge Planning Comments: CM CALLED AND SPOKE WITH SOTERO AT [facility], SHE STATES PATIENT IS CURRENT WITH THEM AND SHE RECIEVES OT, PT AND NURSING. CM WILL FAX DC PAPERS TO [facility]. PATIENT CAN BE DC'D IF DR. ALCALA OKAYS HER DC TODAY. CM WILL FOLLOW AND ASSIST. Visual Merchandising Specialist: Mayra Marrufo DCP- Discharge Planning Updated by [id number]: Mayra Marrufo on 08/05/18 10:[address] Patient Name: DARLINE HUDDLESTON Admission Status: ER Accout number: [id number] Admission Date: 08-01-2018 : 1965 Admission Diagnosis: Attending: ANA MARIA, Current LOS: 4 Anticipated DC Date: Planned Disposition: Home Primary Insurance: MEDICARE A & B Discharge Planning Comments: PATIENT CHANGED HER MIND, STATES SHE WILL GO TO [facility] IF ACCEPTED. Visual Merchandising Specialist: Mayra Niru DCP- Discharge Planning Updated by [id number]: Mayra Marrufo on 08/05/18 10:[address] Patient Name: DARLINE HUDDLESTON Admission Status: ER Accout number: [id number] Admission Date: 08-01-2018 : 1965 Admission Diagnosis: Attending: ANA MARIA, Current LOS: 4 Anticipated DC Date: Planned Disposition: Home Primary Insurance: MEDICARE A & B Discharge Planning Comments: CM MET WITH PATIENT AND HER PLAN IS TO DC TO HOME AND RESUME HH WITH [facility]. PATIENT DOES NOT WANT [facility]. CM WILL FOLLOW AND ASSIST. Visual Merchandising Specialist: Mayra Niru DCP- Discharge Planning Updated by [email or web address]: Alba Hobbs on 08/04/18 3:[address] LATE ENTRY 1230 CM VISITED WITH THE PATIENT AT THE BEDSIDE. ADVISED SHE HAD DISCHARGE ORDERS FOR TODAY. SHE HAD NOT SEEN THE DOCTOR TODAY. PRIMARY NURSE TO CALL [facility] TO ADVISE OF D/C ORDER. WILL ALSO AWAIT PULMONARY VISIT. PATIENT IS SHORT OF BREATH TURNING IN BED. SPEAKING IN SHORT SENTENCES. HAS ONLY BEEN UP TO THE BATHROOM. SHE VOICES CONCERN BECAUSE SHE STILL FEELS SHORT OF BREATH. OXYGEN 2-3LITERS. SHE HAS HAD TWO RECENT READMISSIONS. SHE WILL HAVE HER SISTER OR FRIEND TO PROVIDE TRANSPORTATION WHEN DISCHARGED. [facility] PROVID[facility] HER HOME OXYGEN THERAPY BIOMED PROVIDED HER TRILOGY. PHARMACY- [facility] [address] DME- OXYGEN, TRILOGY, NEBULIZER, GLUCOMETER AND CANE. 1547 DR ALCALA VISITED AND ASSESSED THE PATIENT. SHE IS NOT CLEARED FOR DISCHARGE TODAY. CONTINUES W/ IV STEROIDS AND IVAB. HE NOTED SHE IS DYSPNEIC WITH MINIMAL ACTIVITY. SHE IS TO RESUME HOME HEALTH WITH [facility] AT DISCHARGE. DCP- Discharge Planning Updated by [id number]: Alba Hobbs on 08/02/18 9:[address] 1020 RECEIVED TC FROM MACEY WITH [facility] REGARDING PATIENT'S ADMITTING DIAGNOSIS. UPDATE PROVIDED. PATIENT IS CURRENT W/ [facility]. CM TO FOLLOW FOR ASSISTANCE WITH DISCHARGE PLANNING. DCPIA - Discharge Planning Initial Assessment Updated by [id number]: Mayra Marrufo on 08/02/18 11:19 am * Is the patient Alert and Oriented? Yes * PCP ЕКАТЕРИНА VALENZUELA * Pharmacy [facility] [address] * Preadmission Environment Home Alone * ADLs Independent * Equipment Cane Nebulizer Oxygen * Other Equipment TRILOGY * List name and contact numbers for known caregivers / representatives who currently or will assist patient after discharge: FERCHO SHARMA, * Community resources currently utilized Home Health * Please name any agencies selected above. [facility] * Additional services required to return to the preadmission environment? No * Can the patient safely return to the preadmission environment? Yes * Has this patient been hospitalized within the prior 30 days at any hospital? Yes External Providers [facility] Next Contact Date: Service Request Date: Service Type: Resolution: Reviewer: Comments: Coverage Notice Reviewer: [id number] Thierno Marrufo Notice Issued Date-Time: 08/05/2018 11:23 Notice Type: IM Discharge Notice Notice Delivered To: Patient Relationship to Patient: Self Casing Man Name: Delivery Method: HAND - Hand Delivered Luli Days: Prior Verbal Notification: Recipient Understood Notice: Yes Recipient Signature: Yes Med Rec Note Co-signed by Attending: Coverage Notice Comment: Last DP export: 08/05/18 1:18 p Patient Name: DARLINE HUDDLESTON Page 93551 at 1611 All edits/amendments must be made on the electronic document DICTATION DATE: 08/05/18 1611 RETAIL COSMETICS SALES COUNTER MANAGER: ESCOBAR 08/05/18 1611 RPT#: [id number] DC DATE: STATUS: ADM IN [facility] [address] [place] [address] END OF REPORT
--- NOTE | 2018-08-05 17:09 | NUR ---
PATIENT UP AMBULATING IN ROOM, SKIN W/D TO TOUCH, COLOR PINK, RESP. REGULAR AND EVEN AT 20. IV RT. FOREARM REMOVED. DISCHARGE INSTRUCTIONS GIVEN TO PATIENT AND SHE VERBALIZED UNDERSTANDING OF DISCHARGE INSTRUCTION. BS CHECKED BEFORE DISCHARGE AND BS 327 AND 20 UNIT INSULIN GIVEN . PATIENT WAITING FOR RIDE.
--- NOTE | 2018-08-05 17:57 | NUR ---
PATIENT DISCHARGE WITH FRIEND VIA PRIVATE VEHICLE.
--- NOTE | 2018-08-06 08:13 | MORECARE ---
CASE MANAGEMENT DISCHARGE SUMMARY PATIENT: DARLINE HUDDLESTON UNIT: [id number] ADM DATE: 08/01/18 AGE: 53 : 65 SEX: F ROOM/BED: D.1209 AUTHOR: NATALIYA SIERRA PHYSICIAN: REFERRING PHYSICIAN: VERONICA RODGERS MD DATE OF SERVICE: 08/06/18 Discharge Plan Patient Name: DARLINE HUDDLESTON Facility: [facility]:[place] : 1965 Planned Disposition: Home Hlth Svc w Plan Readm Anticipated Discharge Date: 08/05/18 Discharge Date: 08/05/2018 Expected LOS: 4 Initial Reviewer: [id number] Initial Review Date: 08/02/2018 Generated: 08/06/18 9:12 am Comments DCP- Discharge Planning Updated by [id number]: Mayra Marrufo on 08/05/18 1:[address] Patient Name: DARLINE HUDDLESTON Admission Status: ER Accout number: [id number] Admission Date: 08-01-2018 : 1965 Admission Diagnosis: Attending: ANA MARIA, Current LOS: 4 Anticipated DC Date: Planned Disposition: Home Hlth Svc w Plan Readm Primary Insurance: MEDICARE A & B Discharge Planning Comments: CM SPOKE WITH DR. ALCALA AND HE STATES PATIENT IS READY FOR DC FROM HIS STAND POINT. Audio Tape Librarian: Mayra Marrufo DCP- Discharge Planning Updated by [id number]: Mayra Marrufo on 08/05/18 12:[address] Patient Name: DARLINE HUDDLESTON Admission Status: ER Accout number: [id number] Admission Date: 08-01-2018 : 1965 Admission Diagnosis: Attending: ANA MARIA, Current LOS: 4 Anticipated DC Date: Planned Disposition: Home Hlth Svc w Plan Readm Primary Insurance: MEDICARE A & B Discharge Planning Comments: CM CALLED AND SPOKE WITH SOTERO AT [facility], SHE STATES PATIENT IS CURRENT WITH THEM AND SHE RECIEVES OT, PT AND NURSING. CM WILL FAX DC PAPERS TO [facility]. PATIENT CAN BE DC'D IF DR. ALCALA OKAYS HER DC TODAY. CM WILL FOLLOW AND ASSIST. Audio Tape Librarian: Mayra Marrufo DCP- Discharge Planning Updated by [id number]: Mayra Marrufo on 08/05/18 10:[address] Patient Name: DARLINE HUDDLESTON Admission Status: ER Accout number: [id number] Admission Date: 08-01-2018 : 1965 Admission Diagnosis: Attending: ANA MARIA, Current LOS: 4 Anticipated DC Date: Planned Disposition: Home Primary Insurance: MEDICARE A & B Discharge Planning Comments: PATIENT CHANGED HER MIND, STATES SHE WILL GO TO [facility] IF ACCEPTED. Audio Tape Librarian: Mayra Marrufo DCP- Discharge Planning Updated by [email or web address]: Mayra Marrufo on 08/05/18 10:[address] Patient Name: DARLINE HUDDLESTON Admission Status: ER Accout number: [id number] Admission Date: 08-01-2018 : 1965 Admission Diagnosis: Attending: ANA MARIA, Current LOS: 4 Anticipated DC Date: Planned Disposition: Home Primary Insurance: MEDICARE A & B Discharge Planning Comments: CM MET WITH PATIENT AND HER PLAN IS TO DC TO HOME AND RESUME HH WITH [facility]. PATIENT DOES NOT WANT [facility]. CM WILL FOLLOW AND ASSIST. Audio Tape Librarian: Mayra Marrufo DCP- Discharge Planning Updated by [id number]: Alba Hobbs on 08/04/18 3:[address] LATE ENTRY 1230 CM VISITED WITH THE PATIENT AT THE BEDSIDE. ADVISED SHE HAD DISCHARGE ORDERS FOR TODAY. SHE HAD NOT SEEN THE DOCTOR TODAY. PRIMARY NURSE TO CALL [facility] TO ADVISE OF D/C ORDER. WILL ALSO AWAIT PULMONARY VISIT. PATIENT IS SHORT OF BREATH TURNING IN BED. SPEAKING IN SHORT SENTENCES. HAS ONLY BEEN UP TO THE BATHROOM. SHE VOICES CONCERN BECAUSE SHE STILL FEELS SHORT OF BREATH. OXYGEN 2-3LITERS. SHE HAS HAD TWO RECENT READMISSIONS. SHE WILL HAVE HER SISTER OR FRIEND TO PROVIDE TRANSPORTATION WHEN DISCHARGED. [facility] PROVID[facility] HER [facility] OXYGEN THERAPY BIOMED PROVIDED HER TRILOGY. PHARMACY- [facility] [address] DME- OXYGEN, TRILOGY, NEBULIZER, GLUCOMETER AND CANE. 50[address] DR ALCALA VISITED AND ASSESSED THE PATIENT. SHE IS NOT CLEARED FOR DISCHARGE TODAY. CONTINUES W/ IV STEROIDS AND IVAB. HE NOTED SHE IS DYSPNEIC WITH MINIMAL ACTIVITY. SHE IS TO RESUME HOME HEALTH WITH [facility] AT DISCHARGE. DCP- Discharge Planning Updated by [id number]: Alba Hobbs on 08/02/18 9:[address] 1020 RECEIVED TC FROM MACEY WITH [facility] REGARDING PATIENT'S ADMITTING DIAGNOSIS. UPDATE PROVIDED. PATIENT IS CURRENT W/ [facility]. CM TO FOLLOW FOR ASSISTANCE WITH DISCHARGE PLANNING. DCPIA - Discharge Planning Initial Assessment Updated by [id number]: Mayra Marrufo on 08/02/18 11:19 am * Is the patient Alert and Oriented? Yes * PCP ЕКАТЕРИНА VALENZUELA * Pharmacy [facility] [address] * Preadmission Environment Home Alone * ADLs Independent * Equipment Cane Nebulizer Oxygen * Other Equipment TRILOGY * List name and contact numbers for known caregivers / representatives who currently or will assist patient after discharge: FERCHO SHARMA, * Community resources currently utilized Home Health * Please name any agencies selected above. [facility] * Additional services required to return to the preadmission environment? No * Can the patient safely return to the preadmission environment? Yes * Has this patient been hospitalized within the prior 30 days at any hospital? Yes Coverage Notice Reviewer: [id number] - Mayra Marrufo Notice Issued Date-Time: 08/05/2018 11:23 Notice Type: IM Discharge Notice Notice Delivered To: Patient Relationship to Patient: Self Steam Engineer Name: Delivery Method: HAND - Hand Delivered Luli Days: Prior Verbal Notification: Recipient Understood Notice: Yes Recipient Signature: Yes Med Rec Note Co-signed by Attending: Coverage Notice Comment: Last DP export: 08/05/18 3:11 p Patient Name: DARLINE HUDDLESTON Page 32569 at 0813 All edits/amendments must be made on the electronic document DICTATION DATE: 08/06/18811 FORENSIC ANALYST: ESCOBAR 08/06/18811 RPT#: [id number] DC DATE:08/05/18 STATUS: DIS IN [facility] [address] [facility] [place] [address] END OF REPORT
== END 2018-08-05 17:59 | disposition home health service (06) | DRG 189 ==
LOC: D.ER 17:37 → OBSVTIME 21:50 → D.M3 21:50 → D.EDHOLD 21:50 → D.M3 22:52
PROVIDERS: Family Medicine; ADMIT Family Medicine
DX: J96.21 Acute and chronic respiratory failure with hypoxia (principal); I50.21 Acute systolic (congestive) heart failure; J44.1 Chronic obstructive pulmonary disease with (acute) exacerbation; L03.116 Cellulitis of left lower limb; Z68.43 Body mass index [BMI] 50.0-59.9, adult; N17.9 Acute kidney failure, unspecified; J44.0 Chronic obstructive pulmonary disease with (acute) lower respiratory infection; E66.01 Morbid (severe) obesity due to excess calories; G47.33 Obstructive sleep apnea (adult) (pediatric); E11.9 Type 2 diabetes mellitus without complications; I11.0 Hypertensive heart disease with heart failure; E03.9 Hypothyroidism, unspecified; J20.9 Acute bronchitis, unspecified; D64.9 Anemia, unspecified; Z87.891 Personal history of nicotine dependence

== ENCOUNTER 2018-10-20 20:40 | Inpatient (IN) | payer MEDICARE ==
[~2018-10-20 20:40] MED LIST changes: +CLEOCIN HCL300 MG PO; +DALIRESP500 MCG PO; +ZETIA10 MG PO
[2018-10-20 21:30] VITALS: BP 125/69
[2018-10-20 21:49] LABS: BASOPHILS 0.1 % (0-2); EOSINOPHILS 0.1 % (0-7); HEMATOCRIT 39.3 % (36.0-48.0); HEMOGLOBIN 12.3 g/dL (12-16); IMMATURE GRANULOCYTES 0.3 % (0-5); LYMPHOCYTES 3.7 % (15-50); MCH 27.1 pg (26.0-34.0); MCHC 31.3 g/dL (31.0-37.0); MCV 86.6 fL (80.0-100.0); MEAN PLATELET VOLUME 11.6 fL (7.4-10.4); MONOCYTES 5.9 % (2-11); NEUTROPHILS 89.9 % (40-80); RBC 4.54 10x6/uL (4.00-5.40); WBC 17.1 10x3/uL (4.8-10.8)
[2018-10-20 21:59] LABS: APTT 35.3 SECONDS (22.8-39.4); INR 1.16 (0.85-1.17); PROTIME 14.3 SECONDS (11.6-15.0)
[2018-10-20 22:00] LABS: D-DIMER-QUANTITATIVE 1.9 ug/mLFEU (0.20-0.54)
[2018-10-20 22:05] LABS: ALBUMIN 3.3 g/dL (3.4-5.0); ALKALINE PHOSPHATASE 104 U/L (46-116); ALT (SGPT) 138 U/L (10-68); BILIRUBIN - TOTAL 0.42 mg/dL (0.2-1.3); CALC OSMOLALITY 282 mosm/kg (275-300); CALCIUM 8.6 mg/dL (8.5-10.1); CHLORIDE - SERUM 100 mmol/L (98-107); CREATININE - SERUM 0.9 mg/dL (0.6-1.3); POTASSIUM - SERUM 4.2 mmol/L (3.5-5.1); PROTEIN - SERUM 7.5 g/dL (6.4-8.2); SODIUM 140 mmol/L (136-145); UREA NITROGEN 14 mg/dL (7-18); eGFR NON AFRICAN AMERICAN 69 mL/min (90-120)
[2018-10-20 22:08] LABS: PLATELET COUNT 144 10x3/uL (130-400)
[2018-10-20 22:09] LABS: GLUCOSE 159 mg/dL (74-106)
[2018-10-20 22:09] LABS: APPEARANCE CLEAR (CLEAR); BILIRUBIN NEGATIVE (NEGATIVE); COLOR YELLOW (YELLOW); GLUCOSE NEGATIVE (NEGATIVE); KETONE NEGATIVE (NEGATIVE); NITRITE POSITIVE (NEGATIVE); PROTEIN NEGATIVE (NEGATIVE); UROBILINOGEN NORMAL (NORMAL)
[2018-10-20 22:10] LABS: BACTERIA MODERATE /hpf (NONE SEEN); EPITHELIAL CELLS 0-5 /hpf (0-5); RED CELLS - URINE 0-5 /hpf (0-5)
[2018-10-20 22:17] LABS: CKMB 0.1 U/L (0.0-3.6); CREATINE KINASE 64 UL (21-215)
[2018-10-20 22:19] LABS: TROPONIN-I < 0.017 ng/mL (0.000-0.060)
[2018-10-20 23:02] VITALS: BP 117/86
[2018-10-21] VITALS (14 sets, daily range): BP systolic 88–137; BP diastolic 39–105; BMI 51.0
[2018-10-21 06:23] LABS: ANION GAP 10.7 mmol/L (8-16); BILIRUBIN - TOTAL 0.41 mg/dL (0.2-1.3); CALCIUM 8.4 mg/dL (8.5-10.1); CARBON DIOXIDE 29.4 mmol/L (21.0-32.0); CREATININE - SERUM 0.9 mg/dL (0.6-1.3); POTASSIUM - SERUM 4.1 mmol/L (3.5-5.1); PROTEIN - SERUM 7.1 g/dL (6.4-8.2)
[2018-10-21 07:07] LABS: HEMATOCRIT 38.7 % (36.0-48.0); MCV 87.2 fL (80.0-100.0); MEAN PLATELET VOLUME 11.5 fL (7.4-10.4); PLATELET COUNT 149 10x3/uL (130-400); RBC 4.44 10x6/uL (4.00-5.40); RDW 15.3 % (11.5-14.5); WBC 22.6 10x3/uL (4.8-10.8)
[2018-10-21 08:36] LABS: LYMPHOCYTES 2 % (15-50); MONOCYTES 2 % (2-11); NEUTROPHILS 94 % (40-80)
[2018-10-21 09:26] LABS: PLATELET ESTIMATE NORMAL
[2018-10-21 17:44] LABS: T4 THYROXIN - FREE 1.2 ng/dL (0.76-1.46); THYROID STIMULATING HORMONE 0.15 uIU/mL (0.36-3.74)
[2018-10-22 05:21] VITALS: BP 100/52
[2018-10-22 05:24] LABS: BASOPHILS 0.1 % (0-2); EOSINOPHILS 0.2 % (0-7); HEMATOCRIT 36.7 % (36.0-48.0); HEMOGLOBIN 11.2 g/dL (12-16); IMMATURE GRANULOCYTES 0.4 % (0-5); LYMPHOCYTES 2.1 % (15-50); MCH 26.8 pg (26.0-34.0); MCHC 30.5 g/dL (31.0-37.0); MCV 87.8 fL (80.0-100.0); MEAN PLATELET VOLUME 12.4 fL (7.4-10.4); NEUTROPHILS 93.2 % (40-80); PLATELET COUNT 127 10x3/uL (130-400); RBC 4.18 10x6/uL (4.00-5.40); RDW 15.4 % (11.5-14.5)
[2018-10-22 05:51] LABS: ALBUMIN 2.9 g/dL (3.4-5.0); ALKALINE PHOSPHATASE 108 U/L (46-116); ALT (SGPT) 144 U/L (10-68); BILIRUBIN - TOTAL 0.96 mg/dL (0.2-1.3); CALCIUM 7.9 mg/dL (8.5-10.1); CARBON DIOXIDE 26.1 mmol/L (21.0-32.0); CHLORIDE - SERUM 104 mmol/L (98-107); CREATININE - SERUM 0.8 mg/dL (0.6-1.3); POTASSIUM - SERUM 4.1 mmol/L (3.5-5.1); PROTEIN - SERUM 6.3 g/dL (6.4-8.2); SODIUM 140 mmol/L (136-145); eGFR NON AFRICAN AMERICAN 79 mL/min (90-120)
[2018-10-22 06:00] LABS: WBC 15.4 10x3/uL (4.8-10.8)
[2018-10-22 06:07] LABS: CALC OSMOLALITY 284 mosm/kg (275-300); GLUCOSE 162 mg/dL (74-106); UREA NITROGEN 18 mg/dL (7-18)
[2018-10-22 09:37] VITALS: BP 102/51
[2018-10-22 14:03] VITALS: BP 90/66
[2018-10-22 15:05] VITALS: BMI 50.8
[2018-10-22 17:07] VITALS: BP 108/62
[2018-10-22 20:00] VITALS: BP 106/54
[2018-10-23 04:00] VITALS: BP 120/40; BP 128/61
[2018-10-23 05:14] LABS: BASOPHILS 0.2 % (0-2); EOSINOPHILS 5.5 % (0-7); HEMATOCRIT 37.7 % (36.0-48.0); HEMOGLOBIN 11.5 g/dL (12-16); IMMATURE GRANULOCYTES 0.3 % (0-5); LYMPHOCYTES 15.7 % (15-50); MCHC 30.5 g/dL (31.0-37.0); MCV 88.5 fL (80.0-100.0); MEAN PLATELET VOLUME 11.1 fL (7.4-10.4); MONOCYTES 7.8 % (2-11); NEUTROPHILS 70.5 % (40-80); PLATELET COUNT 101 10x3/uL (130-400); RBC 4.26 10x6/uL (4.00-5.40); RDW 15.6 % (11.5-14.5); WBC 6.4 10x3/uL (4.8-10.8)
[2018-10-23 05:34] LABS: ALBUMIN 2.7 g/dL (3.4-5.0); ALKALINE PHOSPHATASE 141 U/L (46-116); ALT (SGPT) 113 U/L (10-68); BILIRUBIN - TOTAL 0.48 mg/dL (0.2-1.3); CALCIUM 8.4 mg/dL (8.5-10.1); CARBON DIOXIDE 29.7 mmol/L (21.0-32.0); CHLORIDE - SERUM 106 mmol/L (98-107); CREATININE - SERUM 0.6 mg/dL (0.6-1.3); GLUCOSE 137 mg/dL (74-106); PROTEIN - SERUM 6.3 g/dL (6.4-8.2); SODIUM 142 mmol/L (136-145); VANCOMYCIN - TROUGH 0.8 ug/mL (10.0-20.0); eGFR NON AFRICAN AMERICAN > 90 mL/min (90-120)
[2018-10-23 05:39] LABS: CALC OSMOLALITY 284 mosm/kg (275-300); UREA NITROGEN 13 mg/dL (7-18)
[2018-10-23 08:45] VITALS: BP 95/49
[2018-10-23 12:45] VITALS: BP 128/53
[2018-10-23 17:06] VITALS: BP 105/51
[2018-10-23 20:00] VITALS: BP 126/56
[2018-10-24] VITALS: BP 114/55
[2018-10-24 04:00] VITALS: BP 112/64
[2018-10-24 06:51] LABS: HEMOGLOBIN 10.3 g/dL (12-16); MCH 26.8 pg (26.0-34.0); MCHC 30.3 g/dL (31.0-37.0); MCV 88.5 fL (80.0-100.0); MEAN PLATELET VOLUME 11.9 fL (7.4-10.4); PLATELET COUNT 110 10x3/uL (130-400); RBC 3.84 10x6/uL (4.00-5.40); RDW 15.5 % (11.5-14.5)
[2018-10-24 06:52] LABS: ALBUMIN 2.6 g/dL (3.4-5.0); ALKALINE PHOSPHATASE 177 U/L (46-116); ALT (SGPT) 99 U/L (10-68); BILIRUBIN - TOTAL 0.34 mg/dL (0.2-1.3); CALC OSMOLALITY 292 mosm/kg (275-300); CALCIUM 8.4 mg/dL (8.5-10.1); CARBON DIOXIDE 28.7 mmol/L (21.0-32.0); CHLORIDE - SERUM 108 mmol/L (98-107); CREATININE - SERUM 0.7 mg/dL (0.6-1.3); GLUCOSE 116 mg/dL (74-106); POTASSIUM - SERUM 3.9 mmol/L (3.5-5.1); PROTEIN - SERUM 5.9 g/dL (6.4-8.2); SODIUM 146 mmol/L (136-145); UREA NITROGEN 16 mg/dL (7-18); eGFR NON AFRICAN AMERICAN > 90 mL/min (90-120)
[2018-10-24 06:54] LABS: WBC 8.5 10x3/uL (4.8-10.8)
[2018-10-24 08:05] LABS: EOSINOPHILS 4 % (0-7); LYMPHOCYTES 5 % (15-50); MONOCYTES 4 % (2-11); NEUTROPHILS 76 % (40-80); PLATELET ESTIMATE NORMAL; PLATELET MORPHOLOGY PLT CLUMPS PRESENT
[2018-10-24 08:44] VITALS: BP 155/83
--- NOTE | 2018-10-24 11:15 | MORECARE ---
CASE MANAGEMENT DISCHARGE SUMMARY PATIENT: DARLINE HUDDLESTON UNIT: [id number] ADM DATE: 10/21/18 AGE: 53 : 65 SEX: F ROOM/BED: D.2225 AUTHOR: NATALIYA SIERRA PHYSICIAN: REFERRING PHYSICIAN: MIL FUNEZ MD DATE OF SERVICE: 10/24/18 Discharge Plan Patient Name: DARLINE HUDDLESTON Facility: [facility]:[place] : 1965 Planned Disposition: Home with Home Health Anticipated Discharge Date: Discharge Date: Expected LOS: Initial Reviewer: [id number] Initial Review Date: 10/24/2018 Generated: 10/24/18 12:15 pm Coverage Notice Reviewer: [id number] - Yomaira Lenz Notice Issued Date-Time: 10/24/2018 10:09 Notice Type: Patient Choice Letter Notice Delivered To: Patient Relationship to Patient: Franchise Broker Name: Delivery Method: HAND - Hand Delivered Luli Days: Prior Verbal Notification: Recipient Understood Notice: Yes Recipient Signature: Yes Med Rec Note Co-signed by Attending: Coverage Notice Comment: TEREZA SIGNED FOR [facility] Patient Name: DARLINE HUDDLESTON Page 01812 at 1115 All edits/amendments must be made on the electronic document DICTATION DATE: 10/24/18 1115 MOTH PROOFER: ESCOBAR 10/24/18 1115 RPT#: [id number] DC DATE: STATUS: ADM IN [facility] [address] [place] [address] END OF REPORT
--- NOTE | 2018-10-24 11:25 | MORECARE ---
CASE MANAGEMENT DISCHARGE SUMMARY PATIENT: DARLINE HUDDLESTON UNIT: [id number] ADM DATE: 10/21/18 AGE: 53 : 65 SEX: F ROOM/BED: D.2225 AUTHOR: NATALIYA SIERRA PHYSICIAN: REFERRING PHYSICIAN: MIL FUNEZ MD DATE OF SERVICE: 10/24/18 Discharge Plan Patient Name: DARLINE HUDDLESTON Facility: [facility]:[place] : 1965 Planned Disposition: Home with Home Health Anticipated Discharge Date: Discharge Date: Expected LOS: Initial Reviewer: [id number] Initial Review Date: 10/24/2018 Generated: 10/24/18 12:25 pm DCPIA - Discharge Planning Initial Assessment Updated by [id number]: Yomaira Lenz on 10/24/18 11:16 am * Is the patient Alert and Oriented? Yes * How many steps to enter\exit or inside your home? 5/0 * PCP Lisa Mack * Pharmacy [facility] [address] * Preadmission Environment Home Alone * ADLs Independent * Equipment Cane Glucometer Nebulizer Other Oxygen * Other Equipment Portable oxygen Trilogy * List name and contact numbers for known caregivers / representatives who currently or will assist patient after discharge: Christina Hardik - [phone] * Verbal permission to speak to the caregivers and representatives has been obtained from the patient. Yes * Community resources currently utilized Home Health * Please name any agencies selected above. [facility] * Additional services required to return to the preadmission environment? No * Can the patient safely return to the preadmission environment? Yes * Has this patient been hospitalized within the prior 30 days at any hospital? No Coverage Notice Reviewer: [id number] - Yomaira Lenz Notice Issued Date-Time: 10/24/2018 10:09 Notice Type: Patient Choice Letter Notice Delivered To: Patient Relationship to Patient: Metal Off Bearer Name: Delivery Method: HAND - Hand Delivered Luli Days: Prior Verbal Notification: Recipient Understood Notice: Yes Recipient Signature: Yes Med Rec Note Co-signed by Attending: Coverage Notice Comment: TEREZA SIGNED FOR [facility] Last DP export: 10/24/18 10:15 a Patient Name: DARLINE HUDDLESTON Page 16390 at 1125 All edits/amendments must be made on the electronic document DICTATION DATE: 10/24/181123 WEB ASSISTANT: ESCOBAR 10/24/181123 RPT#: [id number] DC DATE: STATUS: ADM IN [facility] [address] [place] [address] END OF REPORT
--- NOTE | 2018-10-24 11:32 | MORECARE ---
CASE MANAGEMENT DISCHARGE SUMMARY PATIENT: DARLINE HUDDLESTON UNIT: [id number] ADM DATE: 10/21/18 AGE: 53 : 65 SEX: F ROOM/BED: D.2225 AUTHOR: RIGO,DOC PHYSICIAN: REFERRING PHYSICIAN: MIL FUNEZ MD DATE OF SERVICE: 10/24/18 Discharge Plan Patient Name: DARLINE HUDDLESTON Facility: [facility]:[place] : 1965 Planned Disposition: Home with Home Health Anticipated Discharge Date: Discharge Date: Expected LOS: Initial Reviewer: [email or web address] Initial Review Date: 10/24/2018 Generated: 10/24/18 12:32 pm Comments DCP- Discharge Planning Updated by [id number]: Yomaira Lenz on 10/24/18 10:[address] Patient Name: DARLINE HUDDLESTON Admission Status: ER Accout number: [id number] Admission Date: 10-21-2018 : 1965 Admission Diagnosis: Attending: MIL FUNEZ Current LOS: 3 Anticipated DC Date: Planned Disposition: Home with Home Health Primary Insurance: MEDICARE A & B Discharge Planning Comments: CM met with patient to complete initial dc planning assessment. CM educated patient on the CM role and verbal consent given by patient to complete assessment. Patient lives at home alone. At discharge patient plans to return and feels this is a safe discharge. CM discussed availability of home health, rehab services, and medical equipment. Patient denied known discharge needs at this time. States she has [facility] and will resume them on discharge. I spoke with Angela and they will resume on discharge, clinical faxed. She gets her oxygen supplies from [employer] and her Trilogy from [employer]. CM will continue to follow and will assist as needed with dc plans/needs. Events Manager: Yomaira Lenz DCPIA - Discharge Planning Initial Assessment Updated by [id number]: Yomaira Lenz on 10/24/18 11:16 am * Is the patient Alert and Oriented? Yes * How many steps to enter\exit or inside your home? 5/0 * PCP Lisa Mack * Pharmacy [facility] on [address] * Preadmission Environment Home Alone * ADLs Independent * Equipment Cane Glucometer Nebulizer Other Oxygen * Other Equipment Portable oxygen Trilogy * List name and contact numbers for known caregivers / representatives who currently or will assist patient after discharge: Christina Dye - [phone] * Verbal permission to speak to the caregivers and representatives has been obtained from the patient. Yes * Community resources currently utilized Home Health * Please name any agencies selected above. [facility] * Additional services required to return to the preadmission environment? No * Can the patient safely return to the preadmission environment? Yes * Has this patient been hospitalized within the prior 30 days at any hospital? No External Providers External Provider: [facility] Next Contact Date: Service Request Date: Service Type: Resolution: Reviewer: Comments: Coverage Notice Reviewer: [id number] Thierno Lenz Notice Issued Date-Time: 10/24/2018 10:09 Notice Type: Patient Choice Letter Notice Delivered To: Patient Relationship to Patient: Tiltrotor Crew Chief Name: Delivery Method: HAND - Hand Delivered Luli Days: Prior Verbal Notification: Recipient Understood Notice: Yes Recipient Signature: Yes Med Rec Note Co-signed by Attending: Coverage Notice Comment: TEREZA SIGNED FOR [facility] Last DP export: 10/24/18 10:25 a Patient Name: DARLINE HUDDLESTON Page 08370 at 1132 All edits/amendments must be made on the electronic document DICTATION DATE: 10/24/18 1132 SENIOR ENGINEERING ASSOCIATE: ESCOBAR 10/24/18 1132 RPT#: [id number] DC DATE: STATUS: ADM IN [facility] [address] [place] [address] END OF REPORT
[2018-10-24] MEDS ORDERED: FLORAJEN3 CAPS460 MG PO (11:48)
[2018-10-24] MEDS ORDERED: PROTONIX40 MG PO (11:48)
[2018-10-24] MEDS ORDERED: COLACE100 MG PO (11:48)
[2018-10-24] MEDS ORDERED: LEVAQUIN750 MG PO (11:49)
--- NOTE | 2018-10-24 13:16 | MORECARE ---
CASE MANAGEMENT DISCHARGE SUMMARY PATIENT: DARLINE HUDDLESTON UNIT: [id number] ADM DATE: 10/21/18 AGE: 53 : 65 SEX: F ROOM/BED: D.2225 AUTHOR: RIGODOC PHYSICIAN: REFERRING PHYSICIAN: MIL FUNEZ MD DATE OF SERVICE: 10/24/18 Discharge Plan Patient Name: DARLINE HUDDLESTON Facility: [facility]:[place] : 1965 Planned Disposition: Home with Home Health Anticipated Discharge Date: Discharge Date: Expected LOS: Initial Reviewer: [email or web address] Initial Review Date: 10/24/2018 Generated: 10/24/18 2:16 pm Comments DCP- Discharge Planning Updated by [email or web address]: Yomaira Lenz on 10/24/18 12:[address] Patient Name: DARLINE HUDDLESTON Encounter No: [id number] : 1965 Primary Insurance: MEDICARE A & B Anticipated DC Date: Planned Disposition: Home with Home Health External Planned Provider: : DCP follow-up note: Patient and family in agreement with discharge plan. No changes to plan. Angela at [facility] notified of discharge, clinical faxed. Case management will follow and assist as needed. Yomaira Lenz DCP- Discharge Planning Updated by [id number]: Yomaira Lenz on 10/24/18 10:[address] Patient Name: DARLINE HUDDLESTON Admission Status: ER Accout number: [id number] Admission Date: 10-21-2018 : 1965 Admission Diagnosis: Attending: MIL FUNEZ Current LOS: 3 Anticipated DC Date: Planned Disposition: Home with Home Health Primary Insurance: MEDICARE A & B Discharge Planning Comments: CM met with patient to complete initial dc planning assessment. CM educated patient on the CM role and verbal consent given by patient to complete assessment. Patient lives at home alone. At discharge patient plans to return and feels this is a safe discharge. CM discussed availability of home health, rehab services, and medical equipment. Patient denied known discharge needs at this time. States she has [facility] and will resume them on discharge. I spoke with Angela and they will resume on discharge, clinical faxed. She gets her oxygen supplies from [employer] and her Trilogy from [employer]. CM will continue to follow and will assist as needed with dc plans/needs. Development Manager: Yomaira Lenz DCPIA - Discharge Planning Initial Assessment Updated by [email or web address]: Yomaira Lenz on 10/24/18 11:16 am * Is the patient Alert and Oriented? Yes * How many steps to enter\exit or inside your home? 5/0 * PCP Lisa Mack * Pharmacy [facility] on [address] * Preadmission Environment Home Alone * ADLs Independent * Equipment Cane Glucometer Nebulizer Other Oxygen * Other Equipment Portable oxygen Trilogy * List name and contact numbers for known caregivers / representatives who currently or will assist patient after discharge: Christina Dye - [phone] * Verbal permission to speak to the caregivers and representatives has been obtained from the patient. Yes * Community resources currently utilized Home Health * Please name any agencies selected above. [facility] * Additional services required to return to the preadmission environment? No * Can the patient safely return to the preadmission environment? Yes * Has this patient been hospitalized within the prior 30 days at any hospital? No Coverage Notice Reviewer: [email or web address] Thierno Lenz Notice Issued Date-Time: 10/24/2018 10:09 Notice Type: Patient Choice Letter Notice Delivered To: Patient Relationship to Patient: Roll Line Operator Name: Delivery Method: HAND - Hand Delivered Luli Days: Prior Verbal Notification: Recipient Understood Notice: Yes Recipient Signature: Yes Med Rec Note Co-signed by Attending: Coverage Notice Comment: TEREZA SIGNED FOR [facility] Reviewer: [id number] Thierno Lenz Notice Issued Date-Time: 10/24/2018 13:08 Notice Type: IM Discharge Notice Notice Delivered To: Patient Relationship to Patient: Roll Line Operator Name: Delivery Method: HAND - Hand Delivered Luli Days: Prior Verbal Notification: Recipient Understood Notice: Yes Recipient Signature: Yes Med Rec Note Co-signed by Attending: Coverage Notice Comment: IMM explained, signed, given, copy placed in MR Last DP export: 10/24/18 10:32 a Patient Name: DARLINE HUDDLESTON Page [phone] at 1316 All edits/amendments must be made on the electronic document DICTATION DATE: 10/24/181315 CASHIER CLERK: DM 10/24/181315 RPT#: [id number] DC DATE: STATUS: ADM IN [facility] [address] [place] [address] END OF REPORT
== END 2018-10-24 16:29 | disposition home health service (06) | DRG 871 ==
LOC: D.ER 20:40 → D.EDHOLD 10-21 04:26 → D.MS 10-21 10:28
PROVIDERS: Family Medicine; ADMIT Internal Medicine Nephrology
DX: A41.9 Sepsis, unspecified organism (principal); J96.01 Acute respiratory failure with hypoxia; N39.0 Urinary tract infection, site not specified; L03.116 Cellulitis of left lower limb; Z68.43 Body mass index [BMI] 50.0-59.9, adult; R65.20 Severe sepsis without septic shock; E11.65 Type 2 diabetes mellitus with hyperglycemia; I10 Essential (primary) hypertension; J44.9 Chronic obstructive pulmonary disease, unspecified; E66.9 Obesity, unspecified; F32.9 Major depressive disorder, single episode, unspecified; E86.9 Volume depletion, unspecified

== ENCOUNTER 2019-06-25 09:26 | Emergency (ER) | payer MEDICARE ==
[~2019-06-25] VITALS: Ht 157.5 cm; Wt 122.7 kg
[~2019-06-25 09:26] MED LIST changes: +FLORAJEN3 CAPS460 MG PO; +PROTONIX40 MG PO
[2019-06-25 09:28] VITALS: Ht 157.5 cm; Wt 122.7 kg
[2019-06-25 10:10] LABS: BASOPHILS 0.4 % (0-2); EOSINOPHILS 1.8 % (0-7); HEMATOCRIT 42.4 % (36.0-48.0); IMMATURE GRANULOCYTES 0.4 % (0-5); LYMPHOCYTES 24.9 % (15-50); MCH 27.5 pg (26.0-34.0); MCHC 30.7 g/dL (31.0-37.0); MCV 89.6 fL (80.0-100.0); MEAN PLATELET VOLUME 11.5 fL (7.4-10.4); MONOCYTES 7.4 % (2-11); NEUTROPHILS 65.1 % (40-80); RBC 4.73 10x6/uL (4.00-5.40); RDW 15.1 % (11.5-14.5); WBC 8.4 10x3/uL (4.8-10.8)
[2019-06-25 10:15] LABS: PLATELET COUNT 150 10x3/uL (130-400)
[2019-06-25 10:21] LABS: CALC OSMOLALITY 281 mosm/kg (275-300); CALCIUM 8.6 mg/dL (8.5-10.1); CARBON DIOXIDE 26.5 mmol/L (21.0-32.0); CHLORIDE - SERUM 104 mmol/L (98-107); CREATININE - SERUM 0.6 mg/dL (0.6-1.3); GLUCOSE 119 mg/dL (74-106); POTASSIUM - SERUM 4.9 mmol/L (3.5-5.1); SODIUM 140 mmol/L (136-145); UREA NITROGEN 18 mg/dL (7-18); eGFR NON AFRICAN AMERICAN > 90 mL/min (90-120)
[2019-06-25 10:32] LABS: APPEARANCE HAZY (CLEAR); BILIRUBIN NEGATIVE (NEGATIVE); COLOR YELLOW (YELLOW); GLUCOSE NEGATIVE (NEGATIVE); KETONE NEGATIVE (NEGATIVE); NITRITE POSITIVE (NEGATIVE); PROTEIN NEGATIVE (NEGATIVE); RED CELLS - URINE NONE SEEN /hpf (0-5); SPECIFIC GRAVITY 1.005 (1.005-1.020); UROBILINOGEN NORMAL (NORMAL); WHITE CELLS - URINE 0-5 /hpf (NEGATIVE)
[2019-06-25 10:33] LABS: BACTERIA MANY /hpf (NEGATIVE); EPITHELIAL CELLS 0-5 /hpf (0-5); MUCUS <1+ /lpf (NONE SEEN)
[2019-06-25 10:35] LABS: ALBUMIN 3.3 g/dL (3.4-5.0); ALKALINE PHOSPHATASE 77 U/L (46-116); ALT (SGPT) 23 U/L (10-68); BILIRUBIN - TOTAL 0.31 mg/dL (0.2-1.3); PROTEIN - SERUM 6.9 g/dL (6.4-8.2); THYROID STIMULATING HORMONE 0.67 uIU/mL (0.36-3.74)
[2019-06-25] MEDS ORDERED: MACROBID100 MG PO (10:43)
[2019-06-25] MEDS ORDERED: ANTIVERT12.5 MG PO (10:44)
[2019-06-25 11:03] VITALS: BP 140/60
== END 2019-06-25 11:07 | disposition home or self-care (01) ==
LOC: D.ER 09:26
PROVIDERS: Emergency Medicine
DX: R42 Dizziness and giddiness (principal); N39.0 Urinary tract infection, site not specified; E11.9 Type 2 diabetes mellitus without complications; Z79.4 Long term (current) use of insulin; J44.9 Chronic obstructive pulmonary disease, unspecified; E07.9 Disorder of thyroid, unspecified

== ENCOUNTER 2019-08-06 19:50 | Emergency (ER) | payer MEDICARE ==
[~2019-08-06] VITALS: Ht 157.5 cm; Wt 172.4 kg
[~2019-08-06 19:50] MED LIST changes: +ANTIVERT12.5 MG PO; +MACROBID100 MG PO
[2019-08-06 20:00] VITALS: Ht 157.5 cm; Wt 172.4 kg
[2019-08-06 20:13] LABS: APPEARANCE HAZY (CLEAR); COLOR YELLOW (YELLOW); NITRITE POSITIVE (NEGATIVE)
[2019-08-06 20:14] LABS: BILIRUBIN NEGATIVE (NEGATIVE); GLUCOSE NEGATIVE (NEGATIVE); KETONE NEGATIVE (NEGATIVE); PROTEIN 1+ mg/dL (NEGATIVE); UROBILINOGEN NORMAL (NORMAL)
[2019-08-06 20:15] LABS: BACTERIA MODERATE /hpf (NEGATIVE); EPITHELIAL CELLS 0-5 /hpf (0-5); RED CELLS - URINE 0-5 /hpf (0-5)
[2019-08-06 20:24] LABS: BASOPHILS 0 % (0-2); EOSINOPHILS 0.1 % (0-7); HEMATOCRIT 40.5 % (36.0-48.0); HEMOGLOBIN 12.8 g/dL (12-16); IMMATURE GRANULOCYTES 0.6 % (0-5); LYMPHOCYTES 4.2 % (15-50); MCH 27.8 pg (26.0-34.0); MCHC 31.6 g/dL (31.0-37.0); MEAN PLATELET VOLUME 10.9 fL (7.4-10.4); MONOCYTES 6.2 % (2-11); NEUTROPHILS 88.9 % (40-80); RDW 15.3 % (11.5-14.5); WBC 16.3 10x3/uL (4.8-10.8)
[2019-08-06 20:25] LABS: PLATELET COUNT 116 10x3/uL (130-400)
[2019-08-06 20:32] LABS: APTT 30.5 SECONDS (22.8-39.4); CALCIUM 8.9 mg/dL (8.5-10.1); CARBON DIOXIDE 31.6 mmol/L (21.0-32.0); CHLORIDE - SERUM 100 mmol/L (98-107); CREATININE - SERUM 0.8 mg/dL (0.6-1.3); POTASSIUM - SERUM 4.4 mmol/L (3.5-5.1); PROTIME 13.2 SECONDS (11.6-15.0); SODIUM 137 mmol/L (136-145); UREA NITROGEN 16 mg/dL (7-18); eGFR NON AFRICAN AMERICAN 79 mL/min (90-120)
[2019-08-06 20:48] LABS: ALBUMIN 3.2 g/dL (3.4-5.0); ALKALINE PHOSPHATASE 118 U/L (30-120); ALT (SGPT) 284 U/L (10-68); BILIRUBIN - TOTAL 1.64 mg/dL (0.2-1.3); CKMB 0.3 U/L (0.0-3.6); CREATINE KINASE 69 UL (21-215); LIPASE 96 U/L (73-393); MAGNESIUM - SERUM 1.8 mg/dL (1.8-2.4); PROTEIN - SERUM 7.7 g/dL (6.4-8.2); THYROID STIMULATING HORMONE 0.29 uIU/mL (0.36-3.74)
[2019-08-06 20:52] LABS: CALC OSMOLALITY 279 mosm/kg (275-300); GLUCOSE 188 mg/dL (74-106); TROPONIN-I < 0.017 ng/mL (0.000-0.060)
[2019-08-07] MEDS ORDERED: FLAGYL500 MG PO (00:12)
[2019-08-07 00:30] VITALS: BP 125/64
== END 2019-08-07 00:30 | disposition other institution (70) ==
LOC: D.ER 19:50
PROVIDERS: Emergency Medicine
DX: K80.51 Calculus of bile duct without cholangitis or cholecystitis with obstruction (principal); N10 Acute pyelonephritis; J44.9 Chronic obstructive pulmonary disease, unspecified; R09.02 Hypoxemia; R11.2 Nausea with vomiting, unspecified; R00.0 Tachycardia, unspecified; E11.65 Type 2 diabetes mellitus with hyperglycemia; Z79.4 Long term (current) use of insulin; I10 Essential (primary) hypertension; R01.1 Cardiac murmur, unspecified

== ENCOUNTER → 2019-09-09 11:16 | Outpatient (CLI) | payer MEDICARE ==
[2019-08-06 20:00] VITALS: BMI 49.5
[~2019-09-09 11:16] MED LIST changes: +FLAGYL500 MG PO
== END | disposition home or self-care (01) ==
LOC: D.NM 11:16
PROVIDERS: ATTEND Urology
DX: N13.30 Unspecified hydronephrosis (principal)

== ENCOUNTER → 2019-09-16 20:57 | Outpatient (CLI) | payer MEDICARE ==
[2019-08-06 20:00] VITALS: BMI 49.5
== END | disposition home or self-care (01) ==
LOC: D.LABREF 20:57
PROVIDERS: ATTEND Urology
DX: R82.90 Unspecified abnormal findings in urine (principal)

== ENCOUNTER → 2019-10-01 07:16 | Day surgery (SDC) | payer MEDICARE ==
[~2019-10-01] VITALS: Ht 157.5 cm; Wt 129.1 kg
[2019-10-01 07:37] LABS: HEMATOCRIT 39.5 % (36.0-48.0); HEMOGLOBIN 11.8 g/dL (12-16); MCH 27.2 pg (26.0-34.0); MCHC 29.9 g/dL (31.0-37.0); MEAN PLATELET VOLUME 10.7 fL (7.4-10.4); RBC 4.34 10x6/uL (4.00-5.40); WBC 7.9 10x3/uL (4.8-10.8)
[2019-10-01 07:46] LABS: CALC OSMOLALITY 280 mosm/kg (275-300); CALCIUM 9.2 mg/dL (8.5-10.1); CARBON DIOXIDE 30.1 mmol/L (21.0-32.0); CHLORIDE - SERUM 102 mmol/L (98-107); CREATININE - SERUM 0.7 mg/dL (0.6-1.3); GLUCOSE 151 mg/dL (74-106); POTASSIUM - SERUM 4.2 mmol/L (3.5-5.1); SODIUM 138 mmol/L (136-145); UREA NITROGEN 18 mg/dL (7-18); eGFR NON AFRICAN AMERICAN > 90 mL/min (90-120)
[2019-10-01 08:15] VITALS: BP 123/63; Ht 157.5 cm; Wt 129.1 kg
--- NOTE | 2019-10-01 09:11 | NUR ---
DR. CHAMBERLAIN NOTIFIED AND REVIEWED PT'S BEHAVIOR AND ASSESSMENT RESULTS. PT IS A LOW RISK PER DR. RAVI. DR. CHAMBERLAIN STATED TO GIVE RESOURCES TO PT AT TIME OF DISCHARGE. NO FURTHER ORDERS AT THIS TIME. RESOURCES REVIWED [facility] PT AND SHE VERBALIZIED UNDERSTANDING.
--- NOTE | 2019-10-01 12:08 | OP ---
PATIENT NAME: DARLINE HUDDLESTON MEDICAL RECORD: [id number] :[birth year] LOCATION:D.OPS ADMISSION DATE: SURGEON: YUSUF MATHIS MD DATE OF OPERATION: 10/01/2019 SURGEON: Yusuf Mathis MD ANESTHESIA: General anesthesia by Preston Mathias CRNA. DIAGNOSIS: Left proximal ureteral stone, 3 mm in size. PROCEDURE: Left extracorporeal shock wave lithotripsy (ESWL) times 4000 shocks. FINDINGS: Radiodense left proximal ureteral stone, 3 mm at the L2 transverse process. ESTIMATED BLOOD LOSS: None. CLINICAL HISTORY: This is a 54-year-old female with diabetes mellitus and a history of bilateral ureteral reimplantations as a child to treat ureteral reflux. She continues to have recurrent urinary tract infections. She has previously grown Citrobacter and recently she grew Enterobacter. She is currently on the linezolid to treat this. CT scan shows a left 3 mm stone originally in the kidney. Lasix renal scan shows no obstruction of either kidney and there is no hydronephrosis. She is on vaginal estrogen cream also. She may have an infected left renal stone and we are now treating it with lithotripsy. She had a preoperative KUB. This did not show the stone clearly as she has a lot of fecal material in the bowels obstructing it. Therefore, we will put her on the treatment table and see if we can see a definite stone under fluoroscopy. She is not allergic to any medications. She had ampicillin and sulbactam IV microsoft infrastructure consultant to the OR. DESCRIPTION OF PROCEDURE: The patient was placed on the treatment table. The fluoroscopy was performed and we identified the stone at the L2 transverse process on the left side. She was then placed under general anesthetic. She had to be oblique to little bit with the right side up. The stone was targeted in 2 planes. She was given the maximum power due to her large size. Even after 3000 shocks the stone was not visibly broken up. This can happen with the ureteral stones if they do not appear to be broken up even if they are, due to the ureteral tissue holding the stone pieces together. However, to make sure that she got the maximum benefit of this treatment, we gave her the full 4000 shocks that we can give in the ureter. I will see her in followup in 2 weeks' time with a KUB. TRANSINT:[id number] Voice Confirmation ID: [id number] DOCUMENT ID: [id number] YUSUF MATHIS MD at 1208 CC: [id number] DICTATION DATE: 10/01/19 1051 DRYING SUPERVISOR: 10/01/19 1144 REG [place] [id number] [place] [id number]
--- NOTE | 2019-10-01 13:21 | NUR ---
1248 TAKEN OUT VIA W/C AND ASSISTED TO CAR WITH FRIEND. ADVISED TO CALL OR COME BACK IF ANY PROBLEMS.
== END | disposition home or self-care (01) ==
LOC: D.OPS 07:16 → D.PAN 09:45 → D.OPS 09:45
PROVIDERS: Anesthesiology; ATTEND Urology
DX: N20.1 Calculus of ureter (principal); N30.90 Cystitis, unspecified without hematuria; Z87.440 Personal history of urinary (tract) infections; E11.9 Type 2 diabetes mellitus without complications; Z79.4 Long term (current) use of insulin; J45.909 Unspecified asthma, uncomplicated; E07.9 Disorder of thyroid, unspecified

== ENCOUNTER 2019-10-21 17:51 | Inpatient (IN) | payer MEDICARE ==
[~2019-10-21] VITALS: Ht 157.5 cm; Wt 122.5 kg
[2019-10-21 18:31] LABS: BASOPHILS 0.1 % (0-2); HEMATOCRIT 40.9 % (36.0-48.0); HEMOGLOBIN 12.3 g/dL (12-16); LYMPHOCYTES 4.9 % (15-50); MCH 28.1 pg (26.0-34.0); MCHC 30.1 g/dL (31.0-37.0); MCV 93.4 fL (80.0-100.0); MEAN PLATELET VOLUME 11.2 fL (7.4-10.4); MONOCYTES 7.8 % (2-11); NEUTROPHILS 83.2 % (40-80); PLATELET COUNT 153 10x3/uL (130-400); RBC 4.38 10x6/uL (4.00-5.40); RDW 15.1 % (11.5-14.5); WBC 11.3 10x3/uL (4.8-10.8)
[2019-10-21 18:45] LABS: CALC OSMOLALITY 283 mosm/kg (275-300); CARBON DIOXIDE 34.4 mmol/L (21.0-32.0); CHLORIDE - SERUM 101 mmol/L (98-107); CREATININE - SERUM 0.7 mg/dL (0.6-1.3); GLUCOSE 144 mg/dL (74-106); POTASSIUM - SERUM 4.5 mmol/L (3.5-5.1); SODIUM 139 mmol/L (136-145); UREA NITROGEN 20 mg/dL (7-18); eGFR NON AFRICAN AMERICAN > 90 mL/min (90-120)
[2019-10-21 18:54] LABS: ALBUMIN 3.4 g/dL (3.4-5.0); ALKALINE PHOSPHATASE 118 U/L (30-120); ALT (SGPT) 223 U/L (10-68); AMYLASE - SERUM 147 U/L (25-115); BILIRUBIN - TOTAL 1.49 mg/dL (0.2-1.3); PROTEIN - SERUM 7.5 g/dL (6.4-8.2)
[2019-10-21 19:11] LABS: LIPASE 2665 U/L (73-393); TROPONIN-I < 0.017 ng/mL (0.000-0.060)
--- NOTE | 2019-10-21 19:29 | NUR ---
REPORT TO VIRY
[2019-10-21 19:40] LABS: BILIRUBIN NEGATIVE (NEGATIVE); GLUCOSE NEGATIVE (NEGATIVE); KETONE NEGATIVE (NEGATIVE); NITRITE POSITIVE (NEGATIVE); UROBILINOGEN NORMAL (NORMAL)
[2019-10-21 19:41] LABS: BACTERIA MANY /hpf (NEGATIVE); EPITHELIAL CELLS 0-5 /hpf (0-5); RED CELLS - URINE OCC /hpf (0-5); WHITE CELLS - URINE 0-5 /hpf (NEGATIVE)
--- NOTE | 2019-10-21 20:08 | NUR ---
PT TO RADIOLOGY.
--- NOTE | 2019-10-21 20:23 | NUR ---
PT RETURNED FROM RADIOLOGY.
--- NOTE | 2019-10-21 21:15 | NUR ---
PT ASSISTED UP TO BEDSIDE COMMODE. TOLERATED WELL, DENIES ANY FURTHER NEEDS. CALL LIGHT WITHIN REACH. WILL CONTINUE TO MONITOR.
--- NOTE | 2019-10-22 00:15 | NUR ---
A&O X 4, AMBULATES INDEPENDENTLY. 2L O2 IN USE, VS STABLE. REPORTS PAIN OF 6/10. REQUESTS POPSICLE. DENIES FURTHER NEEDS AT THIS TIME.
[2019-10-22 00:21] VITALS: BP 149/80; BMI 49.5
[2019-10-22 04:05] LABS: BASOPHILS 0.1 % (0-2); EOSINOPHILS 0.4 % (0-7); HEMATOCRIT 36.9 % (36.0-48.0); IMMATURE GRANULOCYTES 0.3 % (0-5); LYMPHOCYTES 6.4 % (15-50); MCHC 29.8 g/dL (31.0-37.0); MCV 93.9 fL (80.0-100.0); MEAN PLATELET VOLUME 11.2 fL (7.4-10.4); MONOCYTES 9.4 % (2-11); NEUTROPHILS 83.4 % (40-80); PLATELET COUNT 167 10x3/uL (130-400); RBC 3.93 10x6/uL (4.00-5.40); RDW 15.3 % (11.5-14.5); WBC 10.4 10x3/uL (4.8-10.8)
[2019-10-22 04:32] LABS: ALBUMIN 2.9 g/dL (3.4-5.0); ANION GAP 9.9 mmol/L (8-16); BILIRUBIN - TOTAL 1.43 mg/dL (0.2-1.3); CARBON DIOXIDE 33.5 mmol/L (21.0-32.0); LDL-HDL RATIO 1.9 ratio (1.5-3.5); MAGNESIUM - SERUM 1.7 mg/dL (1.8-2.4); PHOSPHOROUS 3.2 mg/dL (2.5-4.9); POTASSIUM - SERUM 4.4 mmol/L (3.5-5.1); PROTEIN - SERUM 6.7 g/dL (6.4-8.2)
[2019-10-22 04:42] LABS: CREATININE - SERUM 0.9 mg/dL (0.6-1.3)
--- NOTE | 2019-10-22 07:55 | NUR ---
PT RESTING IN BED WITH EYES CLOSED. RESP EVEN AND UNLABORED AT THIS TIME. O2 @ 2L NC IN PLACE. AWAKENS WITH NAME CALLED. PT REPORTS PAIN 5/10 AT THIS TIME. DISCUSSED NEXT TIME PAIN MED CAN BE ADMINISTERED PER MD ORDERS. PT VOICES UNDERSTANDING. IV TO LEFT FOREARM WITH NS @ 75ML/HR INFUSING VIA PUMP. SITE WITHOUT REDNESS OR EDEMA. DENIES FURTHER NEEDS AT THIS TIME. CL WITHIN REACH. ENCORUAGED TO CALL WITH NEEDS. CONTINUE POC
[2019-10-22 08:57] LABS: AMYLASE - SERUM 79 U/L (25-115); LIPASE 462 U/L (73-393)
[2019-10-22 09:13] VITALS: BP 114/62
[2019-10-22 12:36] VITALS: BP 119/75
[2019-10-22 16:48] VITALS: BP 128/62
[2019-10-22] MEDS ORDERED: ZOLOFT100 MG PO (19:12)
[2019-10-22 20:00] VITALS: BP 135/61
[2019-10-23] VITALS (11 sets, daily range): BP systolic 93–147; BP diastolic 49–76; Ht 157.5 cm; Wt 122.5 kg
--- NOTE | 2019-10-23 02:28 | NUR ---
I have reviewed this patient and I concur with the Shift Assessment completed by the Licensed Practical Nurse today this shift.
[2019-10-23 06:25] LABS: BASOPHILS 0.2 % (0-2); EOSINOPHILS 2.6 % (0-7); HEMOGLOBIN 10.3 g/dL (12-16); IMMATURE GRANULOCYTES 0.3 % (0-5); LYMPHOCYTES 27.1 % (15-50); MCH 27.8 pg (26.0-34.0); MCHC 29.4 g/dL (31.0-37.0); MCV 94.6 fL (80.0-100.0); MEAN PLATELET VOLUME 11.6 fL (7.4-10.4); MONOCYTES 10.1 % (2-11); NEUTROPHILS 59.7 % (40-80); PLATELET COUNT 138 10x3/uL (130-400); RDW 15.5 % (11.5-14.5)
[2019-10-23 07:04] LABS: WBC 5.8 10x3/uL (4.8-10.8)
[2019-10-23 07:07] LABS: ALBUMIN 2.7 g/dL (3.4-5.0); ALKALINE PHOSPHATASE 114 U/L (30-120); BILIRUBIN - TOTAL 0.63 mg/dL (0.2-1.3); CALCIUM 7.8 mg/dL (8.5-10.1); CARBON DIOXIDE 30.6 mmol/L (21.0-32.0); CHLORIDE - SERUM 105 mmol/L (98-107); GLUCOSE 151 mg/dL (74-106); MAGNESIUM - SERUM 1.8 mg/dL (1.8-2.4); PRO BNP 213 pg/mL (0-125); PROTEIN - SERUM 5.9 g/dL (6.4-8.2); SODIUM 141 mmol/L (136-145)
[2019-10-23 07:11] LABS: AMYLASE - SERUM 26 U/L (25-115); CALC OSMOLALITY 282 mosm/kg (275-300); CREATININE - SERUM 0.6 mg/dL (0.6-1.3); LIPASE 99 U/L (73-393); PHOSPHOROUS 2.2 mg/dL (2.5-4.9); UREA NITROGEN 11 mg/dL (7-18)
[2019-10-23 07:12] LABS: ALT (SGPT) 193 U/L (10-68); eGFR NON AFRICAN AMERICAN > 90 mL/min (90-120)
[2019-10-23 07:23] LABS: INR 1.19 (0.85-1.17)
[2019-10-23 07:24] LABS: APTT 36.3 SECONDS (22.8-39.4)
[2019-10-23] MEDS ORDERED: HYDROCODON-ACE1 EA10 PO (10:54)
--- NOTE | 2019-10-23 11:30 | NUR ---
1110 OPA DISCONTINUED. PATIENT SELF MAINTAINING PATENT AIRWAY.
--- NOTE | 2019-10-23 13:30 | OP ---
PATIENT NAME: DARLINE HUDDLESTON MEDICAL RECORD: [id number] :[birth year] LOCATION:D.MS Jeffrey2206 ADMISSION DATE:10/21/19 SURGEON: SMOOTH LIND MD DATE OF OPERATION: 10/23/2019 PREOPERATIVE DIAGNOSES: 1. Acute cholecystitis. 2. Acute pancreatitis. 3. Abnormal liver function tests. 4. Fatty liver disease. 5. Diabetes mellitus. 6. Hypertension. POSTOPERATIVE DIAGNOSES: 1. Acute cholecystitis. 2. Acute pancreatitis. 3. Abnormal liver function tests. 4. Fatty liver disease. 5. Diabetes mellitus. 6. Hypertension. PROCEDURES: 1. Laparoscopic cholecystectomy with intraoperative cholangiogram. 2. Fluoroscopic interpretation. 3. Crow-Cut liver biopsy. SURGEON: Smooth Lind MD REPORT OF PROCEDURE: The patient's abdomen was prepped and draped in sterile fashion. A cutdown was made in the midline just above the umbilicus. Electrocautery was used to dissect through the subcutaneous tissues, 0 Vicryls were placed in the fascia bilaterally and the fascia was incised with a 15-blade. I then bluntly entered the peritoneal cavity and placed a 12-mm Clay port. Under direct visualization, a 5-mm trocar was placed in the epigastrium and two more 5-mm trocars were placed in the right subcostal region. The gallbladder was noted to be distended with some mild inflammatory changes. A needle was used and aspirate this gallbladder and removed some of the bilious contents. We then dissected down to the cystic artery and cystic duct. Once we had our critical view of safety and could see the structures, then we clipped the cystic artery proximally and distally and ligated this in standard fashion. The cystic duct was clipped twice proximally and then an opening was made. A Cook cholangiocath was brought through the anterior abdominal wall and placed into the distal aspect of the cystic duct. A cholangiogram was performed and we could see that there was free flow of the contrast through the patient's cystic duct into the common bile duct and common hepatic ducts. There was flow of contrast out into the duodenum and we could see it backfilling into the patient's pancreas and hepatic ducts bilaterally. The patient's common bile duct was noted to be markedly dilated, but there were no filling defects seen throughout. There did not appear to be any masses or strictures present. At this point, the cholangiocath was removed. The cystic duct was clipped 3 times distally and ligated in standard fashion. We took the gallbladder off the liver bed and placed this into an Endo Catch bag. At this point, liver biopsies were taken from the right lobe of the liver times 4 using a Crow-Cut biopsy device. Any bleeding from these sites or from the liver bed were treated with electrocautery. At this point, the ports and insufflation were then removed and OPERATIVE REPORT [id number] FALQUITODARLINE Mitchell the gallbladder was taken out through the midline incision. This midline incision was then closed with interrupted 0 Vicryls times 4. The wounds were irrigated out with normal saline and infused with 10 mL of 0.25% Marcaine with epinephrine. The skin incisions were all closed with subcutaneous 5-0 Monocryl and dressed appropriately. COMPLICATIONS: None. CONDITION: Stable. ANESTHESIA: General endotracheal and local. BLOOD LOSS: Minimal. TRANSINT:[id number] Voice Confirmation ID: [id number] DOCUMENT ID: [id number] SMOOTH LIND MD at 1330 CC: [id number] DICTATION DATE: 10/23/19 1059 VENEER SAMPLE MAKER: 10/23/19 1312 ADM IN [facility] [address] [place] [address]
[2019-10-24 00:56] VITALS: BP 144/72
--- NOTE | 2019-10-24 02:00 | NUR ---
PT C/O LEFT FOREARM IV PAINFUL AND BURNING. REMOVED IV CATHETER INTACT. IV RESITED TO RIGHT FOREARM BY EMIGDIO REEVES. NO OTHER NEEDS. WILL CONTINUE TO MONITOR.
[2019-10-24 03:00] VITALS: BP 113/62
[2019-10-24 07:02] LABS: BASOPHILS 0.1 % (0-2); EOSINOPHILS 0.1 % (0-7); HEMATOCRIT 34.7 % (36.0-48.0); HEMOGLOBIN 10.3 g/dL (12-16); IMMATURE GRANULOCYTES 0.3 % (0-5); LYMPHOCYTES 12.5 % (15-50); MCH 27.8 pg (26.0-34.0); MCHC 29.7 g/dL (31.0-37.0); MCV 93.8 fL (80.0-100.0); MEAN PLATELET VOLUME 11.2 fL (7.4-10.4); MONOCYTES 7.1 % (2-11); NEUTROPHILS 79.9 % (40-80); PLATELET COUNT 157 10x3/uL (130-400); RDW 15.2 % (11.5-14.5)
[2019-10-24 07:25] LABS: ALBUMIN 2.7 g/dL (3.4-5.0); ALKALINE PHOSPHATASE 128 U/L (30-120); ALT (SGPT) 202 U/L (10-68); BILIRUBIN - TOTAL 0.46 mg/dL (0.2-1.3); CALCIUM 8.1 mg/dL (8.5-10.1); CARBON DIOXIDE 28.9 mmol/L (21.0-32.0); CHLORIDE - SERUM 103 mmol/L (98-107); CREATININE - SERUM 0.7 mg/dL (0.6-1.3); PHOSPHOROUS 2.4 mg/dL (2.5-4.9); POTASSIUM - SERUM 4.2 mmol/L (3.5-5.1); PROTEIN - SERUM 6.8 g/dL (6.4-8.2); SODIUM 140 mmol/L (136-145); UREA NITROGEN 9 mg/dL (7-18); eGFR NON AFRICAN AMERICAN > 90 mL/min (90-120)
[2019-10-24 07:26] LABS: CALC OSMOLALITY 285 mosm/kg (275-300); GLUCOSE 240 mg/dL (74-106)
[2019-10-24 08:45] VITALS: BP 152/89
--- NOTE | 2019-10-24 09:00 | NUR ---
ALERT AND ORIENTED X4. LAP SITES INTACT WITH NO S/S OF INFECTION NOTED. ABDOMEN OBESE WITH BOWEL SOUNDS HYPOACTIVE X4 AND STATES HAS NOT HAD ANY FLATULANCE AT THIS TIME. UP ADLIB WITH PAIN MANAGED WITH MORPHINE PRN. TELEMETRY INTACT AND DENIES ANY CHEST PAIN OR DISCOMFORT. IV TO RT. F/A WITH IVF INFUSING AT PRESCRIBED RATE. SCD'S ORDEREDD BUT DENIES TO WEAR AT THIS TIME. LOVENOX THERPY IN USE WELL. ENCOURAQGED TO USE CALL LIGHT FOR ASSSIT.
--- NOTE | 2019-10-24 16:13 | NUR ---
IV DISCONTINUED AND VERBALIZED UNDERSTANDING OF DISCHARGE INSTRUCTIONS. STABLE AT TIME OF DEPARTURE WEARING PERSONAL HOME PORTABLE O2.
--- NOTE | 2019-10-24 16:21 | MORECARE ---
CASE MANAGEMENT DISCHARGE SUMMARY PATIENT: DARLINE LOPEZ UNIT: [id number] ADM DATE: 10/21/19 AGE: 54 : 65 SEX: F ROOM/BED: D.2206 AUTHOR: NATALIYA SIERRA PHYSICIAN: REFERRING PHYSICIAN: VERONICA RODGERS MD DATE OF SERVICE: 10/24/19 Discharge Plan Patient Name: DARLINE LOPEZ Facility: [facility]:[place] : 1965 Planned Disposition: Home or Self Care Anticipated Discharge Date: 10/24/19 Discharge Date: 10/24/2019 Expected LOS: 3 Initial Reviewer: [email or web address] Initial Review Date: 10/22/2019 Generated: 10/24/19 5:21 pm Comments DCP- Discharge Planning Updated by [email or web address]: Marlin Roman on 10/24/19 3:[address] CM met with patient regarding DC needs/plans. Patient is in agreement to complete assessment. PCP: Lisa Mack APRN. PHARMACY: [facility]. DME: O2, portable O2--F[employer]'s, Trilogy-- V[employer]Med, Nebulizer, GLUCOMETER, Cane. Patient states she lives alone and plans to return home and states this is a safe environment. Emergency contact: Christina Flower (friend) [phone] drive patient home. Patient denies the need for HHS, Rehab, SNF. Patient has her portable O2 at bedside. Voices no needs at this time. DC IMM signed. Coverage Notice Reviewer: [id number] - Marlin Roman Notice Issued Date-Time: 10/24/2019 15:53 Notice Type: IM Discharge Notice Notice Delivered To: Patient Relationship to Patient: Self Manager Disaster Recovery Name: Darline Lopez Delivery Method: HAND - Hand Delivered Luli Days: Prior Verbal Notification: Recipient Understood Notice: Yes Recipient Signature: Yes Med Rec Note Co-signed by Attending: Coverage Notice Comment: DC IMM signed by patient, declined her copy. Original placed on the chart. Patient Name: DARLINE LOPEZ Page [id number] at 1621 All edits/amendments must be made on the electronic document DICTATION DATE: 10/24/191620 MUTTON PUNCHER: ESCOBAR 10/24/191620 RPT#: [id number] DC DATE:10/24/19 STATUS: DIS IN [facility] [address] [place] [address] END OF REPORT
--- NOTE | 2019-10-24 16:28 | MORECARE ---
CASE MANAGEMENT DISCHARGE SUMMARY PATIENT: DARLINE LOPEZ UNIT: [id number] ADM DATE: 10/21/19 AGE: 54 : 65 SEX: F ROOM/BED: D.2206 AUTHOR: RIGODOC PHYSICIAN: REFERRING PHYSICIAN: VERONICA RODGERS MD DATE OF SERVICE: 10/24/19 Discharge Plan Patient Name: DARLINE LOPEZ Facility: [facility]:[place] : 1965 Planned Disposition: Home or Self Care Anticipated Discharge Date: 10/24/19 Discharge Date: 10/24/2019 Expected LOS: 3 Initial Reviewer: [email or web address] Initial Review Date: 10/22/2019 Generated: 10/24/19 5:27 pm Comments DCP- Discharge Planning Updated by [email or web address]: Marlin Roman on 10/24/19 3:[address] CM met with patient regarding DC needs/plans. Patient is in agreement to complete assessment. PCP: Lisa Mack APRN. PHARMACY: [facility] on [facility]. DME: O2, portable O2--[employer], Trilogy-- Vie-Med, Nebulizer, GLUCOMETER, Cane. Patient states she lives alone and plans to return home and states this is a safe environment. Emergency contact: Christina Flower (friend) [phone] [address] also drive patient home. Patient denies the need for HHS, Rehab, SNF. Patient has her portable O2 at bedside. Voices no needs at this time. DC IMM signed. DCPIA - Discharge Planning Initial Assessment Updated by [email or web address]: Marlin Roman on 10/24/19 4:26 pm * Is the patient Alert and Oriented? Yes * How many steps to enter\exit or inside your home? * PCP Lisa Burdick * Pharmacy [facility] * Preadmission Environment Home Alone * ADLs Independent * Equipment Cane CPAP Glucometer Nebulizer Oxygen * Other Equipment Trilogy * List name and contact numbers for known caregivers / representatives who currently or will assist patient after discharge: Trilogy Portable O2 * Verbal permission to speak to the caregivers and representatives has been obtained from the patient. No * Community resources currently utilized None * Please name any agencies selected above. [facility] * Additional services required to return to the preadmission environment? No * Can the patient safely return to the preadmission environment? Yes * Has this patient been hospitalized within the prior 30 days at any hospital? No Coverage Notice Reviewer: [id number] Thierno Roman Notice Issued Date-Time: 10/24/2019 15:53 Notice Type: IM Discharge Notice Notice Delivered To: Patient Relationship to Patient: Self Power Transformer Repairer Name: Darline Lopez Delivery Method: HAND - Hand Delivered Luli Days: Prior Verbal Notification: Recipient Understood Notice: Yes Recipient Signature: Yes Med Rec Note Co-signed by Attending: Coverage Notice Comment: DC IMM signed by patient, declined her copy. Original placed on the chart. Last DP export: 10/24/19 3:21 p Patient Name: DARLINE LOPEZ Page [id number] at 1628 All edits/amendments must be made on the electronic document DICTATION DATE: 10/24/191626 SOAKING ROOM OPERATOR: ESCOBAR 10/24/191626 RPT#: [id number] DC DATE:10/24/19 STATUS: DIS IN [facility] [address] [place] [address] END OF REPORT
--- NOTE | 2019-10-24 16:34 | MORECARE ---
CASE MANAGEMENT DISCHARGE SUMMARY PATIENT: DARLINE LOPEZ UNIT: [id number] ADM DATE: 10/21/19 AGE: 54 : 65 SEX: F ROOM/BED: D.2206 AUTHOR: RIGODOC PHYSICIAN: REFERRING PHYSICIAN: VERONICA RODGERS MD DATE OF SERVICE: 10/24/19 Discharge Plan Patient Name: DARLINE LOPEZ Facility: [facility]:[place] : 1965 Planned Disposition: Home or Self Care Anticipated Discharge Date: 10/24/19 Discharge Date: 10/24/2019 Expected LOS: 3 Initial Reviewer: [email or web address] Initial Review Date: 10/22/2019 Generated: 10/24/19 5:34 pm Comments DCP- Discharge Planning Updated by [email or web address]: Marlin Roman on 10/24/19 3:[address] CM met with patient regarding DC needs/plans. Patient is in agreement to complete assessment. PCP: Lisa Mack APRN. PHARMACY: [facility] on [facility]. DME: O2, portable O2--[employer], Trilogy-- Vie-Med, Nebulizer, GLUCOMETER, Cane. Patient states she lives alone and plans to return home and states this is a safe environment. Emergency contact: Christina Flower (friend) [phone] patient home. Patient denies the need for HHS, Rehab, SNF. Patient has her portable O2 at bedside. Voices no needs at this time. DC IMM signed. DCPIA - Discharge Planning Initial Assessment Updated by [id number]: Marlin Roman on 10/24/19 4:26 pm * Is the patient Alert and Oriented? Yes * How many steps to enter\exit or inside your home? * PCP Lisa Burdick * Pharmacy [facility] * Preadmission Environment Home Alone * ADLs Independent * Equipment Cane CPAP Glucometer Nebulizer Oxygen * Other Equipment Trilogy * List name and contact numbers for known caregivers / representatives who currently or will assist patient after discharge: Trilogy Portable O2 * Verbal permission to speak to the caregivers and representatives has been obtained from the patient. No * Community resources currently utilized None * Please name any agencies selected above. [facility] * Additional services required to return to the preadmission environment? No * Can the patient safely return to the preadmission environment? Yes * Has this patient been hospitalized within the prior 30 days at any hospital? No Coverage Notice Reviewer: [email or web address] Thierno Roman Notice Issued Date-Time: 10/24/2019 15:53 Notice Type: IM Discharge Notice Notice Delivered To: Patient Relationship to Patient: Self Communications Associate Name: Darline Lopez Delivery Method: HAND - Hand Delivered Luli Days: Prior Verbal Notification: Recipient Understood Notice: Yes Recipient Signature: Yes Med Rec Note Co-signed by Attending: Coverage Notice Comment: DC IMM signed by patient, declined her copy. Original placed on the chart. Last DP export: 10/24/19 3:28 p Patient Name: DARLINE LOPEZ Page [phone] at 1634 All edits/amendments must be made on the electronic document DICTATION DATE: 10/24/19 1634 COLLAR STITCHER: ESCOBAR 10/24/19 1634 RPT#: [id number] DC DATE:10/24/19 STATUS: DIS IN [facility] [address] [place] [address] END OF REPORT
== END 2019-10-24 16:15 | disposition home or self-care (01) | DRG 417 ==
LOC: D.ER 17:51 → D.MS 22:51
PROVIDERS: Family Medicine; Surgery; ADMIT Family Medicine; ATTEND Family Medicine
PROC: 0FB04ZX Excision of Liver, Percutaneous Endoscopic Approach, Diagnostic (ICD-10-PCS; 2019-10-23)
PROC: BF101ZZ Fluoroscopy of Bile Ducts using Low Osmolar Contrast (ICD-10-PCS; 2019-10-23)
PROC: 0FT44ZZ Resection of Gallbladder, Percutaneous Endoscopic Approach (ICD-10-PCS; principal; 2019-10-23 08:30)
DX: K81.0 Acute cholecystitis (principal); K85.90 Acute pancreatitis without necrosis or infection, unspecified; N39.0 Urinary tract infection, site not specified; Z68.42 Body mass index [BMI] 45.0-49.9, adult; I50.20 Unspecified systolic (congestive) heart failure; E80.6 Other disorders of bilirubin metabolism; E11.65 Type 2 diabetes mellitus with hyperglycemia; E66.01 Morbid (severe) obesity due to excess calories; J44.9 Chronic obstructive pulmonary disease, unspecified; I11.0 Hypertensive heart disease with heart failure; K21.9 Gastro-esophageal reflux disease without esophagitis; E03.9 Hypothyroidism, unspecified; F32.9 Major depressive disorder, single episode, unspecified

== ENCOUNTER 2020-03-09 15:03 | Emergency (ER) | payer MEDICARE ==
[~2020-03-09] VITALS: Ht 157.5 cm; Wt 131.8 kg
[~2020-03-09 15:03] MED LIST changes: +HYDROCODON-ACE1 EA10 PO
[2020-03-09 15:12] VITALS: BP 148/77; Ht 157.5 cm; Wt 131.8 kg
[2020-03-09] MEDS ORDERED: OXYCONTIN10 MG (15:21)
[2020-03-09] MEDS ORDERED: CLEOCIN HCL300 MG PO (15:42)
== END 2020-03-09 15:50 | disposition home or self-care (01) ==
LOC: D.ER 15:03
DX: L03.119 Cellulitis of unspecified part of limb (principal); I89.0 Lymphedema, not elsewhere classified; E11.9 Type 2 diabetes mellitus without complications; Z79.4 Long term (current) use of insulin; I10 Essential (primary) hypertension; J44.9 Chronic obstructive pulmonary disease, unspecified; J45.909 Unspecified asthma, uncomplicated; K21.9 Gastro-esophageal reflux disease without esophagitis

== ENCOUNTER 2020-10-14 13:45 | Outpatient (CLI) | payer MEDICARE ==
[2020-03-09 15:12] VITALS: BMI 53.2
[~2020-10-14 13:45] MED LIST changes: +OXYCONTIN10 MG
== END 2020-10-14 14:15 | disposition home or self-care (01) ==
LOC: D.MAMMO 13:45
PROVIDERS: ATTEND Nurse Practitioner
DX: Z12.31 Encounter for screening mammogram for malignant neoplasm of breast (principal)

== ENCOUNTER → 2020-12-06 12:18 | Outpatient (CLI) | payer MEDICARE ==
[2020-03-09 15:12] VITALS: BMI 53.2
[2020-12-06 13:09] LABS: BASOPHILS 0.6 % (0-2); HEMATOCRIT 37.5 % (36.0-48.0); HEMOGLOBIN 12.1 g/dL (12-16); LYMPHOCYTES 25.9 % (15-50); MCH 27.7 pg (26.0-34.0); MCHC 32.2 g/dL (31.0-37.0); MCV 85.9 fL (80.0-100.0); NEUTROPHILS 62.5 % (40-80); PLATELET COUNT 159 10x3/uL (130-400); RBC 4.37 10x6/uL (4.00-5.40); RDW 15.1 % (11.5-14.5); WBC 9.4 10x3/uL (4.8-10.8)
[2020-12-06 13:22] LABS: ALBUMIN 3.5 g/dL (3.4-5.0); ALKALINE PHOSPHATASE 91 U/L (30-120); ALT (SGPT) 23 U/L (10-68); BILIRUBIN - TOTAL 0.21 mg/dL (0.2-1.3); CALC OSMOLALITY 283 mosm/kg (275-300); CALCIUM 8.8 mg/dL (8.5-10.1); CHLORIDE - SERUM 104 mmol/L (98-107); CREATININE - SERUM 0.8 mg/dL (0.6-1.3); POTASSIUM - SERUM 4.7 mmol/L (3.5-5.1); PROTEIN - SERUM 7.4 g/dL (6.4-8.2); SODIUM 141 mmol/L (136-145); UREA NITROGEN 22 mg/dL (7-18); eGFR NON AFRICAN AMERICAN 79 mL/min (90-120)
[2020-12-06 13:24] LABS: GLUCOSE 97 mg/dL (74-106)
== END | disposition home or self-care (01) ==
LOC: D.LAB 12:18
PROVIDERS: ATTEND Psychiatry & Neurology Neurology
DX: R56.9 Unspecified convulsions (principal)

== ENCOUNTER → 2020-12-13 08:19 | Outpatient (CLI) | payer MEDICARE ==
[2020-03-09 15:12] VITALS: BMI 53.2
[2020-12-13 08:51] LABS: ALBUMIN 3.4 g/dL (3.4-5.0); ALKALINE PHOSPHATASE 97 U/L (30-120); ALT (SGPT) 24 U/L (10-68); BILIRUBIN - TOTAL 0.19 mg/dL (0.2-1.3); CALC OSMOLALITY 284 mosm/kg (275-300); CALCIUM 8.9 mg/dL (8.5-10.1); CARBON DIOXIDE 32.8 mmol/L (21.0-32.0); CHLORIDE - SERUM 104 mmol/L (98-107); CREATININE - SERUM 0.7 mg/dL (0.6-1.3); GLUCOSE 117 mg/dL (74-106); POTASSIUM - SERUM 4.4 mmol/L (3.5-5.1); PROTEIN - SERUM 7.4 g/dL (6.4-8.2); SODIUM 140 mmol/L (136-145); UREA NITROGEN 27 mg/dL (7-18); eGFR NON AFRICAN AMERICAN > 90 mL/min (90-120)
== END | disposition home or self-care (01) ==
LOC: D.CN 08:00 → D.MRI 08:19 → D.CN 09:00 → D.MRI 09:00
PROVIDERS: ATTEND Psychiatry & Neurology Neurology
DX: G40.009 Localization-related (focal) (partial) idiopathic epilepsy and epileptic syndromes with seizures of localized onset, not intractable, without status epilepticus (principal)

== ENCOUNTER → 2020-12-14 08:11 | Outpatient (CLI) | payer MEDICARE ==
[2020-03-09 15:12] VITALS: BMI 53.2
== END | disposition home or self-care (01) ==
LOC: D.CN 08:00
PROVIDERS: ATTEND Psychiatry & Neurology Neurology
DX: G40.009 Localization-related (focal) (partial) idiopathic epilepsy and epileptic syndromes with seizures of localized onset, not intractable, without status epilepticus (principal)